=== PATIENT | female | born 1945 | race Caucasian/White ===

== ENCOUNTER 2016-10-12 | Outpatient (CLI) | payer MEDICARE, MEDICAID | END 2016-10-12 12:57 | disposition home or self-care (01) ==

== ENCOUNTER 2017-09-29 10:53 | Outpatient (CLI) | payer MEDICARE, MEDICAID ==
[2017-09-29 18:01] LABS: ALBUMIN 4.1 g/dL (3.2-5.5); ALBUMIN/GLOBULIN RATIO 1.4 (1.0-2.2); ALKALINE PHOSPHATASE 84 IU/L (42-121); ALT ALANINE AMINOTRANSFERASE 17 IU/L (10-60); AST ASPARTATE AMINOTRANSFERASE 26 IU/L (10-42); BILIRUBIN,TOTAL 0.3 mg/dL (0.2-1.0); BUN - BLOOD UREA NITROGEN 32 mg/dL (6-20); CALCIUM 8.8 mg/dL (8.5-10.3); CARBON DIOXIDE - CO2 25 mmol/L (21-32); CHLORIDE 107 mmol/L (101-111); CHOL/HDL RATIO 3.7 (<4.4); CHOLESTEROL 204 mg/dL; CREATININE 1.1 mg/dL (0.4-1.0); GFR - MDRD 49 (>89); GLUCOSE 94 mg/dL (70-100); HDL CHOLESTEROL 55 mg/dL; LDL CHOLESTEROL,CALCULATED 122 mg/dL; LDL/HDL RATIO 2.2 (<4.4); SODIUM 138 mmol/L (135-145); TOTAL PROTEIN 7.1 g/dL (6.7-8.2); VLDL CHOLESTEROL 27 mg/dL
[2017-09-29 18:25] LABS: BASOPHILS # (AUTO) 0.1 10^3/uL (0.0-0.1); BASOPHILS % (AUTO) 0.9 %; EOSINOPHILS # (AUTO) 0.2 10^3/uL (0.0-0.7); EOSINOPHILS % (AUTO) 4.1 %; HGB - HEMOGLOBIN 14.6 g/dL (12.0-16.0); LYMPHOCYTES # (AUTO) 1.7 10^3/uL (1.5-3.5); LYMPHOCYTES % (AUTO) 30.9 %; MEAN CORPUSCULAR HEMOGLOBIN 30.3 pg (27.0-31.0); MEAN CORPUSCULAR HGB CONC 32.9 g/dL (32.0-36.0); MEAN CORPUSCULAR VOLUME 92.1 fL (81.0-99.0); MONOCYTES # (AUTO) 0.4 10^3/uL (0.0-1.0); MONOCYTES % (AUTO) 7.7 %; NEUTROPHILS # (AUTO) 3.1 10^3/uL (1.5-6.6); NEUTROPHILS % (AUTO) 56.4 %; PLT - PLATELET COUNT 176 10^3/uL (130-450); RED BLOOD COUNT 4.83 10^6/uL (4.20-5.40); RED CELL DISTRIBUTION WIDTH 13.4 % (12.0-15.0); WHITE BLOOD COUNT 5.5 x10^3/uL (4.8-10.8)
== END 2017-09-29 10:54 | disposition home or self-care (01) ==
LOC: LAB.F 10:53
PROVIDERS: ATTEND Nurse Practitioner Family
DX: R53.83 Other fatigue (principal); E78.5 Hyperlipidemia, unspecified; E03.9 Hypothyroidism, unspecified
CPT/HCPCS: 36415; 80053; 80061; 84439; 84443; 85025

== ENCOUNTER 2017-11-24 12:25 | Outpatient (CLI) | payer MEDICARE, MEDICAID ==
[2017-11-24 18:00] LABS: THYROID STIMULATING HORMONE 2.55 uIU/mL (0.34-5.60)
[2017-11-24 18:02] LABS: FREE T4 (FREE THYROXINE) 2.07 ng/dL (0.58-1.64)
== END 2017-11-24 12:26 | disposition home or self-care (01) ==
LOC: LAB.R 12:25
PROVIDERS: ATTEND Nurse Practitioner Family
DX: E03.9 Hypothyroidism, unspecified (principal)
CPT/HCPCS: 36415; 84439; 84443

== ENCOUNTER 2018-01-31 10:55 | Outpatient (CLI) | payer MEDICARE, MEDICAID ==
[2018-01-31 17:56] LABS: THYROID STIMULATING HORMONE 5.09 uIU/mL (0.34-5.60)
[2018-01-31 17:59] LABS: FREE T4 (FREE THYROXINE) 0.82 ng/dL (0.58-1.64)
== END 2018-01-31 10:56 | disposition home or self-care (01) ==
LOC: LAB.F 10:55
PROVIDERS: ATTEND Nurse Practitioner Family
DX: E03.9 Hypothyroidism, unspecified (principal)
CPT/HCPCS: 36415; 84439; 84443

== ENCOUNTER 2018-02-21 10:44 | Outpatient (CLI) | payer MEDICARE, MEDICAID ==
[2018-02-21 11:05] LABS: CREATININE 0.9 mg/dL (0.4-1.0)
[2018-02-21] MEDS ORDERED: IOPAMIDOL-300 100 ML VIAL ONE (11:14)
[2018-02-21] MEDS ORDERED: IOPAMIDOL-300 50 ML VIAL ONE (11:14)
[2018-02-21] MEDS ORDERED: IOPAMIDOL-300 50 ML VIAL PO ONE (13:53)
[2018-02-21] MEDS ORDERED: IOPAMIDOL-300 100 ML VIAL IVP ONE (13:53)
--- NOTE | 2018-02-21 16:10 | CT Report ---
Procedure Date: 02/21/2018 Accession Number: [id number] / [id number] Procedure: CT - Chest W/ CPT Code: FULL RESULT: EXAM: Chest W/ 02/21/2018 12:28 PM CLINICAL INDICATION: Endometrial cancer COMPARISON: None TECHNIQUE: Axial CT images of the chest were obtained with 100 mL Isovue 300 intravenously. FINDINGS: The heart and great vessels demonstrate mild atherosclerotic calcification. No hilar or mediastinal lymphadenopathy is present. A small hiatal hernia is noted. The lungs demonstrate minimal atelectasis. No pulmonary nodule or mass lesion is present. No effusion or pneumothorax. Osseous structures demonstrate mild degenerative changes. Please refer to separate report of abdominal CT. IMPRESSION: No evidence of thoracic metastatic disease. CT DOSE REDUCTION STATEMENT In accordance with CT protocol optimization, one or more of the following were used for this exam: automated exposure control, adjustment of mA and or KV based on patient size, or use of iterative reconstructive technique.
--- NOTE | 2018-02-21 16:10 | CT Report ---
Procedure Date: 02/21/2018 Accession Number: [id number] / [id number] Procedure: CT - Abdomen/Pelvis W/ CPT Code: FULL RESULT: EXAM: Abdomen/Pelvis W/ 02/21/2018 12:28 PM CLINICAL INDICATION: Endometrial cancer COMPARISON: None TECHNIQUE: Axial CT images of the abdomen and pelvis were obtained with 100 mL Isovue 300 intravenously as well as oral contrast. FINDINGS: Liver: Small calcified granulomas are noted in the liver. There is a 5 mm hypodensity in the lateral right lobe, too small to further characterize by CT. Spleen: Unremarkable. Pancreas: Unremarkable. Kidneys: Small cortical cysts. No hydronephrosis or solid renal mass. Adrenal glands: Unremarkable. Gallbladder/biliary tree: Unremarkable. Peritoneal cavity: No bowel dilatation, free gas, or free fluid. No abdominal adenopathy. The appendix is seen, and is normal in caliber. Pelvis: Postoperative changes of hysterectomy. Sigmoid diverticulosis, without CT evidence of diverticulitis. In the right adnexa, there is a 3.7 x 2.8 cm mass, suspicious for recurrence, given likely history of EDILIA/BSO. Additionally, at the vaginal cuff, there is a 2.4 x 2.4 cm nodule, separate from the right adnexal mass. In the left anterior abdominal wall, along the anterior margin of the obliques, there is a 3.9 x 3.2 cm mass, suspicious for metastatic implant. Osseous structures demonstrate degenerative changes. IMPRESSION: Likely metastatic disease in the right adnexa, the vaginal cuff, and the left anterior abdominal wall. Results called to Dr. Hrust on 02/21/2018 at 12:[address] DOSE REDUCTION STATEMENT In accordance with CT protocol optimization, one or more of the following were used for this exam: automated exposure control, adjustment of mA and or KV based on patient size, or use of iterative reconstructive technique.
== END 2018-02-21 10:45 | disposition home or self-care (01) ==
LOC: LAB 10:44
PROVIDERS: ATTEND Obstetrics & Gynecology
DX: R19.00 Intra-abdominal and pelvic swelling, mass and lump, unspecified site (principal)
CPT/HCPCS: 36415; 71260; 74177; 82565; Q9967

== ENCOUNTER 2018-06-14 09:46 | Emergency (ER) | payer MEDICARE, MEDICAID ==
[2018-06-14] MEDS ORDERED: SODIUM CHLORIDE 0.9% 1,000 ML IV ONE ×2 (10:28)
[2018-06-14 10:30] LABS: BASOPHILS # (AUTO) 0.1 10^3/uL (0.0-0.1); BASOPHILS % (AUTO) 0.6 %; EOSINOPHILS % (AUTO) 0.1 %; HGB - HEMOGLOBIN 15.6 g/dL (12.0-16.0); LYMPHOCYTES # (AUTO) 1.6 10^3/uL (1.5-3.5); LYMPHOCYTES % (AUTO) 13.4 %; MEAN CORPUSCULAR HEMOGLOBIN 27.9 pg (27.0-31.0); MEAN CORPUSCULAR HGB CONC 33.9 g/dL (32.0-36.0); MEAN CORPUSCULAR VOLUME 82.3 fL (81.0-99.0); MEAN PLATELET VOLUME 6.9 fL (7.9-10.8); MONOCYTES # (AUTO) 0.8 10^3/uL (0.0-1.0); MONOCYTES % (AUTO) 6.8 %; NEUTROPHILS # (AUTO) 9.4 10^3/uL (1.5-6.6); NEUTROPHILS % (AUTO) 79.1 %; PLT - PLATELET COUNT 423 10^3/uL (130-450); RED BLOOD COUNT 5.59 10^6/uL (4.20-5.40); RED CELL DISTRIBUTION WIDTH 15.7 % (12.0-15.0); WHITE BLOOD COUNT 11.9 x10^3/uL (4.8-10.8)
[2018-06-14 10:42] LABS: ALBUMIN 3.7 g/dL (3.2-5.5); ALBUMIN/GLOBULIN RATIO 0.9 (1.0-2.2); BILIRUBIN,TOTAL 0.6 mg/dL (0.2-1.0); CREATININE 0.9 mg/dL (0.4-1.0); TOTAL PROTEIN 7.7 g/dL (6.7-8.2)
[2018-06-14] MEDS ORDERED: ONDANSETRON 4 MG/2 ML VIAL IVP STA (10:42)
--- NOTE | 2018-06-14 10:46 | ED Physician Documentation ---
History of Present Illness - Stated complaint Stated Complaint: VOMITING - Chief complaint Chief Complaint: Abd Pain - History obtained from History obtained from: Patient, Family - History of Present Illness Timing: Yesterday Pain level max: 5 Pain level now: 5 Improved by: nothing Worsened by: nothing - Additonal information Additional information: Patient is a 73-year-old female undergoing chemotherapy for endometrial cancer. Started having nausea and vomiting yesterday that has continued until today. States she tried to take something for nausea but tried to insert it rectally and it did not work. She states it is not a rectal formulation. She has had no fevers. Her abdominal pain is chronic and unchanged. No diarrhea or constipation. Review of Systems Ten Systems: 10 systems reviewed and negative Constitutional: denies: Fever, Chills Ears: denies: Ear pain Nose: denies: Rhinorrhea / runny nose, Congestion Throat: denies: Sore throat Cardiac: denies: Chest pain / pressure Respiratory: denies: Cough GI: reports: Nausea, Vomiting. denies: Diarrhea : denies: Dysuria Skin: denies: Rash Musculoskeletal: denies: Neck pain, Back pain Neurologic: denies: Headache PD PAST MEDICAL HISTORY - Past Medical History Past Medical History: Yes Cardiovascular: High cholesterol Respiratory: Pneumonia Endocrine/Autoimmune: HyPOthyroidism GI: GERD : None HEENT: Other Psych: Depression, Anxiety, Panic attacks, Post traumatic stress disorder, Claustrophobia Musculoskeletal: Osteoarthritis, Fibromyalgia, Fatigue, Chronic back pain Derm: Other drug resistant infections, Eczema - Present Medications Home Medications: Ambulatory Orders Medication Instructions Recorded Confirmed Atorvastatin [Lipitor] 20 mg pe PO DAILY 04/12/16 06/14/18 Indomethacin 50 mg PO DAILY PRN 04/12/16 06/14/18 Levothyroxine [Synthroid] 112 mcg PO DAILY 04/12/16 06/14/18 Topiramate 300 mg PO DAILY 04/12/16 06/14/18 busPIRone [Buspar] 10 mg PO TID 04/12/16 06/14/18 Omeprazole 20 mg PO QPM 08/17/16 06/14/18 clonazePAM [Klonopin] 1 mg PO BID 08/17/16 06/14/18 traMADol [Ultram] 50 mg PO Q4-6H PRN 08/17/16 06/14/18 LORazepam [Lorazepam] 0.5 mg PO Q6H PRN 09/07/16 06/14/18 QUEtiapine [SEROquel] 1 tab ORAL DAILY 05/09/18 06/14/18 Iron,Carbonyl/Folic Acid/Mv-Mn 1 each PO DAILY 05/12/18 06/14/18 [Endur-Vm with Iron Sr Tablet] Multivit-Minerals/Ferrous Gluc 15 ml PO DAILY 05/12/18 06/14/18 [Multi-Christi Liquid] Prochlorperazine Maleate 10 mg PO Q6H PRN #30 tablet 05/12/18 06/14/18 [Compazine] Mouthwash Compounding Base 227 1 cap Q6HR 05/30/18 06/14/18 [Mouthwash-Om] Ondansetron Odt [Zofran] 4 mg TL Q6H PRN #10 tablet 06/14/18 Promethazine Supp [Phenergan Supp] 25 mg [place] Q6H PRN #10 supp 06/14/18 Promethazine [Phenergan] 25 mg PO Q6H PRN #10 tab 06/14/18 - Allergies Allergies/Adverse Reactions: Allergies Allergy/AdvReac Type Severity Reaction Status Date / Time mold Allergy Unknown Verified 06/14/18 10:08 PD ED PE NORMAL - Vitals Vital signs reviewed: Yes - General General: Alert and oriented X 3 - HEENT HEENT: PERRL, Moist mucous membranes - Neck Neck: Supple, no meningeal sign - Cardiac Cardiac: RRR, Strong equal pulses - Respiratory Respiratory: No respiratory distress, Clear bilaterally - Abdomen Abdomen: Soft, Non tender, Non distended - Derm Derm: Warm and dry - Extremities Extremities: No edema, No calf tenderness / cord - Neuro Neuro: Alert and oriented X 3 - Psych Psych: Normal mood, Normal affect Results - Vitals Vitals: Vital Signs - 24 hr 06/14/18 10:07 Temperature 36.7 C Heart Rate 97 Respiratory 16 Rate Blood Pressure 155/87 H O2 Saturation 98 Oxygen O2 Source Room air - Labs Labs: Laboratory Tests 06/14/18 06/14/18 10:25 10:25 WBC 11.9 H RBC 5.59 H Hgb 15.6 Hct 46.0 MCV 82.3 MCH 27.9 MCHC 33.9 RDW 15.7 H Plt Count 423 MPV 6.9 L Neut # (Auto) 9.4 H Lymph # (Auto) 1.6 Gosper # (Auto) 0.8 Eos # (Auto) 0.0 Baso # (Auto) 0.1 Absolute Nucleated RBC 0.01 Nucleated RBC % 0.1 Sodium 137 Potassium 3.9 Chloride 104 Carbon Dioxide 20 L Anion Gap 13.0 BUN 21 H Creatinine 0.9 Estimated GFR (MDRD) 62 L Glucose 136 H Calcium 9.0 Total Bilirubin 0.6 AST 31 ALT 18 Alkaline Phosphatase 138 H Total Protein 7.7 Albumin 3.7 Globulin 4.0 Albumin/Globulin Ratio 0.9 L Lipase 30 PD MEDICAL DECISION MAKING - ED course Complexity details: reviewed results, re-evaluated patient, considered differential, d/w patient ED course: Patient is a 73-year-old female who presents to the emergency department nausea and vomiting. She is currently undergoing chemotherapy for endometrial cancer. Given IV Zofran, Phenergan and normal saline. Tolerating p.o. without difficulty and feels much better. We will prescribe Zofran and Phenergan for home and have her follow-up with her doctor. Patient counseled regarding signs and symptoms for which I believe and urgent re-evaluation would be necessary. Patient with good understanding of and agreement to plan and is comfortable going home at this time This document was made in part using voice recognition software. While efforts are made to proofread this document, sound alike and grammatical errors may occur. - Sepsis Event Vital Signs: Vital Signs - 24 hr 06/14/18 10:07 Temperature 36.7 C Heart Rate 97 Respiratory 16 Rate Blood Pressure 155/87 H O2 Saturation 98 Oxygen O2 Source Room air Departure - Departure Disposition: 01 Home, Self Care Clinical Impression: Vomiting Qualifiers: Vomiting type: unspecified Vomiting Intractability: non-intractable Nausea presence: with nausea Qualified Code(s): R11.2 - Nausea with vomiting, unspecified Condition: Good Instructions: ED Nausea Vomiting Follow-Up: Ibrahima Perkins MD [Primary Care Provider] - Within 1 week Prescriptions: Ondansetron Odt [Zofran] 4 mg TL Q6H PRN #10 tablet PRN Reason: Nausea / Vomiting Promethazine [Phenergan] 25 mg PO Q6H PRN #10 tab PRN Reason: Nausea / Vomiting Promethazine Supp [Phenergan Supp] 25 mg [place] Q6H PRN #10 supp PRN Reason: Nausea / Vomiting Comments: Rest today. Return if you worsen. drink plenty of fluids. Discharge Date/Time: 06/14/18 12:32
[2018-06-14 10:58] LABS: MAGNESIUM 2.5 mg/dL (1.7-2.8); PHOSPHORUS 3.8 mg/dL (2.5-4.6)
[2018-06-14] MEDS ORDERED: PROMETHAZINE INJ 25 MG in SODIUM CHLORIDE 0.9% 50 ML IV STA (11:18)
[2018-06-14] MEDS ORDERED: MAG HYDROX/AL HYDROX/SIMETH 30 ML UDC PO STA (11:53)
[2018-06-14 11:59] VITALS: BP 129/57
== END 2018-06-14 12:32 | disposition home or self-care (01) ==
LOC: ED 09:46
DX: R11.2 Nausea with vomiting, unspecified (principal); C56.9 Malignant neoplasm of unspecified ovary; E03.9 Hypothyroidism, unspecified; E78.00 Pure hypercholesterolemia, unspecified; Z92.21 Personal history of antineoplastic chemotherapy
CPT/HCPCS: 36415; 80053; 83690; 83735; 84100; 85025; 96365; 96375; 99283; A9270; J7040

== ENCOUNTER 2018-06-15 15:38 | Inpatient (IN) | payer MEDICARE, MEDICAID ==
[2018-06-15] MEDS ORDERED: SODIUM CHLORIDE 0.9% 1,000 ML IV ONE ×2 (16:22→16:26)
[2018-06-15] MEDS ORDERED: PROMETHAZINE INJ 25 MG in SODIUM CHLORIDE 0.9% 50 ML IV STA (16:26)
[2018-06-15] MEDS ORDERED: MORPHINE 2 MG/ML CARPUJECT IVP STA (16:27)
--- NOTE | 2018-06-15 16:33 | ED Physician Documentation ---
History of Present Illness - Stated complaint Stated Complaint: VOMITING X2D - Chief complaint Chief Complaint: Abd Pain - History obtained from History obtained from: Patient, Family - History of Present Illness Timing: How many days ago (several days) Pain level max: 5 Pain level now: 5 Improved by: phenergan Worsened by: eating - Additonal information Additional information: Patient is a 73-year-old female who is currently under for endometrial cancer. She has chronic abdominal pain. Has been vomiting the last several days. Was seen here yesterday for same. Given Zofran and Phenergan. Tolerating p.o. well when she left. She states she has had continued vomiting now today. Tried the Phenergan at home and was unable to keep things down. Therefore came back for repeat evaluation. Continues to have abdominal pain as well, though this is unchanged from her baseline. No fevers. Review of Systems Ten Systems: 10 systems reviewed and negative Constitutional: denies: Fever, Chills Respiratory: denies: Cough GI: denies: Nausea, Vomiting, Diarrhea Skin: denies: Rash Musculoskeletal: denies: Neck pain, Back pain Neurologic: denies: Headache PD PAST MEDICAL HISTORY - Past Medical History Cardiovascular: High cholesterol Respiratory: Pneumonia Endocrine/Autoimmune: HyPOthyroidism GI: GERD : None HEENT: Other Psych: Depression, Anxiety, Panic attacks, Post traumatic stress disorder, Claustrophobia Musculoskeletal: Osteoarthritis, Fibromyalgia, Fatigue, Chronic back pain Derm: Other drug resistant infections, Eczema - Past Surgical History Past Surgical History: No - Present Medications Home Medications: Ambulatory Orders Medication Instructions Recorded Confirmed Indomethacin 50 mg PO DAILY PRN 04/12/16 06/15/18 Levothyroxine [Synthroid] 100 mcg PO QDAC 04/12/16 06/15/18 Topiramate 300 mg PO DAILY 04/12/16 06/15/18 Omeprazole 20 mg PO QPM 08/17/16 06/15/18 clonazePAM [Klonopin] 1 mg PO BID PRN 08/17/16 06/15/18 traMADol [Ultram] 50 - 100 mg PO Q6H PRN 08/17/16 06/15/18 LORazepam [Lorazepam] 0.5 mg PO Q6H PRN 09/07/16 06/15/18 QUEtiapine [SEROquel] 100 tab ORAL QPM 05/09/18 06/15/18 Iron,Carbonyl/Folic Acid/Mv-Mn 1 each PO DAILY 05/12/18 06/15/18 [Endur-Vm with Iron Sr Tablet] Multivit-Minerals/Ferrous Gluc 15 ml PO DAILY 05/12/18 06/15/18 [Multi-Christi Liquid] Prochlorperazine Maleate 10 mg PO Q6H PRN #30 tablet 05/12/18 06/15/18 [Compazine] Mouthwash Compounding Base 227 1 cap Q6HR 05/30/18 06/15/18 [Mouthwash-Om] Ondansetron Odt [Zofran] 4 mg TL Q6H PRN #10 tablet 06/14/18 06/15/18 Promethazine Supp [Phenergan Supp] [address] Q6H PRN #10 supp 06/14/18 06/15/18 Promethazine [Phenergan] 25 mg PO Q6H PRN #10 tab 06/14/18 06/15/18 Albuterol Sulf [Ventolin Hfa 2 puffs INH Q4HR PRN 06/15/18 06/15/18 Inhaler] Atorvastatin Calcium 20 mg PO QPM 06/15/18 06/15/18 Buspirone HCl 10 mg PO TID 06/15/18 06/15/18 Sumatriptan Succinate [Imitrex] 50 - 100 mg PO DAILY PRN 06/15/18 06/15/18 - Allergies Allergies/Adverse Reactions: Allergies Allergy/AdvReac Type Severity Reaction Status Date / Time mold Allergy Unknown Verified 06/14/18 10:08 - Social History Does the pt smoke?: No Smoking Status: Never smoker Does the pt drink ETOH?: No Does the pt have substance abuse?: No - Immunizations Immunizations are current?: Yes PD ED PE NORMAL - Vitals Vital signs reviewed: Yes - General General: Alert and oriented X 3, No acute distress - HEENT HEENT: Moist mucous membranes - Neck Neck: Supple, no meningeal sign - Cardiac Cardiac: RRR - Respiratory Respiratory: No respiratory distress, Clear bilaterally - Abdomen Abdomen: Soft, Non tender, Non distended - Derm Derm: Warm and dry - Extremities Extremities: No edema - Neuro Neuro: Alert and oriented X 3 Results - Vitals Vitals: Vital Signs - 24 hr 06/15/18 15:48 Temperature 36.8 C Heart Rate 99 Respiratory 18 Rate Blood Pressure 137/76 H O2 Saturation 95 Oxygen O2 Source Room air - Rads (name of study) CT abd/pelvis Radiology: Prelim report reviewed, EMP read contemporaneously, See rad report PD MEDICAL DECISION MAKING - ED course Complexity details: reviewed results, re-evaluated patient, considered differential, d/w patient, d/w family, d/w pricing consultant ED course: Patient is a 73-year-old female with metastatic endometrial cancer, currently undergoing chemotherapy. She has been vomiting for the past several days. She was seen here yesterday and felt better after Phenergan and attempted to go home. Today the symptoms have persisted. CT scan shows a small bowel obstruction.NG tube was placed and discussed the case with Dr. Alcaraz, general surgery who will consult. Also discussed with Dr. Leon, the hospitalist who accepts. Upon official CT read, there are several other findings including a small hiatal hernia a collection of fluid and gas in the right pelvis, possibly related to a necrotic metastases or possible fistulization with the adjacent bowel. Also there is a filling defect in the iliac vein, possible DVT and will need an ultrasound. This document was made in part using voice recognition software. While efforts are made to proofread this document, sound alike and grammatical errors may occur. - Sepsis Event Vital Signs: Vital Signs - 24 hr 06/15/18 15:48 Temperature 36.8 C Heart Rate 99 Respiratory 18 Rate Blood Pressure 137/76 H O2 Saturation 95 Oxygen O2 Source Room air Departure - Departure Disposition: [facility] DC/Xfer Clinical Impression: Small bowel obstruction, Stage IV adenocarcinoma of endometrium Condition: Stable Discharge Date/Time: 06/15/18 19:47
[2018-06-15 17:36] LABS: BASOPHILS % (AUTO) 0.5 %; EOSINOPHILS % (AUTO) 0.3 %; HGB - HEMOGLOBIN 14.2 g/dL (12.0-16.0); LYMPHOCYTES % (AUTO) 20.3 %; MEAN CORPUSCULAR HEMOGLOBIN 28.2 pg (27.0-31.0); MEAN CORPUSCULAR HGB CONC 33.6 g/dL (32.0-36.0); MEAN CORPUSCULAR VOLUME 83.9 fL (81.0-99.0); MONOCYTES # (AUTO) 0.8 10^3/uL (0.0-1.0); MONOCYTES % (AUTO) 16.7 %; NEUTROPHILS # (AUTO) 3.1 10^3/uL (1.5-6.6); NEUTROPHILS % (AUTO) 62.2 %; PLT - PLATELET COUNT 292 10^3/uL (130-450); RED BLOOD COUNT 5.05 10^6/uL (4.20-5.40); RED CELL DISTRIBUTION WIDTH 15.7 % (12.0-15.0); WHITE BLOOD COUNT 4.9 x10^3/uL (4.8-10.8)
[2018-06-15 17:56] LABS: ALBUMIN 3.7 g/dL (3.2-5.5); ALBUMIN/GLOBULIN RATIO 1.1 (1.0-2.2); BILIRUBIN,TOTAL 0.7 mg/dL (0.2-1.0); CALCIUM 8.9 mg/dL (8.5-10.3); CREATININE 0.9 mg/dL (0.4-1.0); TOTAL PROTEIN 7.1 g/dL (6.7-8.2)
[2018-06-15] MEDS ORDERED: IOPAMIDOL-300 100 ML VIAL ONE (18:02)
[2018-06-15] MEDS ORDERED: MAG HYDROX/AL HYDROX/SIMETH 30 ML UDC PO STA (18:12)
[2018-06-15] MEDS ORDERED: IOPAMIDOL-300 100 ML VIAL IVP ONE (18:22)
[2018-06-15] MEDS ORDERED: ONDANSETRON ODT 4 MG TABLET TL PRN (18:45)
[2018-06-15] MEDS ORDERED: SODIUM CHLORIDE 0.9% 1,000 ML IV SCH (19:00)
--- NOTE | 2018-06-15 19:44 | CT Report ---
Reason: intractable vomiting, abd pain Procedure Date: 06/15/2018 Accession Number: [id number] / [id number] Procedure: CT - Abdomen/Pelvis W/ CPT Code: FULL RESULT: EXAM: CT ABDOMEN AND PELVIS EXAM DATE: 06/15/2018 06:20 PM. CLINICAL HISTORY: Intractable vomiting, abdominal pain. COMPARISONS: CT of the abdomen and pelvis from 02/21/2018. TECHNIQUE: Routine helical CT imaging was performed through the abdomen and pelvis. IV contrast: 100 cc Isovue-300. Enteric contrast: No. Reconstructions: Coronal and sagittal. In accordance with CT protocol optimization, one or more of the following dose reduction techniques were utilized for this exam: automated exposure control, adjustment of mA and/or KV based on patient size, or use of iterative reconstructive technique. FINDINGS: Lung Bases: There is respiratory motion and atelectasis in the lung bases. There is a small hiatal hernia along with fluid-filled distention of the distal esophagus (series 3, image 1). There is wall thickening of the visualized distal esophagus. Liver: There are a couple hepatic calcifications, which are not significantly changed. A subcentimeter hypoattenuating focus in segment 7 is also not significantly changed. Liver is otherwise unremarkable. Gallbladder/Bile Ducts: Gallbladder is distended without stones or wall thickening. The common bile duct is dilated at 9-10 mm, which is increased from the prior examination. No intrahepatic biliary ductal dilation. Spleen: Within normal limits. Pancreas: Unremarkable. Adrenal Glands: No nodules. Kidneys: A cyst arises from the lower pole of the left kidney. A subcentimeter hypoattenuating focus in the right kidney is too small to characterize. No hydronephrosis. Peritoneal Cavity/Bowel: There is dilation of the proximal small bowel to a caliber of 4.2 cm (series 5, image 22). The mid-distal small bowel is distended but is smaller in caliber. For example, a loop of small bowel in the pelvis measures 2.8 cm (series 3, image 70). There appears to be a relative transition in the right abdomen, where there appears to be a short segment of small bowel with pneumatosis (series 3, image 48). The distal and terminal ileum are decompressed. There is suggestion of wall thickening of the distal ileum (series 3, images 58 and series 5, image 24). In the right pelvis, there appears to be an extraluminal collection of fluid and gas, measuring approximately 3.2 x 1.7 cm (series 3, image 69), which is suspicious for abscess. On the prior examination, a lobulated soft tissue mass was present in this region. There is diverticulosis of the sigmoid colon without evidence for acute diverticulitis. Pelvic Organs: Urinary bladder is unremarkable. Uterus is surgically absent. Right pelvic collection, as described above. There is a small amount of fluid in the left cul-de-sac (series 3, image 80), which is new from the prior examination. No pelvic adenopathy is demonstrated. Of note, the right external iliac vein is poorly visualized at the level of the abscess and may be compressed. There is questionable filling defect in the right common femoral vein (series 3, image 80 and series 5, image 20). Previously seen nodularity at the right vaginal cuff is no longer identified. Vasculature: Right iliac and common femoral vein findings, as described above. No abdominal aortic aneurysm. Bones: There is sclerosis at T10, which is similar to the prior examination. This is indeterminate for metastasis. There is scoliosis of the thoracolumbar spine with multilevel degenerative change. Other: No retroperitoneal adenopathy. There is a 5.5 x 2.7 cm low-attenuation structure in the left abdominal wall (series 3, image 44). This is increased in size from 3.3 x 2.3 cm on the prior examination but appears decreased in complexity. A small, nodular component is present inferiorly (series 3, image 47). IMPRESSION: 1. Findings most compatible with small bowel obstruction. However, obstruction may be secondary to combined mechanical and functional etiologies as the bowel tapers distally with relative transition point in the right abdomen, where there is a short segment of pneumatosis intestinalis and multifocal bowel wall thickening. There is reportedly history of endometrial cancer, and findings could be secondary to treatment effect (chemotherapy and/or radiation) or serosal metastatic disease. Other infectious or inflammatory enteritis is also possible. 2. There is a small hiatal hernia with fluid-filled distention of the herniated stomach and esophagus. Note that this may place the patient at risk for aspiration. There is wall thickening of the distal esophagus, which is new from the prior examination and may be secondary to emesis-related inflammation or other esophagitis. 3. A small collection of fluid and gas is present in the right pelvis, in the region of previous nodular soft tissue. This collection is decreased in size from previous soft tissue, suggestive of treatment. However, the presence of gas raises the possibility of infection or potentially fistulization with adjacent bowel. 4. Previously seen nodule at the vaginal cuff is no longer demonstrated, suggestive of treatment effect. The left abdominal wall structure is increased in size but decrease in complexity, which could also represent treatment effect. However, residual, nodular, solid-appearing component is present along the inferior margin. 5. No significant change in calcifications and hypoattenuating focus in the periphery of the liver. Although nonspecific, given the peripheral location, treated serosal metastases are not excluded. Suggest correlation with more remote prior examinations. 6. Sclerosis at T10 is not significantly changed but indeterminate for metastasis. 7. The right external iliac vein appears compressed by the right pelvic fluid and gas collection, and there is possible deep vein thrombus in the visualized right common femoral vein, raising the possibility of deep vein thrombus. Consider ultrasound for further evaluation. RADIA Findings regarding bowel obstruction, pneumatosis, right pelvic fluid and gas collection, possible right common femoral vein deep vein thrombus, and fluid-filled distention of the distal esophagus were discussed with Dr. Miguel Angel Luong by Dr. Floyd Lambert at 19:41 hrs on 06/15/18.
[2018-06-15] MEDS ORDERED: MAGIC MOUTHWASH 120 ML BOTTLE PO PRN (19:58)
[2018-06-15] MEDS: MORPHINE 2 MG/ML CARPUJECT IVP PRN (20:02)
[2018-06-15] MEDS: PROCHLORPERAZINE 10 MG/2 ML VIAL IVP PRN (20:02)
--- NOTE | 2018-06-15 20:21 | HISTORY & PHYSICAL EXAMINATION ---
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 Patient underwent a PET scan on April 11, 2018 which showed hypermetabolic lesions at the vaginal cuff, right adnexa/pelvic sidewall and the left abdominal wall, consistent with metastasis. Patient has since been started on Doxil and Avastin on 05/17/2018 and received 2 cycles last being 2 weeks ago. The patient also has past medical history of recent oral mucositis, peripheral neuropathy, fibromyalgia, chronic fatigue, hypothyroidism, hyperlipidemia, chronic migraines, eczema, depression, anxiety, GERD and obstructive sleep apnea on CPAP. She presented to the emergency department today with a chief complaint of nausea and vomiting. The patient states that she has been having symptoms for a couple of months now. She states that she has been having right lower quadrant abdominal pain and nausea and vomiting. She states that the symptoms of been off and on but they all of a sudden became much worse over the last week. She states over the last week she has been unable to keep anything down. She states that she feels nauseated and vomits anytime she tries to eat or drink anything. She also states that the right lower quadrant abdominal pain that she was having has now moved up to the epigastric area and is radiating across her entire upper abdomen. She states that this pain is become increasingly worse over the last 2 days. She also states that she has begun to have distention of her upper abdomen. She states that she came into the emergency department yesterday and was given Zofran and Phenergan. She was tolerating p.o. intake well before she left the ER. She states that since this morning she has begun having nausea and been vomiting throughout the day. She states that she tried to take Phenergan at home but was unable to keep anything down. She also stated that her abdominal pain was becoming worse and she decided to come back to the emergency department. The patient denies any fevers or chills. She does admit to increasing acid reflux. She otherwise denies any chest pain or shortness of breath. She states that she last had a bowel movement a few days ago. She also admits to a headache but states that she has chronic migraines. She also admits to having had right leg swelling which has since resolved. Patient denies any word vision, runny nose, sore throat, nasal congestion, difficulty swallowing, orthopnea, PND, diarrhea, urinary urgency, urinary frequency, dysuria, joint swelling, joint pain, back pain, neck stiffness, hair loss, skin changes, polyuria, polydipsia, night sweats or any focal neurologic deficits. On presentation to the emergency department the patient was afebrile and slightly tachycardic with a heart rate of 99. Her blood pressure was normal and she was not in any respiratory distress. The patient underwent routine lab work which did show a potassium of 2.8 and a chloride of 94 her electrolytes were otherwise within normal limits. The patient had no elevation in her white blood cell count and had a normal CBC. The patient did undergo a CT of her abdomen and pelvis which showed findings compatible with a small bowel obstruction. The radiologist determined that the obstruction may be secondary to combined mechanical and functional etiologies as the bowel tapers distally with relative transition point in the right abdomen, where there is a short segment of pneumatosis intestinalis and multifocal bowel wall thickening. It was felt that this could be secondary to treatment effect from chemotherapy and/or radiation or serosal metastatic disease. There is also finding of a small fluid collection and gas in the right pelvis which was concerning for possibility of fistulization of the adjacent bowel. The patient was also found to have a right external iliac vein which appeared compressed by the right pelvic fluid and gas collection with concern for possible DVT in the right common femoral vein. The patient did undergo a Doppler ultrasound of her right lower extremity which showed a nonocclusive DVT extending from the proximal femoral vein up to the right external iliac. The patient was admitted to the medical medel for medical management of a small bowel obstruction. History - Past Medical History Cardiovascular: reports: High cholesterol Respiratory: reports: Pneumonia, Sleep apnea, CPAP use Neuro: reports: Migraines, Peripheral neuropathy Endocrine/Autoimmune: reports: HyPOthyroidism GI: reports: GERD OPERATIONS PROJECT MANAGER: reports: Other (Endometrial cancer with metastasis) : reports: None HEENT: reports: Other Psych: reports: Depression, Anxiety, Panic attacks, Post traumatic stress disorder, Claustrophobia Musculoskeletal: reports: Osteoarthritis, Fibromyalgia, Fatigue, Chronic back pain Derm: reports: Other drug resistant infections, Eczema MRSA Hx?: Yes - Past Surgical History /OPERATIONS PROJECT MANAGER: reports: Hysterectomy - Family & Social History Family History: Mother: , Alcoholism, CAD, Father: , Alcoholism, CAD, Brother: Alcoholism Living arrangement: At home Living Situation: With spouse/s.o. Social History Notes: Patient lives in [place] with her whom she has been to for 22 years. Her has had some type of brain injury and has difficulty processing and retaining information therefore they require caregiver support at home. The patient has 3 children one daughter who lives in [place] and is at bedside and seems to be very involved in her mother's care. She also has 1 daughter who is estranged and a son who lives in [place]. The patient previously lived in [place] and moved to [facility] about 8 years ago. She did smoke for 16 years up to a pack a day but quit when she was 35 years old. She denies any alcohol use and she did try to use CBD for pain but did not tolerate it and does not use any illicit drugs. - POLST Patient has POLST: No POLST Status: Full Code Meds/Allgy - Home Medications Home Medications: Ambulatory Orders Medication Instructions Recorded Confirmed Indomethacin 50 mg PO DAILY PRN 04/12/16 06/15/18 Levothyroxine [Synthroid] 100 mcg PO QDAC 04/12/16 06/15/18 Topiramate 300 mg PO DAILY 04/12/16 06/15/18 Omeprazole 20 mg PO QPM 08/17/16 06/15/18 clonazePAM [Klonopin] 1 mg PO BID PRN 08/17/16 06/15/18 traMADol [Ultram] 50 - 100 mg PO Q6H PRN 08/17/16 06/15/18 LORazepam [Lorazepam] 0.5 mg PO Q6H PRN 09/07/16 06/15/18 QUEtiapine [SEROquel] 100 tab ORAL QPM 05/09/18 06/15/18 Iron,Carbonyl/Folic Acid/Mv-Mn 1 each PO DAILY 05/12/18 06/15/18 [Endur-Vm with Iron Sr Tablet] Multivit-Minerals/Ferrous Gluc 15 ml PO DAILY 05/12/18 06/15/18 [Multi-Christi Liquid] Prochlorperazine Maleate 10 mg PO Q6H PRN #30 tablet 05/12/18 06/15/18 [Compazine] Mouthwash Compounding Base 227 1 cap Q6HR 05/30/18 06/15/18 [Mouthwash-Om] Ondansetron Odt [Zofran] 4 mg TL Q6H PRN #10 tablet 06/14/18 06/15/18 Promethazine Supp [Phenergan Supp] 25 mg SD Q6H PRN #10 supp 06/14/18 06/15/18 Promethazine [Phenergan] 25 mg PO Q6H PRN #10 tab 06/14/18 06/15/18 Albuterol Sulf [Ventolin Hfa 2 puffs INH Q4HR PRN 06/15/18 06/15/18 Inhaler] Atorvastatin Calcium 20 mg PO QPM 06/15/18 06/15/18 Buspirone HCl 10 mg PO TID 06/15/18 06/15/18 Sumatriptan Succinate [Imitrex] 50 - 100 mg PO DAILY PRN 06/15/18 06/15/18 - Allergies Allergies/Adverse Reactions: Allergies Allergy/AdvReac Type Severity Reaction Status Date / Time mold Allergy Unknown Verified 06/14/18 10:08 Review of Systems - Other Findings Other Findings: A comprehensive review of systems was performed the pertinent positives and negatives are stated above in the HPI and the remainder of the review of systems is negative. Prior Level of Functionality: She has difficulty with her activities of daily living and has a caregiver at home. Exam - Vital Signs Reviewed Vital Signs: Yes Vital Signs: Vital Signs x48h Temp Pulse Resp BP Pulse Ox 06/15/18 15:48 36.8 C 99 18 137/76 H 95 - Physical Exam General Appearance: positive: Alert, Mild distress (Nausea and unable to tolerate NG tube secondary to pain), Anxious Eyes Bilateral: positive: Normal inspection, PERRL, EOMI, No lid inflammation, Conjunctivae nml, No scleral icterus ENT: positive: ENT inspection nml, Pharynx nml, Oral lesions (mucositis), Dry mucous membranes. negative: Purulent nasal drainage, Pharyngeal erythema Neck: positive: Nml inspection, Thyroid nml, No JVD, Trachea midline. negative: Thyromegaly, Lymphadenopathy (R), Lymphadenopathy (L), Stiff neck, Carotid bruit, Tracheal deviation Respiratory: positive: Chest non-tender, No respiratory distress, Breath sounds nml. negative: Wheezes, Rales, Rhonchi Cardiovascular: positive: Regular rate & rhythm, No murmur, No gallop Peripheral Pulses: positive: 2+ Abdomen: positive: No organomegaly, Nml bowel sounds, Tenderness (Mild tender ness in the right lower quadrant and upper abdomen on both sides and epigastric area), Other (Distended upper abdomen that is soft with no peritoneal signs). negative: Guarding, Rebound, Hepatomegaly, Splenomegaly Back: positive: Nml inspection. negative: CVA tenderness (R), CVA tenderness (L) Skin: positive: Color nml, No rash, Warm, Dry. negative: Cyanosis, Diaphoresis, Pallor Extremities: positive: Non-tender, Full ROM, Nml appearance, Pedal edema (Right greater than left lower extremity) Neurologic/Psychiatric: positive: Oriented x3, CN's nml (2-12), Motor nml, Sensation nml, Mood/affect nml, Other (Patient appears to have mild memory impairment as she cannot remember time frame of events.) Conclusion/Plan - Problem List (1) Small bowel obstruction Conclusion/Plan: Patient presented with abdominal pain, nausea and vomiting which has been getting worse over the last week. She has a history of endometrial cancer with metastasis and has been undergoing chemotherapy after her recurrence of disease earlier this year. Her last chemotherapy treatment was [address] of the patient's abdomen was consistent with small bowel obstruction which was felt to be secondary to combined mechanical and functional etiologies. The patient's bowel appeared to be tapering distally with relative transition point in the right abdomen, where there is a short segment of pneumatosis intestinalis and multifocal bowel wall thickening. The findings could be secondary to treatment effect or serosal metastatic disease. If patient's bowel obstruction is secondary to metastatic disease then it would be unlikely that our surgeon would operate and patient may need to seek other options at tertiary care center if bowel obstruction is not resolving and patient still wants surgery. The patient does not appear ready for palliative options at this point. We will need to talk to the patient's oncologist regarding her prognosis and future plan for therapy. Plan: N.p.o. for bowel rest IV fluids IV antiemetics IV pain control NG tube to suction Surgery consultation Encourage motility IV Pepcid (2) Right leg DVT Conclusion/Plan: The patient has a nonocclusive DVT extending from the proximal femoral vein and profunda femoris vein up to the right external iliac vein. The patient had risk factor of metastatic cancer. Plan: We will treat with Lovenox 1 mg/kg subcu twice daily as patient has active solid organ cancer. Patient will be treated indefinitely given her ongoing cancer. Qualifiers: Affected thrombotic vein of extremity: femoral (3) Oral mucositis Conclusion/Plan: Patient has oral mucositis secondary to ongoing chemotherapy. Patient has been taking Magic mouthwash at home and responded well to treatment. We will continue Magic mouthwash while the patient is hospitalized. (4) Stage IV adenocarcinoma of endometrium Conclusion/Plan: The patient has metastatic adenocarcinoma of the endometrium. She had metastasis to the vaginal cuff as well as the right adnexa/pelvic sidewall and the left abdominal wall. This was a recurrence of her disease after she underwent hysterectomy and adjuvant chemotherapy. Given metastatic disease the patient has a poor prognosis. The patient now presents with a small bowel obstruction which could be secondary to further metastasis. If the patient's bowel obstruction is not resolving she will likely need surgical intervention for which she is a poor candidate and will likely not be able to get surgery here at [facility] given the risk involved. The patient's best option if this bowel obstruction is secondary to metastatic disease may be palliative care or hospice however at this point the patient is not ready to discuss this but she was told that this is something that may need to be discussed very soon in the future. Plan: Hold chemotherapy for now We will talk to the patient's oncologist and have her consult and talk with the patient if she is available. We will get a surgical consult for small bowel obstruction We will continue with supportive care for patient's symptoms of cancer as well as side effects from chemotherapy. (5) Hypokalemia Conclusion/Plan: On presentation the patient's potassium is low at 2.8. This is secondary to ongoing nausea and vomiting and poor oral intake. The patient will get IV potassium replacement both with IV fluid and with potassium rider. We will continue to monitor the patient's potassium and replace as needed. (6) Hypothyroidism Conclusion/Plan: The patient has a history of hypothyroidism and is on levothyroxine 100 mcg at home. For now the patient is n.p.o. and we will hold the Synthroid. If the patient remains n.p.o. for several days we will start her on IV levothyroxine. The patient's TSH will be checked while she is hospitalized. Qualifiers: Hypothyroidism type: unspecified Qualified Code(s): E03.9 - Hypothyroidism, unspecified (7) Depression Conclusion/Plan: The patient has a history of depression and anxiety. Given that she is n.p.o. we will have to hold her oral antidepressants. We will place the patient on Ativan IV as needed for anxiety. Currently the patient's mood appears to be stable. Qualifiers: Depression Type: unspecified Qualified Code(s): F32.9 - Major depressive disorder, single episode, unspecified (8) MILO on CPAP Conclusion/Plan: The patient has a history of obstructive sleep apnea and uses CPAP at home. The patient did not bring her CPAP with her today however the daughter was told to bring in her CPAP when she gets a chance. The patient will be continued on her CPAP at night while she is hospitalized. (9) Chronic migraine Conclusion/Plan: The patient has a history of chronic migraines and continues to have a migraine on presentation. The patient is n.p.o. therefore she will be placed on subcutaneous Imitrex as needed. - Lab Results Lab results reviewed: Yes Fish Bones: 06/15/18 17:24 06/15/18 17:24 Other Lab Results: Laboratory Results WBC 4.9 x10^3/uL (4.8-10.8) 06/15/18 17:24 RBC 5.05 10^6/uL (4.20-5.40) 06/15/18 17:24 Hgb 14.2 g/dL (12.0-16.0) 06/15/18 17:24 Hct 42.4 % (37.0-47.0) 06/15/18 17:24 MCV 83.9 fL (81.0-99.0) 06/15/18 17:24 MCH 28.2 pg (27.0-31.0) 06/15/18 17:24 MCHC 33.6 g/dL (32.0-36.0) 06/15/18 17:24 RDW 15.7 % (12.0-15.0) H 06/15/18 17:24 Plt Count 292 10^3/uL (130-450) 06/15/18 17:24 MPV 7.0 fL (7.9-10.8) L 06/15/18 17:24 Neut # (Auto) 3.1 10^3/uL (1.5-6.6) 06/15/18 17:24 Lymph # (Auto) 1.0 10^3/uL (1.5-3.5) L 06/15/18 17:24 [place] # (Auto) 0.8 10^3/uL (0.0-1.0) 06/15/18 17:24 Eos # (Auto) 0.0 10^3/uL (0.0-0.7) 06/15/18 17:24 Baso # (Auto) 0.0 10^3/uL (0.0-0.1) 06/15/18 17:24 Absolute Nucleated RBC 0.01 x10^3/uL 06/15/18 17:24 Nucleated RBC % 0.2 /100WBC 06/15/18 17:24 Sodium 138 mmol/L (135-145) 06/15/18 17:24 Potassium 2.8 mmol/L (3.5-5.0) L 06/15/18 17:24 Chloride 94 mmol/L (101-111) L 06/15/18 17:24 Carbon Dioxide 31 mmol/L (21-32) 06/15/18 17:24 Anion Gap 13.0 (6-13) 06/15/18 17:24 BUN 20 mg/dL (6-20) 06/15/18 17:24 Creatinine 0.9 mg/dL (0.4-1.0) 06/15/18 17:24 Estimated GFR (MDRD) 62 (>89) L 06/15/18 17:24 Glucose 110 mg/dL (70-100) H 06/15/18 17:24 Calcium 8.9 mg/dL (8.5-10.3) 06/15/18 17:24 Total Bilirubin 0.7 mg/dL (0.2-1.0) 06/15/18 17:24 AST < 10 IU/L (10-42) L 06/15/18 17:24 ALT 16 IU/L (10-60) 06/15/18 17:24 Alkaline Phosphatase 111 IU/L (42-121) 06/15/18 17:24 Total Protein 7.1 g/dL (6.7-8.2) 06/15/18 17:24 Albumin 3.7 g/dL (3.2-5.5) 06/15/18 17:24 Globulin 3.4 g/dL (2.1-4.2) 06/15/18 17:24 Albumin/Globulin Ratio 1.1 (1.0-2.2) 06/15/18 17:24 Lipase 33 U/L (22-51) 06/15/18 17:24 - Diagnostic Imaging Results Diagnostic Imaging Results: positive: Final report reviewed Diagnostic Imaging Results Comments: EXAM: CT ABDOMEN AND PELVIS EXAM DATE: 06/15/2018 06:20 PM. CLINICAL HISTORY: Intractable vomiting, abdominal pain. COMPARISONS: CT of the abdomen and pelvis from 02/21/2018. TECHNIQUE: Routine helical CT imaging was performed through the abdomen and pelvis. IV contrast: 100 cc Isovue-300. Enteric contrast: No. Reconstructions: Coronal and sagittal. In accordance with CT protocol optimization, one or more of the following dose reduction techniques were utilized for this exam: automated exposure control, adjustment of mA and/or KV based on patient size, or use of iterative reconstructive technique. FINDINGS: Lung Bases: There is respiratory motion and atelectasis in the lung bases. There is a small hiatal hernia along with fluid-filled distention of the distal esophagus (series 3, image 1). There is wall thickening of the visualized distal esophagus. Liver: There are a couple hepatic calcifications, which are not significantly changed. A subcentimeter hypoattenuating focus in segment 7 is also not significantly changed. Liver is otherwise unremarkable. Gallbladder/Bile Ducts: Gallbladder is distended without stones or wall thickening. The common bile duct is dilated at 9-10 mm, which is increased from the prior examination. No intrahepatic biliary ductal dilation. Spleen: Within normal limits. Pancreas: Unremarkable. Adrenal Glands: No nodules. Kidneys: A cyst arises from the lower pole of the left kidney. A subcentimeter hypoattenuating focus in the right kidney is too small to characterize. No hydronephrosis. Peritoneal Cavity/Bowel: There is dilation of the proximal small bowel to a caliber of 4.2 cm (series 5, image 22). The mid-distal small bowel is distended but is smaller in caliber. For example, a loop of small bowel in the pelvis measures 2.8 cm (series 3, image 70). There appears to be a relative transition in the right abdomen, where there appears to be a short segment of small bowel with pneumatosis (series 3, image 48). The distal and terminal ileum are decompressed. There is suggestion of wall thickening of the distal ileum (series 3, images 58 and series 5, image 24). In the right pelvis, there appears to be an extraluminal collection of fluid and gas, measuring approximately 3.2 x 1.7 cm (series 3, image 69), which is suspicious for abscess. On the prior examination, a lobulated soft tissue mass was present in this region. There is diverticulosis of the sigmoid colon without evidence for acute diverticulitis. Pelvic Organs: Urinary bladder is unremarkable. Uterus is surgically absent. Right pelvic collection, as described above. There is a small amount of fluid in the left cul-de-sac (series 3, image 80), which is new from the prior examination. No pelvic adenopathy is demonstrated. Of note, the right external iliac vein is poorly visualized at the level of the abscess and may be compressed. There is questionable filling defect in the right common femoral vein (series 3, image 80 and series 5, image 20). Previously seen nodularity at the right vaginal cuff is no longer identified. Vasculature: Right iliac and common femoral vein findings, as described above. No abdominal aortic aneurysm. Bones: There is sclerosis at T10, which is similar to the prior examination. This is indeterminate for metastasis. There is scoliosis of the thoracolumbar spine with multilevel degenerative change. Other: No retroperitoneal adenopathy. There is a 5.5 x 2.7 cm low-attenuation structure in the left abdominal wall (series 3, image 44). This is increased in size from 3.3 x 2.3 cm on the prior examination but appears decreased in complexity. A small, nodular component is present inferiorly (series 3, image 47). IMPRESSION: 1. Findings most compatible with small bowel obstruction. However, obstruction may be secondary to combined mechanical and functional etiologies as the bowel tapers distally with relative transition point in the right abdomen, where there is a short segment of pneumatosis intestinalis and multifocal bowel wall thickening. There is reportedly history of endometrial cancer, and findings could be secondary to treatment effect (chemotherapy and/or radiation) or serosal metastatic disease. Other infectious or inflammatory enteritis is also possible. 2. There is a small hiatal hernia with fluid-filled distention of the herniated stomach and esophagus. Note that this may place the patient at risk for aspiration. There is wall thickening of the distal esophagus, which is new from the prior examination and may be secondary to emesis-related inflammation or other esophagitis. 3. A small collection of fluid and gas is present in the right pelvis, in the region of previous nodular soft tissue. This collection is decreased in size from previous soft tissue, suggestive of treatment. However, the presence of gas raises the possibility of infection or potentially fistulization with adjacent bowel. 4. Previously seen nodule at the vaginal cuff is no longer demonstrated, suggestive of treatment effect. The left abdominal wall structure is increased in size but decrease in complexity, which could also represent treatment effect. However, residual, nodular, solid-appearing component is present along the inferior margin. 5. No significant change in calcifications and hypoattenuating focus in the periphery of the liver. Although nonspecific, given the peripheral location, treated serosal metastases are not excluded. Suggest correlation with more remote prior examinations. 6. Sclerosis at T10 is not significantly changed but indeterminate for metastasis. 7. The right external iliac vein appears compressed by the right pelvic fluid and gas collection, and there is possible deep vein thrombus in the visualized right common femoral vein, raising the possibility of deep vein thrombus. Consider ultrasound for further evaluation. - EKG Results EKG Interpreted Independently: Yes Core Measures - Anticipated LOS I expect patient to be DC'd or transferred within 96 hours.: Yes - DVT/VTE - Prophylaxis VTE/DVT Prophylaxis med ordered at admit?: Yes
[2018-06-15] MEDS ORDERED: PHENOL THROAT SPRAY 177 ML MM PRN (20:29)
[2018-06-15] MEDS ORDERED: LORazepam 2 MG/ML VIAL IVP PRN (20:47)
[2018-06-15] MEDS ORDERED: FAMOTIDINE 20 MG in SODIUM CHLORIDE 0.9% 50 ML IV SCH (21:00)
[2018-06-15] MEDS: POTASSIUM CHLOR 10 MEQ/100 ML 10 MEQ/100 ML BAG IV SCH ×2 (21:05→22:59)
[2018-06-15] MEDS: NS W/20 MEQ KCL 1,000 ML IV SCH (21:15)
[2018-06-15] MEDS ORDERED: FAMOTIDINE 20 MG/50 ML 50 ML IV ONE (21:21)
[2018-06-15] MEDS: FAMOTIDINE 20 MG/50 ML 50 ML IV SCH (21:32)
[2018-06-15] MEDS: ONDANSETRON 4 MG/2 ML VIAL IVP PRN (21:43)
--- NOTE | 2018-06-15 22:41 | Ultrasound Report ---
Reason: CT concerning for right femoral DVT Procedure Date: 06/15/2018 Accession Number: [id number] / [id number] Procedure: US - Duplex Ext Veins Right CPT Code: FULL RESULT: EXAM: RIGHT LOWER EXTREMITY VENOUS ULTRASOUND EXAM DATE: 06/15/2018 10:05 PM. CLINICAL HISTORY: CT concerning for right femoral DVT. COMPARISON: ABDOMEN/PELVIS W/ 06/15/2018 6:15 PM. TECHNIQUE: Real-time sonographic vascular imaging was performed by the inspector technician through the lower extremity utilizing both color-flow and Doppler spectral analysis. Multiple digital media representative static images were saved for review. FINDINGS: Common Femoral Vein (CFV): Nonocclusive thrombus, which also extends up into the right external iliac vein. CFV-GSV Junction: Nonocclusive thrombus. Profunda Femoral Vein (PFV): Nonocclusive thrombus.. Femoral Vein (FV) Prox: Nonocclusive thrombus. Femoral Vein (FV) Mid: Normal. Femoral Vein (FV) Dist: Normal. Popliteal Vein: Normal. Posterior Tibial Veins: Normal. Peroneal Veins: Normal. Other: None. IMPRESSION: Nonocclusive DVT extending from the proximal femoral vein and profunda femoris vein up to the right external iliac vein. Critical result: Results called to Dr. López on 06/15/2018 at 10:40 PM. DURGA
[2018-06-15] MEDS ORDERED: ENOXAPARIN 80 MG/0.8 ML SYRINGE SUBQ SCH (23:00)
[2018-06-16] MEDS ORDERED: SUMAtriptan 6 MG/0.5 ML VIAL SUBQ ONE (00:09)
[2018-06-16] MEDS: POTASSIUM CHLOR 10 MEQ/100 ML 10 MEQ/100 ML BAG IV SCH ×2 (00:15→01:23)
[2018-06-16] MEDS: SODIUM CHLORIDE FLUSH 0.9% 10 ML SYRINGE IVP SCH ×4 (00:17→23:11)
[2018-06-16] MEDS: NS W/20 MEQ KCL 1,000 ML IV SCH ×3 (04:33→21:02)
[2018-06-16 06:30] LABS: BASOPHILS # (AUTO) 0.1 10^3/uL (0.0-0.1); BASOPHILS % (AUTO) 1.1 %; EOSINOPHILS % (AUTO) 0.8 %; HGB - HEMOGLOBIN 13.6 g/dL (12.0-16.0); LYMPHOCYTES # (AUTO) 1.1 10^3/uL (1.5-3.5); LYMPHOCYTES % (AUTO) 21.9 %; MEAN CORPUSCULAR HEMOGLOBIN 28.2 pg (27.0-31.0); MEAN CORPUSCULAR HGB CONC 33.6 g/dL (32.0-36.0); MEAN PLATELET VOLUME 6.9 fL (7.9-10.8); MONOCYTES # (AUTO) 1.1 10^3/uL (0.0-1.0); MONOCYTES % (AUTO) 20.5 %; NEUTROPHILS # (AUTO) 2.9 10^3/uL (1.5-6.6); NEUTROPHILS % (AUTO) 55.7 %; PLT - PLATELET COUNT 256 10^3/uL (130-450); RED BLOOD COUNT 4.81 10^6/uL (4.20-5.40); RED CELL DISTRIBUTION WIDTH 15.7 % (12.0-15.0); WHITE BLOOD COUNT 5.2 x10^3/uL (4.8-10.8)
[2018-06-16 06:42] LABS: CALCIUM 8.4 mg/dL (8.5-10.3); CREATININE 0.8 mg/dL (0.4-1.0)
[2018-06-16] MEDS: MORPHINE 2 MG/ML CARPUJECT IVP PRN ×5 (06:59→23:59)
[2018-06-16] MEDS: FAMOTIDINE 20 MG/50 ML 50 ML IV SCH ×2 (07:52→21:02)
[2018-06-16] MEDS: POLYETHYLENE GLYCOL 3350 17 GM PACKET PO SCH (07:55)
[2018-06-16] MEDS: ENOXAPARIN 100 MG/ML SYRINGE SUBQ SCH ×2 (08:00→21:02)
[2018-06-16] MEDS: PROCHLORPERAZINE 10 MG/2 ML VIAL IVP PRN ×2 (12:10→18:52)
--- NOTE | 2018-06-16 12:16 | PROVIDER PROGRESS NOTE ---
Subjective - Prog Note Date Prog Note Date: 06/16/18 Prog Note Time: 12:17 - Subjective Pt reports feeling: Improved Subjective: She had a bowel movement followed by 2 liquid stools this morning. A lot of her distention is gone. Her stomach does not feels like she did "a lot of sit ups". She denies chest pain, palpitations, shortness of breath. We spoke about the nature of endometrial cancer and how it spreads and metastasi ze. She was thinking of it as solid tumor spread. Were discrete tumors could be removed or followed. I explained that both endometrial and ovarian tend to have a more peritoneal studding in appearance. Overnight there is no fever, and she has a normal white cell count. General surgery will see her today for consultation. Current Medications - Current Medications Current Medications: Active Medications Enoxaparin Sodium (Lovenox) 90 mg SUBQ BID [facility] Last Admin: 06/16/18 08:00 Dose: 90 mg Potassium Chloride/Sodium Chloride (Normal Saline 0.9% W/20 Meq Kcl) 1,000 mls @ 125 mls/hr IV .Q8H [facility] Last Admin: 06/16/18 04:33 Dose: 125 mls/hr Famotidine (Pepcid 20 Mg/50 Ml) 50 mls @ 100 mls/hr IV BID [facility] Last Infusion: 06/16/18 09:00 Dose: Infused Lorazepam (Ativan Inj (Vial)) 1 mg IVP Q6H PRN PRN Reason: Anxiety Morphine Sulfate (Morphine (Carpuject)) 2 mg IVP Q2HR PRN PRN Reason: Pain 8 to 10 Last Admin: 06/16/18 10:02 Dose: 2 mg Multi-Ingredient Mouthwash/Gargle () 30 ml PO Q4H PRN PRN Reason: Mouth Sore Pain Ondansetron HCl (Zofran Inj) 4 mg IVP Q6HR PRN PRN Reason: Nausea / Vomiting Last Admin: 06/15/18 21:43 Dose: 4 mg Ondansetron HCl (Zofran Odt) 4 mg TL Q6HR PRN PRN Reason: Nausea / Vomiting Last Admin: 06/16/18 10:02 Dose: 4 mg Phenol/Menthol (Chloraseptic) 2 sprays MM Q2HR PRN PRN Reason: Throat Pain Last Admin: 06/16/18 07:54 Dose: 2 sprays Polyethylene Glycol (Miralax) 17 gm PO DAILY [facility] Last Admin: 06/16/18 07:55 Dose: Not Given Prochlorperazine Edisylate (Compazine Inj) 10 mg IVP Q6HR PRN PRN Reason: Nausea / Vomiting Last Admin: 06/16/18 12:10 Dose: 10 mg Sodium Chloride (Normal Saline Flush 0.9%) 10 ml IVP PRN PRN PRN Reason: NEEDED PER PROVIDER ORDERS Sodium Chloride (Normal Saline Flush 0.9%) 10 ml IVP 0100,0900,1700 [facility] Last Admin: 06/16/18 12:10 Dose: 10 ml Indomethacin 50 mg PO DAILY PRN 04/12/16 Levothyroxine [Synthroid] 100 mcg PO QDAC 04/12/16 Topiramate 300 mg PO QPM 04/12/16 Omeprazole 20 mg PO DAILY 08/17/16 clonazePAM [Klonopin] 1 mg PO BID PRN 08/17/16 LORazepam [Lorazepam] 0.5 mg PO Q6H PRN 09/07/16 QUEtiapine [SEROquel] 100 tab ORAL QPM 05/09/18 Multivit-Minerals/Ferrous Gluc [Multi-Christi Liquid] 15 ml PO DAILY 05/12/18 Mouthwash Compounding Base 227 [Mouthwash-Om] 10 ml PO Q6HR 05/30/18 Albuterol Sulf [Ventolin Hfa Inhaler] 2 puffs INH Q4HR PRN 06/15/18 Atorvastatin Calcium 20 mg PO QPM 06/15/18 Buspirone HCl 10 mg PO TID 06/15/18 Sumatriptan Succinate [Imitrex] 100 mg PO DAILY PRN 06/15/18 Cholecalciferol (Vitamin D3) [Vitamin D3] 5,000 unit PO DAILY 06/16/18 Objective - Vital Signs/Intake & Output Reviewed Vital Signs: Yes Vital Signs: Vital Signs x48h Temp Pulse Resp BP Pulse Ox 06/16/18 07:48 37 C 85 20 102/53 L 95 Intake & Output: Intake & Output 06/13/18 06/14/18 06/15/18 06/16/18 23:59 23:59 23:59 23:59 Intake Total 1301 1162.5 Balance 1301 1162.5 - Objective General Appearance: positive: No acute distress, Alert, Other (Last night she pulled out her NG tube. It was making her so miserable in her nose that she could not take it anymore. She has not had any emesis. Well-nourished well- developed female who looks stated age, with darius dyed bright purple hair.) Eyes Bilateral: positive: PERRL ENT: positive: Other (Beefy red tongue, mucosa from mucositis. No evidence of Agnes) Neck: positive: No JVD. negative: Lymphadenopathy (R), Lymphadenopathy (L), Stiff neck, Carotid bruit Respiratory: positive: Chest non-tender. negative: Wheezes, Rales, Rhonchi Cardiovascular: positive: Regular rate & rhythm, Systolic murmur. negative: Gallop/S4, Friction rub Abdomen: positive: Tenderness (mild and diffuse), Abnml bowel sounds (hypoactive), Other (mildly distended). negative: No organomegaly, Guarding, Re bound Skin: positive: Warm, Dry, Pallor Extremities: positive: Non-tender, No pedal edema Neurologic/Psychiatric: positive: Oriented x3, CN's nml (2-12), Motor nml - Lab Results Fish Bones: 06/16/18 06:10 06/16/18 06:10 Other Labs: Lab Results x24hrs 06/16/18 06/16/18 06/16/18 Range/Units 06:10 06:10 06:10 WBC 5.2 (4.8-10.8) x10^3/uL RBC 4.81 (4.20-5.40) 10^6/uL Hgb 13.6 (12.0-16.0) g/dL Hct 40.4 (37.0-47.0) % MCV 84.0 (81.0-99.0) fL MCH 28.2 (27.0-31.0) pg MCHC 33.6 (32.0-36.0) g/dL RDW 15.7 H (12.0-15.0) % Plt Count 256 (130-450) 10^3/uL MPV 6.9 L (7.9-10.8) fL Neut # (Auto) 2.9 (1.5-6.6) 10^3/uL Lymph # (Auto) 1.1 L (1.5-3.5) 10^3/uL Snyder # (Auto) 1.1 H (0.0-1.0) 10^3/uL Eos # (Auto) 0.0 (0.0-0.7) 10^3/uL Baso # (Auto) 0.1 (0.0-0.1) 10^3/uL Absolute Nucleated RBC 0.01 x10^3/uL Nucleated RBC % 0.1 /100WBC Sodium 137 (135-145) mmol/L Potassium 3.6 (3.5-5.0) mmol/L Chloride 101 (101-111) mmol/L Carbon Dioxide 25 (21-32) mmol/L Anion Gap 11.0 (6-13) BUN 20 (6-20) mg/dL Creatinine 0.8 (0.4-1.0) mg/dL Estimated GFR (MDRD) 71 L (>89) Glucose 101 H (70-100) mg/dL Calcium 8.4 L (8.5-10.3) mg/dL Total Bilirubin (0.2-1.0) mg/dL AST (10-42) IU/L ALT (10-60) IU/L Alkaline Phosphatase (42-121) IU/L Total Protein (6.7-8.2) g/dL Albumin (3.2-5.5) g/dL Globulin (2.1-4.2) g/dL Albumin/Globulin Ratio (1.0-2.2) Lipase (22-51) U/L TSH 4.38 (0.34-5.60) uIU/mL 06/15/18 06/15/18 Range/Units 17:24 17:24 WBC 4.9 (4.8-10.8) x10^3/uL RBC 5.05 (4.20-5.40) 10^6/uL Hgb 14.2 (12.0-16.0) g/dL Hct 42.4 (37.0-47.0) % MCV 83.9 (81.0-99.0) fL MCH 28.2 (27.0-31.0) pg MCHC 33.6 (32.0-36.0) g/dL RDW 15.7 H (12.0-15.0) % Plt Count 292 (130-450) 10^3/uL MPV 7.0 L (7.9-10.8) fL Neut # (Auto) 3.1 (1.5-6.6) 10^3/uL Lymph # (Auto) 1.0 L (1.5-3.5) 10^3/uL Snyder # (Auto) 0.8 (0.0-1.0) 10^3/uL Eos # (Auto) 0.0 (0.0-0.7) 10^3/uL Baso # (Auto) 0.0 (0.0-0.1) 10^3/uL Absolute Nucleated RBC 0.01 x10^3/uL Nucleated RBC % 0.2 /100WBC Sodium 138 (135-145) mmol/L Potassium 2.8 L (3.5-5.0) mmol/L Chloride 94 L (101-111) mmol/L Carbon Dioxide 31 (21-32) mmol/L Anion Gap 13.0 (6-13) BUN 20 (6-20) mg/dL Creatinine 0.9 (0.4-1.0) mg/dL Estimated GFR (MDRD) 62 L (>89) Glucose 110 H (70-100) mg/dL Calcium 8.9 (8.5-10.3) mg/dL Total Bilirubin 0.7 (0.2-1.0) mg/dL AST 32 (10-42) IU/L ALT 16 (10-60) IU/L Alkaline Phosphatase 111 (42-121) IU/L Total Protein 7.1 (6.7-8.2) g/dL Albumin 3.7 (3.2-5.5) g/dL Globulin 3.4 (2.1-4.2) g/dL Albumin/Globulin Ratio 1.1 (1.0-2.2) Lipase 33 (22-51) U/L TSH (0.34-5.60) uIU/mL ABX Reporting Has patient been on IV antibiotics over the past 48 hours?: No Assessment/Plan - Problem List (1) Small bowel obstruction Impression: Patient presented with abdominal pain, nausea and vomiting which has been getting worse over the last week. She has a history of endometrial cancer with metastasis and has been undergoing chemotherapy after her recurrence of disease earlier this year. Her last chemotherapy treatment was [address] of the patient's abdomen was consistent with small bowel obstruction which was felt to be secondary to combined mechanical and functional etiologies. The patient's bowel appeared to be tapering distally with relative transition point in the right abdomen, where there is a short segment of pneumatosis intestinalis and multifocal bowel wall thickening. The findings could be secondary to treatment effect or serosal metastatic disease. If patient's bowel obstruction is secondary to metastatic disease then it would be unlikely that our surgeon would operate and patient may need to seek other options at tertiary care center if bowel obstruction is not resolving and patient still wants surgery. The patient does not appear ready for palliative options at this point. We will need to talk to the patient's oncologist regarding her prognosis and future plan for therapy. Today she has had a bowel movement followed by 2 liquid stools. Plan: N.p.o. to be changed to clear liquids. IV fluids IV antiemetics IV pain control NG tube to suction was done at first but she pulled it out. Couldn't stand it anymore. So out since late last night. Surgery consultation called and he will see her this am. Encourage motility IV Pepcid (2) Right leg DVT Conclusion/Plan: The patient has a nonocclusive DVT extending from the proximal femoral vein and profunda femoris vein up to the right external iliac vein. The patient had risk factor of metastatic cancer. Plan: We will treat with Lovenox 1 mg/kg subcu twice daily as patient has active solid organ cancer. Patient will be treated indefinitely given her ongoing cancer. Qualifiers: Affected thrombotic vein of extremity: femoral (3) Oral mucositis Conclusion/Plan: Patient has oral mucositis secondary to ongoing chemotherapy. Patient has been taking Magic mouthwash at home and responded well to treatment. We will continue Magic mouthwash while the patient is hospitalized. (4) Stage IV adenocarcinoma of endometrium Conclusion/Plan: The patient has metastatic adenocarcinoma of the endometrium. She had metastasis to the vaginal cuff as well as the right adnexa/pelvic sidewall and the left abdominal wall. This was a recurrence of her disease after she underwent hysterectomy and adjuvant chemotherapy. Given metastatic disease the patient has a poor prognosis. The patient now presents with a small bowel obstruction which could be secondary to further metastasis. If the patient's bowel obstruction is not resolving she will likely need surgical intervention for which she is a poor candidate and will likely not be able to get surgery here at [facility] given the risk involved. The patient's best option if this bowel obstruction is secondary to metastatic disease may be palliative care or hospice however at this point the patient is not ready to d iscuss this but she was told that this is something that may need to be discussed very soon in the future. Plan: Hold chemotherapy for now. According to [facility] clinical actuary manager, she had Doxil and Bevacizumab. She had last done 05/17/18 and did not have 06/14/18 scheduled dose. Unclear why not. In any case, She cannot have any surgery for 4 weeks before or after Bevacizumab. We will talk to the patient's oncologist and have her consult and talk with the patient if she is available. We will get a surgical consult for small bowel obstruction and he will see her this am. We will continue with supportive care for patient's symptoms of cancer as well as side effects from chemotherapy. (5) Hypokalemia Conclusion/Plan: On presentation the patient's potassium is low at 2.8. This is secondary to ongoing nausea and vomiting and poor oral intake. The patient received IV potassium replacement both with IV fluid and with potassium rider. We will continue to monitor the patient's potassium and replace as needed.This am she is 3.6 (6) Hypothyroidism Conclusion/Plan: The patient has a history of hypothyroidism and is on levothyroxine 100 mcg at home. For now the patient is n.p.o. and we will hold the Synthroid. If the patient remains n.p.o. for several days we will start her on IV levothyroxine. The patient's TSH is 4.38 so on the high end of normal. She may not be absorbing well. Qualifiers: Hypothyroidism type: unspecified Qualified Code(s): E03.9 - Hypothyroidism, unspecified (7) Depression Conclusion/Plan: The patient has a history of depression and anxiety. Given that she is n.p.o. we will have to hold her oral antidepressants. We will place the patient on Ativan IV as needed for anxiety. Currently the patient's mood appears to be stable. Qualifiers: Depression Type: unspecified Qualified Code(s): F32.9 - Major depressive disorder, single episode, unspecified (8) MILO on CPAP Conclusion/Plan: The patient has a history of obstructive sleep apnea and uses CPAP at home. The patient did not bring her CPAP with her today however the daughter was told to bring in her CPAP when she gets a chance. The patient will be continued on her CPAP at night while she is hospitalized. (9) Chronic migraine Conclusion/Plan: The patient has a history of chronic migraines and continues to have a migraine on presentation. The patient is n.p.o. therefore she will be placed on subcutaneous Imitrex as needed.
--- NOTE | 2018-06-16 12:36 | XRAY Report ---
Reason: sbo followup Procedure Date: 06/16/2018 Accession Number: [id number] / [id number] Procedure: XR - Abdomen 1 View X-Ray CPT Code: 47484 FULL RESULT: EXAM: ABDOMEN RADIOGRAPHY EXAM DATE: 06/16/2018 09:42 AM. CLINICAL HISTORY: Sbo followup. COMPARISON: Abdomen pelvis CT 06/15/2018. TECHNIQUE: 1 view. FINDINGS: Bowel Gas Pattern: There are persistently dilated stacked loops of small bowel, but somewhat decreased conspicuity. There are a few differential fluid levels. Right colonic interposition is noted. Lateral spinal curvature is present. IMPRESSION: Persistently dilated stacked loops of small bowel with differential air-fluid levels. Findings are consistent with small bowel obstruction, but the examination is slightly improved compared to the prior day. RADIA
[2018-06-16] MEDS: MAG HYDROX/AL HYDROX/SIMETH 30 ML UDC PO PRN ×2 (13:14→17:07)
[2018-06-16] MEDS: PANTOPRAZOLE 40 MG TABLET PO SCH (13:14)
[2018-06-16] MEDS: SODIUM CHLORIDE FLUSH 0.9% 10 ML SYRINGE IVP PRN ×3 (17:07→23:59)
[2018-06-16] MEDS: ONDANSETRON 4 MG/2 ML VIAL IVP PRN ×2 (17:07→23:59)
--- NOTE | 2018-06-16 22:49 | MISCELLANEOUS PROVIDER NOTE ---
Miscellaneous Provider Note - - Note: At the request of Dr. Leon I went to obtain a H&P and opine on this 73 year old female with a bowel obstruction with a history of endometrial cancer who is currently receiving treatment. I greeted the patient, told her my name and identified myself as the surgeon drone pilot that had been requested to see her and opine on her medical and possible surgical issue. The patient, without being rude at all, informed me that she was going to take a nap and did not want to speak with me at this time. I explained that as the drone pilot surgeon I could not guarantee when I would be available again to speak with her but that I would definitely be by tomorrow sometime to check on her. She stated that this was okay with her and I turned off the lights in the room so she could take her nap.
[2018-06-17] MEDS: MAG HYDROX/AL HYDROX/SIMETH 30 ML UDC PO PRN ×2 (04:27→11:04)
[2018-06-17] MEDS: PROCHLORPERAZINE 10 MG/2 ML VIAL IVP PRN ×2 (04:28→11:35)
[2018-06-17] MEDS: NS W/20 MEQ KCL 1,000 ML IV SCH (05:25)
[2018-06-17] MEDS: PANTOPRAZOLE 40 MG TABLET PO SCH (06:16)
[2018-06-17] MEDS: MORPHINE 2 MG/ML CARPUJECT IVP PRN ×2 (06:16→11:35)
[2018-06-17 06:48] LABS: BASOPHILS % (AUTO) 0.9 %; EOSINOPHILS % (AUTO) 0.5 %; HGB - HEMOGLOBIN 12.5 g/dL (12.0-16.0); LYMPHOCYTES # (AUTO) 0.7 10^3/uL (1.5-3.5); MEAN CORPUSCULAR HEMOGLOBIN 28.4 pg (27.0-31.0); MEAN CORPUSCULAR HGB CONC 33.7 g/dL (32.0-36.0); MEAN CORPUSCULAR VOLUME 84.3 fL (81.0-99.0); MEAN PLATELET VOLUME 7.2 fL (7.9-10.8); MONOCYTES # (AUTO) 0.7 10^3/uL (0.0-1.0); MONOCYTES % (AUTO) 13.5 %; NEUTROPHILS % (AUTO) 72.1 %; PLT - PLATELET COUNT 195 10^3/uL (130-450); WHITE BLOOD COUNT 5.5 x10^3/uL (4.8-10.8)
[2018-06-17 06:59] LABS: CALCIUM 7.8 mg/dL (8.5-10.3); CREATININE 0.9 mg/dL (0.4-1.0)
[2018-06-17] MEDS: ENOXAPARIN 100 MG/ML SYRINGE SUBQ SCH (08:03)
[2018-06-17] MEDS: POLYETHYLENE GLYCOL 3350 17 GM PACKET PO SCH (08:10)
[2018-06-17] MEDS: FAMOTIDINE 20 MG/50 ML 50 ML IV SCH (08:10)
[2018-06-17 08:13] VITALS: BP 119/59
--- NOTE | 2018-06-17 08:19 | CONSULTATION NOTE ---
Referring Provider Name of Referring Provider:: Dr. Karla Leon Consult Date: 06/17/18 Chief Complaint - Chief Complaint Chief Complaint: Small bowel obstruction History of Present Illness - Admitted From Admitted From:: [facility] ED - History Obtained From Records Reviewed: Yes History obtained from: Patient, chart and Dr. Leon Exam Limitations: None - History of Present Illness HPI Comment/Other: Dr. 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 History - Past Medical History Cardiovascular: reports: High cholesterol Respiratory: reports: Pneumonia, Sleep apnea, CPAP use Neuro: reports: Migraines, Peripheral neuropathy Endocrine/Autoimmune: reports: HyPOthyroidism GI: reports: GERD TIMBER APPRAISER: reports: Other (Endometrial cancer with metastasis) : reports: None HEENT: reports: Other Psych: reports: Depression, Anxiety, Panic attacks, Post traumatic stress disorder, Claustrophobia Musculoskeletal: reports: Osteoarthritis, Fibromyalgia, Fatigue, Chronic back pain Derm: reports: Other drug resistant infections, Eczema MRSA Hx?: Yes - Past Surgical History /TIMBER APPRAISER: reports: Hysterectomy - Family & Social History Family History: Mother: , Alcoholism, CAD, Father: , Alcoholism, CAD, Brother: Alcoholism Living arrangement: At home Living Situation: With spouse/s.o. Social History Notes: Patient lives in [place] with her whom she has been to for 22 years. Her has had some type of brain injury and has difficulty processing and retaining information therefore they require caregiver support at home. The patient has 3 children one daughter who lives in [place] and is at bedside and seems to be very involved in her mother's care. She also has 1 daughter who is estranged and a son who lives in [place]. The patient previously lived in [place] and moved to [facility] about 8 years ago. She did smoke for 16 years up to a pack a day but quit when she was 35 years old. She denies any alcohol use and she did try to use CBD for pain but did not tolerate it and does not use any illicit drugs. - POLST Patient has POLST: No POLST Status: Full Code Meds/Allgy - Home Medications Home Medications: Ambulatory Orders Medication Instructions Recorded Confirmed Indomethacin 50 mg PO DAILY PRN 04/12/16 06/15/18 Levothyroxine [Synthroid] 100 mcg PO QDAC 04/12/16 06/15/18 Topiramate 300 mg PO QPM 04/12/16 06/16/18 Omeprazole 20 mg PO DAILY 08/17/16 06/16/18 clonazePAM [Klonopin] 1 mg PO BID PRN 08/17/16 06/15/18 LORazepam [Lorazepam] 0.5 mg PO Q6H PRN 09/07/16 06/15/18 QUEtiapine [SEROquel] 100 tab ORAL QPM 05/09/18 06/15/18 Multivit-Minerals/Ferrous Gluc 15 ml PO DAILY 05/12/18 06/15/18 [Multi-Christi Liquid] Prochlorperazine Maleate 10 mg PO Q6H PRN #30 tablet 05/12/18 06/15/18 [Compazine] Mouthwash Compounding Base 227 10 ml PO Q6HR 05/30/18 06/16/18 [Mouthwash-Om] Ondansetron Odt [Zofran] 4 mg TL Q6H PRN #10 tablet 06/14/18 06/15/18 Promethazine Supp [Phenergan Supp] 25 mg WI Q6H PRN #10 supp 06/14/18 06/15/18 Promethazine [Phenergan] 25 mg PO Q6H PRN #10 tab 06/14/18 06/15/18 Albuterol Sulf [Ventolin Hfa 2 puffs INH Q4HR PRN 06/15/18 06/15/18 Inhaler] Atorvastatin Calcium 20 mg PO QPM 06/15/18 06/15/18 Buspirone HCl 10 mg PO TID 06/15/18 06/15/18 Sumatriptan Succinate [Imitrex] 100 mg PO DAILY PRN 06/15/18 06/16/18 Cholecalciferol (Vitamin D3) 5,000 unit PO DAILY 06/16/18 06/16/18 [Vitamin D3] - Allergies Allergies/Adverse Reactions: Allergies Allergy/AdvReac Type Severity Reaction Status Date / Time mold Allergy Unknown Verified 06/14/18 10:08 Conclusion/Plan - Lab Results Lab results reviewed: Yes Fish Bones: 06/17/18 06:30 06/17/18 06:30
--- NOTE | 2018-06-17 10:29 | CT Report ---
Reason: worse abd pain in sbo w uterine ca Procedure Date: 06/17/2018 Accession Number: [id number] / [id number] Procedure: CT - Abdomen/Pelvis W/O CPT Code: FULL RESULT: EXAM: CT ABDOMEN AND PELVIS EXAM DATE: 06/17/2018 08:54 AM. CLINICAL HISTORY: 73-year-old with history of uterine cancer. Worsening abdominal pain. COMPARISONS: CT of the abdomen and pelvis from 06/15/2018. TECHNIQUE: Routine helical CT imaging was performed through the abdomen and pelvis. IV contrast: None. Enteric contrast: No. Reconstructions: Coronal and sagittal. In accordance with CT protocol optimization, one or more of the following dose reduction techniques were utilized for this exam: automated exposure control, adjustment of mA and/or KV based on patient size, or use of iterative reconstructive technique. FINDINGS: Lung Bases: Linear bibasilar opacity, most compatible with atelectasis. Liver: Redemonstration of peripheral calcifications and hypoattenuating focus in the right hepatic lobe, not significantly changed. Gallbladder/Bile Ducts: Gallbladder is distended. No gallstones or pericholecystic stranding demonstrated. Common bile duct measures 9 mm, which is mildly dilated but similar to prior examinations. Spleen: Within normal limits. Pancreas: Unremarkable. Adrenal Glands: No nodules. Kidneys: The cyst arises from the lower pole of the left kidney (series 3, image 38). The kidneys are otherwise unremarkable. Peritoneal Cavity/Bowel: There is hiatal hernia with fluid-filled distention of the distal esophagus and herniated stomach. There is persistent small bowel dilation throughout the abdomen with small bowel measuring up to 4.5 cm (series 5, image 13). There is increased dilation of distal small bowel in the pelvis (series 3, image 72). There appears to be a relatively abrupt transition point in the right pelvis (series 3, image 66), which is near a collection of fluid and gas adjacent to the right external iliac vessels (series 3, image 68). The precise size of this collection is better assessed on recent prior contrast-enhanced CT. The segment of bowel previously demonstrating pneumatosis is no longer identified. No pneumoperitoneum is demonstrated. The distal ileum is decompressed. Colon is also decompressed. There is diverticulosis of the sigmoid colon. Pelvic Organs: Urinary bladder is not distended. Uterus is surgically absent. Right pelvic fluid and gas collection, as described above. Vasculature: No abdominal aortic aneurysm. Bones: There is levoscoliosis of the lumbar spine. Sclerotic lesion at T10 has not significantly changed. Other: No retroperitoneal adenopathy. There is redemonstration of 5.8 x 2.5 cm low-attenuation structure in the left anterolateral abdominal wall. Small nodular component is demonstrated inferiorly (series 3, image 47). IMPRESSION: 1. Findings of ongoing small bowel obstruction with increased small bowel dilation. Transition occurs in the right pelvis, near a collection of fluid and gas, which was better seen on prior contrast-enhanced CT. 2. As seen previously, there is hiatal hernia with fluid-filled distention of the esophagus and herniated stomach. This could place the patient at risk for aspiration. 3. As described on the prior examination, collection of fluid and gas adjacent to the right external iliac vessels is new from previous CT of 02/21/2018. The presence of gas in this collection could represent sequela of infection or potentially fistulization with adjacent small bowel. 4. No significant change in partially solid, partially cystic structure in the left anterolateral abdominal wall, presumably metastasis. 5. No significant change in hypoattenuating and calcified structures in the periphery of the liver, which could also represent metastases. 6. No significant change in T10 sclerotic lesion, which may also represent metastasis. Findings were discussed with Dr. Leon by Dr. Lambert at approximately 10:27 AM on 06/17/2018. RADIA
[2018-06-17] MEDS: SODIUM CHLORIDE FLUSH 0.9% 10 ML SYRINGE IVP SCH (11:35)
--- NOTE | 2018-06-17 12:30 | DISCHARGE SUMMARY ---
"Discharge Summary Admit Date: 06/15/18 Discharge Date: 06/17/18 Discharging Provider: Karla Leon MD Primary Care Provider: Josh Perkins MD Code Status: Attempt Resuscitation Condition at Discharge: Good Discharge Disposition: 02 Transfer Acute Care Hosp Discharge Facility Name: [facility] - DIAGNOSES Discharge Diagnoses with Status of Each Condition: (1) Small bowel obstruction, partial (2) Right leg DVT (3) Oral mucositis (4) Stage IV adenocarcinoma of endometrium (5) Hypokalemia. (6) Hypothyroidism (7) Depression (8) MILO on CPAP (9) Chronic migraine (10) Hiatal Hernia with dilation of esophagus - HPI History of Present Illness: Patient is a 73-year-old female with a past medical history significant for metastatic endometrial serous adenocarcinoma status post complete hyste[place] [address] Willard, adjuvant chemotherapy with carboplatin/Taxol for 6 cycles until January 2017 and adjuvant brachytherapy x5 with recurrence of disease earlier this year on pelvic exam which showed a mass in the vaginal cuff, biopsy showing high-grade serous endometrial adenocarcinoma, poorly differentiated. Patient underwent a PET scan on April 11, 2018 which showed hypermetabolic lesions at the vaginal cuff, right adnexa/pelvic sidewall and the left abdominal wall, consistent with metastasis. Patient has since been started on Doxil and Avastin on 05/17/2018 and received 1 cycle. She was to receive a second cycle 06/14/18 but that was cancelled. The patient also has past medical history of recent oral mucositis, peripheral neuropathy, fibromyalgia, chronic fatigue, hypothyroidism, hyperlipidemia, chronic migraines, eczema, depression, anxiety, GERD and obstructive sleep apnea on CPAP. She presented to the emergency department today with a chief complaint of nausea and vomiting. The patient states that she has been having symptoms for a couple of months now. She states that she has been having right lower quadrant abdominal pain and nausea and vomiting. She states that the symptoms of been off and on but they all of a sudden became much worse over the last week. She states over the last week she has been unable to keep anything down. She states that she feels nauseated and vomits anytime she tries to eat or drink anything. She also states that the right lower quadrant abdominal pain that she was having has now moved up to the epigastric area and is radiating across her entire upper abdomen. She states that this pain is become increasingly worse over the last 2 days. She also states that she has begun to have distention of her upper abdomen. She states that she came into the emergency department yesterday and was given Zofran and Phenergan. She was tolerating p.o. intake well before she left the ER. She states that since this morning she has begun having nausea and been vomiting throughout the day. She states that she tried to take Phenergan at home but was unable to keep anything down. She also stated that her abdominal pain was becoming worse and she decided to come back to the emergency department. The patient denies any fevers or chills. She does admit to increasing acid reflux. She otherwise denies any chest pain or shortness of breath. She states that she last had a bowel movement a few days ago. She also admits to a headache but states that she has chronic migraines. She also admits to having had right leg swelling which has since resolved. Patient denies any word vision, runny nose, sore throat, nasal congestion, difficulty swallowing, orthopnea, PND, diarrhea, urinary urgency, urinary frequency, dysuria, joint swelling, joint pain, back pain, neck stiffness, hair loss, skin changes, polyuria, polydipsia, night sweats or any focal neurologic deficits. On presentation to the emergency department the patient was afebrile and slightly tachycardic with a heart rate of 99. Her blood pressure was normal and she was not in any respiratory distress. The patient underwent routine lab work which did show a potassium of 2.8 and a chloride of 94 her electrolytes were ot herwise within normal limits. The patient had no elevation in her white blood cell count and had a normal CBC. The patient did undergo a CT of her abdomen and pelvis which showed findings compatible with a small bowel obstruction. The radiologist determined that the obstruction may be secondary to combined mechanical and functional etiologies as the bowel tapers distally with relative transition point in the right abdomen, where there is a short segment of pneumatosis intestinalis and multifocal bowel wall thickening. It was felt that this could be secondary to treatment effect from chemotherapy and/or radiation or serosal metastatic disease. There is also finding of a small fluid colle ction and gas in the right pelvis which was concerning for possibility of fistulization of the adjacent bowel. The patient was also found to have a right external iliac vein which appeared compressed by the right pelvic fluid and gas collection with concern for possible DVT in the right common femoral vein. The patient did undergo a Doppler ultrasound of her right lower extremity which showed a nonocclusive DVT extending from the proximal femoral vein up to the right external iliac. The patient was admitted to the medical medel for medical management of a small bowel obstruction. - CONSULTS | PROCEDURES Consultations: General Surgery, Dr. Ludwig Alcaraz Procedures: 1. CT of the abdomen and pelvis x2. Necrotic tumor mass, previous disease described with a new small bowel obstruction. Pneumatosis was present on the first CT. On the second CAT scan pneumatosis is resolved, but small bowel dilation is slightly worse. Same distended esophagus from her hiatal hernia and air-fluid levels in the stomach. 2. Venous duplex study shows nonocclusive DVT extending from the proximal femoral vein and profunda femoris vein up to the right external iliac vein. 3. abdomen x-ray shows persistently dilated stacked loops of small bowel with differential air-fluid levels. - HOSPITAL COURSE Hospital Course: (1) Small bowel obstruction Impression: Patient presented with abdominal pain, nausea and vomiting which has been getting worse over the last week. She has a history of endometrial cancer with metastasis and has been undergoing chemotherapy after her recurrence of disease earlier this year. Her last chemotherapy treatment was 05/17/18. Admission CT of the patient's abdomen was consistent with small bowel obstruction which was felt to be secondary to combined mechanical and functional etiologies. The patient's bowel appeared to be tapering distally with relative transition point in the right abdomen, where there is a short segment of pneumatosis intestinalis and multifocal bowel wall thickening. The findings could be secondary to treatment effect or serosal metastatic disease. By the second day of admission she had had a formed stool followed by 2 loose stools and was advanced on her diet with clear liquids. Of note, she has a large hiatal hernia with stomach in her chest and air-fluid levels in her chest because of this. So part of her nausea and vomiting may be due to the hiatal hernia as well as a small bowel obstruction. The patient pulled out her NG tube and was very firm on stating she could not have it put back in again. General surgery did a consult on the patient. He was clear that her disease is very difficult to manage from a surgical perspective. And there was no guarantee that she would not return with further bowel obstructions even if he did operate on her. He does not feel that she is an appropriate surgical candidate for a [facility] with limited specialty availability. On the third day of admission we repeated the CAT scan. Where her pneumatosis has improved, her small bowel dilation is slightly worse. Her hiatal hernia with esophageal dilation is also slightly worse. She continues to refuse an NG tube right now. I did point-blank asked her if she wanted us to make her comfortable, focus on pain management, nausea management or did she want to proceed with more aggressive treatment. She says that she would like to proceed with surgery if it was offered to her. As such, I contacted [facility]. She is a [facility] patient. [facility] has authorized transfer. She has been accepted by Dr. David Harley. The patient is transferred in stable condition. She is normotensive, oxygenating normally on room air, afebrile. (2) Right leg DVT Conclusion/Plan: The patient has a nonocclusive DVT extending from the proximal femoral vein and profunda femoris vein up to the right external iliac vein. The patient had risk factor of metastatic cancer.She is treated with Lovenox 1 mg/kg subcu twice daily. Because this is an active solid organ cancer diagnosis, she will most likely stay on Lovenox. (3) Oral mucositis Conclusion/Plan: Patient has oral mucositis secondary to ongoing chemotherapy. Patient has been taking Magic mouthwash at home and responded well to treatment. We continued Magic mouthwash while the patient was hospitalized. (4) Stage IV adenocarcinoma of endometrium Conclusion/Plan: The patient has metastatic adenocarcinoma of the endometrium. She had metastasis to the vaginal cuff as well as the right adnexa/pelvic sidewall and the left abdominal wall. This was a recurrence of her disease after she underwent hysterectomy and adjuvant chemotherapy in 2016. Given metastatic disease, the patient has a poor prognosis. The patient now presents with a small bowel obstruction which could be secondary to further metastasis or bowel perforation from the chemotherapy agent. The patient's best option if this bowel obstruction is secondary to metastatic disease may be palliative care or hospice. However, at this point, the patient is not ready to discuss this but she was told that this is something that may need to be discussed very soon in the future. According to [facility] clinical account manager forest service, she had Doxil and Bevacizumab. She had last done 05/17/18 and did not have 06/14/18 scheduled dose. Unclear why not. In any case, she cannot have any surgery for 4 weeks before or after Bevacizumab. (5) Hypokalemia Conclusion/Plan: On presentation the patient's potassium is low at 2.8. This is secondary to ongoing nausea and vomiting and poor oral intake. The patient received IV potassium replacement both with IV fluid and with potassium rider. We replaced the patient's potassium as needed. This am she is 3.7 (6) Hypothyroidism Conclusion/Plan: The patient has a history of hypothyroidism and is on levothyroxine 100 mcg at home. The patient was n.p.o. off and on and we will held the Synthroid. If the patient remained n.p.o. for several days, we were going to start IV levothyroxine. The patient's TSH is 4.38 so on the high end of normal. She may not be absorbing well. (7) Depression Conclusion/Plan: The patient has a history of depression and anxiety. Given that she was n.p.o., we will held her oral antidepressants. We placed the patient on Ativan IV as needed for anxiety. Currently the patient's mood appears to be stable. (8) MILO on CPAP Conclusion/Plan: The patient has a history of obstructive sleep apnea and uses CPAP at home. The patient did not bring her CPAP with her, however, the daughter was told to bring in her CPAP when she gets a chance. The patient was continued on her CPAP at night while she was hospitalized. (9) Chronic migraine Conclusion/Plan: The patient has a history of chronic migraines and had a migraine on presentation. The patient was placed on subcutaneous Imitrex as needed. (10) Hiatal Hernia with diilation of esophagus both CT's confirm that her stomach is in her chest. Part of her nausea and emesis could certainly be from that. She and her daughter did ask if that could be surgically fixed as well. I were not encouraging to that regard. She was on mylanta and PPI IV while here. - ALLERGIES Allergies/Adverse Reactions: Allergies Allergy/AdvReac Type Severity Reaction Status Date / Time mold Allergy Unknown Verified 06/14/18 10:08 - MEDICATIONS Home Medications: Ambulatory Orders Medication Instructions Recorded Confirmed Indomethacin 50 mg PO DAILY PRN 04/12/16 06/15/18 Levothyroxine [Synthroid] 100 mcg PO QDAC 04/12/16 06/15/18 Topiramate 300 mg PO QPM 04/12/16 06/16/18 Omeprazole 20 mg PO DAILY 08/17/16 06/16/18 clonazePAM [Klonopin] 1 mg PO BID PRN 08/17/16 06/15/18 LORazepam [Lorazepam] 0.5 mg PO Q6H PRN 09/07/16 06/15/18 QUEtiapine [SEROquel] 100 tab ORAL QPM 05/09/18 06/15/18 Multivit-Minerals/Ferrous Gluc 15 ml PO DAILY 05/12/18 06/15/18 [Multi-Christi Liquid] Prochlorperazine Maleate 10 mg PO Q6H PRN #30 tablet 05/12/18 06/15/18 [Compazine] Mouthwash Compounding Base 227 10 ml PO Q6HR 05/30/18 06/16/18 [Mouthwash-Om] Ondansetron Odt [Zofran] 4 mg TL Q6H PRN #10 tablet 06/14/18 06/15/18 Promethazine Supp [Phenergan Supp] 25 mg OR Q6H PRN #10 supp 06/14/18 06/15/18 Promethazine [Phenergan] 25 mg PO Q6H PRN #10 tab 06/14/18 06/15/18 Albuterol Sulf [Ventolin Hfa 2 puffs INH Q4HR PRN 06/15/18 06/15/18 Inhaler] Atorvastatin Calcium 20 mg PO QPM 06/15/18 06/15/18 Buspirone HCl 10 mg PO TID 06/15/18 06/15/18 Sumatriptan Succinate [Imitrex] 100 mg PO DAILY PRN 06/15/18 06/16/18 Cholecalciferol (Vitamin D3) 5,000 unit PO DAILY 06/16/18 06/16/18 [Vitamin D3] - PHYSICAL EXAM AT DISCHARGE General Appearance: positive: Alert, Moderate distress (From distended abdominal viscera and nausea and she complains bitterly of lack of sleep) Eyes Bilateral: positive: PERRL, EOMI ENT: positive: Other (Raw tongue and mucosa compatible with mucositis. No Agnes seen) Neck: positive: No JVD. negative: Lymphadenopathy (R), Lymphadenopathy (L), Stiff neck, Carotid bruit Respiratory: positive: Chest non-tender. negative: Wheezes, Rales, Rhonchi Cardiovascular: positive: Regular rate & rhythm. negative: Gallop/S4, Friction rub Peripheral Pulses: positive: 1+ Abdomen: positive: Other (Diffuse distention that is improved from admission but still present. Hypoactive bowel sounds. Diffuse generalized tenderness worse over the right lower quadrant.). negative: Guarding, Rebound Skin: positive: Warm, Dry Extremities: positive: Full ROM, Pedal edema (Trace around the ankles) Neurologic/Psychiatric: positive: Oriented x3, CN's nml (2-12), Motor nml, Depre ssed mood/affect - LABS Result Diagrams: 06/17/18 06:30 06/17/18 06:30 - TIME SPENT Time Spent in Discharge (Minutes): 40"
--- NOTE | 2018-06-17 16:33 | Discharge Plan ---
Discharge Plan Disposition: 02 Transfer Acute Care Hosp Condition: Good Instruction Topics: MRSA Culture, MRSA Infec No Smoking: If you smoke, Please STOP! Call for help. Follow-up with: Ibrahima Perkins MD [Primary Care Provider] -
== END 2018-06-17 14:00 | disposition short-term general hospital (02) | DRG 389 ==
LOC: ED 15:38 → MS2 18:46
PROVIDERS: ADMIT Internal Medicine; ATTEND Specialist
PROC: 0DH67UZ Insertion of Feeding Device into Stomach, Via Natural or Artificial Opening (ICD-10-PCS; principal; 2018-06-15)
DX: K56.609 Unspecified intestinal obstruction, unspecified as to partial versus complete obstruction (principal); C56.9 Malignant neoplasm of unspecified ovary; K56.600 Partial intestinal obstruction, unspecified as to cause; C79.9 Secondary malignant neoplasm of unspecified site; I82.411 Acute embolism and thrombosis of right femoral vein; C54.1 Malignant neoplasm of endometrium; E78.00 Pure hypercholesterolemia, unspecified; Z79.899 Other long term (current) drug therapy; F32.9 Major depressive disorder, single episode, unspecified; E87.6 Hypokalemia; K12.30 Oral mucositis (ulcerative), unspecified; K21.9 Gastro-esophageal reflux disease without esophagitis; K44.9 Diaphragmatic hernia without obstruction or gangrene; Z90.710 Acquired absence of both cervix and uterus; E03.9 Hypothyroidism, unspecified; E78.5 Hyperlipidemia, unspecified; G47.33 Obstructive sleep apnea (adult) (pediatric)
CPT/HCPCS: 36415; 74018; 74176; 74177; 80048; 80053; 83690; 84443; 85025; 87640; 96365; 96375; 99283; 99284

== ENCOUNTER 2018-06-17 14:05 | Outpatient (CLI) | payer MEDICARE, MEDICAID | END 2018-06-17 14:06 | disposition short-term general hospital (02) | LOC: EMS 14:05 | PROVIDERS: ATTEND Surgery | DX: K56.609 Unspecified intestinal obstruction, unspecified as to partial versus complete obstruction (principal) | CPT/HCPCS: A0425; A0428 ==

== ENCOUNTER 2018-08-07 19:46 | Outpatient (CLI) | payer MEDICARE, MEDICAID | END 2018-08-07 19:47 | disposition critical access hospital (66) | LOC: EMS 19:46 | PROVIDERS: ATTEND Surgery | DX: R46.4 Slowness and poor responsiveness (principal); R50.9 Fever, unspecified | CPT/HCPCS: A0425; A0427 ==

== ENCOUNTER 2018-08-07 20:16 | Emergency (ER) | payer MEDICARE, MEDICAID ==
[2018-08-07] MEDS ORDERED: SODIUM CHLORIDE 0.9% 1,000 ML IV ONE (20:30)
--- NOTE | 2018-08-07 20:32 | ED Physician Documentation ---
PD HPI ALTERED MENTAL STATUS - Stated complaint Stated Complaint: AMS - Chief complaint Chief Complaint: Neuro - History obtained from History obtained from: EMS - History of Present Illness Timing - onset: Enter time (6 PM (last known normal)) Quality / character: Less responsive Associated symptoms: Fever Contributing factors: Cancer Basline status: Alert and oriented X 3, Ambulatory Recently seen: Not recently seen - Additional information Additional information: per medic report, patient's says patient's last known normal was 6 PM when she went to use bathroom. After what he thought was an abnormal amount of time in the bathroom, he checked on her and found that she was weak, confused. BIBA. Patient cannot contribute to HPI/ROS due to severe AMS Review of Systems Unable to obtain: AMS PD PAST MEDICAL HISTORY - Past Medical History Cardiovascular: High cholesterol Respiratory: Pneumonia, Sleep apnea, CPAP use Neuro: Migraines, Peripheral neuropathy Endocrine/Autoimmune: HyPOthyroidism GI: GERD ANIMAL HOSPITAL CLERK: Other (Endometrial cancer with metastasis) : None HEENT: Other Psych: Depression, Anxiety, Panic attacks, Post traumatic stress disorder, Claustrophobia Musculoskeletal: Osteoarthritis, Fibromyalgia, Fatigue, Chronic back pain Derm: Other drug resistant infections, Eczema - Past Surgical History Past Surgical History: No /ANIMAL HOSPITAL CLERK: Hysterectomy - Present Medications Home Medications: Ambulatory Orders Medication Instructions Recorded Confirmed Indomethacin 50 mg PO DAILY PRN 04/12/16 07/06/18 Levothyroxine [Synthroid] 100 mcg PO QDAC 04/12/16 07/06/18 Topiramate 300 mg PO QPM 04/12/16 07/06/18 Omeprazole 20 mg PO DAILY 08/17/16 07/06/18 clonazePAM [Klonopin] 1 mg PO BID PRN 08/17/16 07/06/18 LORazepam [Lorazepam] 0.5 mg PO Q6H PRN 09/07/16 07/06/18 QUEtiapine [SEROquel] 100 tab ORAL QPM 05/09/18 07/06/18 Multivit-Minerals/Ferrous Gluc 15 ml PO DAILY 05/12/18 07/06/18 [Multi-Christi Liquid] Prochlorperazine Maleate 10 mg PO Q6H PRN #30 tablet 05/12/18 06/15/18 [Compazine] Mouthwash Compounding Base 227 10 ml PO Q6HR 05/30/18 07/06/18 [Mouthwash-Om] Ondansetron Odt [Zofran] 4 mg TL Q6H PRN #10 tablet 06/14/18 07/06/18 Promethazine Supp [Phenergan Supp] 25 mg IA Q6H PRN #10 supp 06/14/18 07/06/18 Promethazine [Phenergan] 25 mg PO Q6H PRN #10 tab 06/14/18 07/06/18 Albuterol Sulf [Ventolin Hfa 2 puffs INH Q4HR PRN 06/15/18 07/06/18 Inhaler] Atorvastatin Calcium 20 mg PO QPM 06/15/18 07/06/18 Buspirone HCl 10 mg PO TID 06/15/18 07/06/18 Sumatriptan Succinate [Imitrex] 100 mg PO DAILY PRN 06/15/18 07/06/18 Cholecalciferol (Vitamin D3) 5,000 unit PO DAILY 06/16/18 07/06/18 [Vitamin D3] Morphine ER 1 tab ORAL BID 07/06/18 07/06/18 Potassium Chloride [K-Dur] 20 meq PO BID MDD x 4 weeks, 07/26/18 07/26/18 started 07/27/18 - Allergies Allergies/Adverse Reactions: Allergies Allergy/AdvReac Type Severity Reaction Status Date / Time mold Allergy Unknown Verified 06/14/18 10:08 - Social History Does the pt smoke?: No Smoking Status: Former smoker Does the pt drink ETOH?: No Does the pt have substance abuse?: No - Immunizations Immunizations are current?: Yes - POLST Patient has POLST: No POLST Status: Full Code PD ED PE NORMAL - Vitals Vital signs reviewed: Yes - General General: No acute distress, Well developed/nourished, Other (awake, follows almost no commands (tracks my finger with gaze briefly), only verbalizes once (says her first name when I asked repeatedly)) - HEENT HEENT: Atraumatic, PERRL, EOMI, Other (tacky/pasty mucous membranes) - Cardiac Cardiac: No murmur - Respiratory Respiratory: No respiratory distress, Clear bilaterally - Abdomen Abdomen: Soft, Non distended - Derm Derm: Normal color, Warm and dry - Neuro Eye Opening: Spontaneous Motor: Localizes to Pain Verbal: Confused GCS Score: 13 PD ED PE EXPANDED - Cardiac Cardiac: Tachy Results - Vitals Vitals: Vital Signs - 24 hr 08/07/18 08/07/18 08/07/18 21:00 21:30 22:00 Temperature Heart Rate 95 95 92 Respiratory 17 15 14 Rate Blood Pressure 92/56 L 106/56 L 88/39 L O2 Saturation 96 95 96 08/07/18 08/07/18 08/07/18 22:30 23:00 23:55 Temperature 37.6 C H Heart Rate 96 87 86 Respiratory 12 13 12 Rate Blood Pressure 84/60 L 84/66 L 81/50 L O2 Saturation 96 96 97 08/08/18 08/08/18 08/08/18 01:00 02:00 03:00 Temperature 37.0 C Heart Rate 83 75 72 Respiratory 11 L 12 11 L Rate Blood Pressure 87/51 L 87/58 L 89/51 L O2 Saturation 96 99 99 08/08/18 08/08/18 08/08/18 04:31 05:14 06:00 Temperature Heart Rate 79 78 82 Respiratory 12 15 16 Rate Blood Pressure 94/57 L 101/53 L 94/56 L O2 Saturation 100 100 96 08/08/18 08/08/18 08/08/18 07:01 07:35 07:45 Temperature 37 C Heart Rate 86 86 Respiratory 17 16 Rate Blood Pressure 97/59 L 95/48 L 97/56 L O2 Saturation 96 08/08/18 08/08/18 08/08/18 08:00 08:15 08:34 Temperature Heart Rate 84 85 83 Respiratory 16 16 16 Rate Blood Pressure 129/67 128/75 105/38 L O2 Saturation 95 99 99 08/08/18 08/08/18 08/08/18 08:37 08:45 09:00 Temperature Heart Rate 86 83 85 Respiratory 16 16 Rate Blood Pressure 103/59 L 105/60 106/60 O2 Saturation 98 99 Oxygen O2 Source Nasal cannula - EKG (time done) No standard instances Rate: Rate (enter#) (101) Rhythm: Sinus tachycardia [place]: LAD Intervals: Wide QRS Ischemia: Normal ST segments Compare to prior EKG: Unchanged from prior EKG (no significant change compared to 04/12/16) - Labs Labs: Laboratory Tests 08/07/18 08/07/18 08/07/18 21:22 21:22 21:22 WBC 8.7 RBC 3.87 L Hgb 11.6 L Hct 36.0 L MCV 93.0 MCH 29.9 MCHC 32.1 RDW 19.8 H Plt Count 204 MPV 7.6 L Neut # (Auto) 5.8 Lymph # (Auto) 1.0 L [place] # (Auto) 1.8 H Eos # (Auto) 0.0 Baso # (Auto) 0.1 Absolute Nucleated RBC 0.00 Nucleated RBC % 0.0 PT 23.6 H INR 2.1 H APTT 35.8 H Sodium 131 L Potassium 4.3 Chloride 106 Carbon Dioxide 19 L Anion Gap 6.0 BUN 23 H Creatinine 1.0 Estimated GFR (MDRD) 55 L Glucose 109 H Lactic Acid Calcium 8.1 L Total Bilirubin 0.5 AST 28 ALT 14 Alkaline Phosphatase 117 Total Protein 6.0 L Albumin 2.8 L Globulin 3.2 Albumin/Globulin Ratio 0.9 L Lipase 19 L Urine Color Urine Clarity Urine pH Ur Specific [place] Urine Protein Urine Glucose (UA) Urine Ketones Urine Occult Blood Urine Nitrite Urine Bilirubin Urine Urobilinogen Ur Leukocyte Esterase Urine RBC Urine WBC Ur Squamous Epith Cells Urine Bacteria Urine Casts Urine Mucus Ur Microscopic Review Urine Culture Comments 08/07/18 08/07/18 21:22 22:11 WBC RBC Hgb Hct MCV MCH MCHC RDW Plt Count MPV Neut # (Auto) Lymph # (Auto) [place] # (Auto) Eos # (Auto) Baso # (Auto) Absolute Nucleated RBC Nucleated RBC % PT INR APTT Sodium Potassium Chloride Carbon Dioxide Anion Gap BUN Creatinine Estimated GFR (MDRD) Glucose Lactic Acid 1.1 Calcium Total Bilirubin AST ALT Alkaline Phosphatase Total Protein Albumin Globulin Albumin/Globulin Ratio Lipase Urine Color YELLOW Urine Clarity CLEAR Urine pH 6.0 Ur Specific [place] 1.020 Urine Protein 30 H Urine Glucose (UA) NEGATIVE Urine Ketones TRACE Urine Occult Blood SMALL H Urine Nitrite NEGATIVE Urine Bilirubin NEGATIVE Urine Urobilinogen 2 H Ur Leukocyte Esterase NEGATIVE Urine RBC 6-10 H Urine WBC 0-3 Ur Squamous Epith Cells RARE Squamous Urine Bacteria None Seen Urine Casts 11-25 Hyaline Casts Urine Mucus Moderate Strands Ur Microscopic Review INDICATED Urine Culture Comments NOT INDICATED - Rads (name of study) chest xray Radiology: Prelim report reviewed, See rad report CT head Radiology: Prelim report reviewed, See rad report PD MEDICAL DECISION MAKING - ED course Complexity details: reviewed results, re-evaluated patient, considered differential ED course: After 3 liters IV NS, patient's blood pressure remained in hypotensive range (80s SBP, although MAP 70). Her mental status slightly improved, speaks some words although difficult to understand. I d/w patient's daughter regarding patient's wishes regarding treatment; patient's daughter tells me that patient has said she didn't want to be on "life support", but after further discussion, daughter says "she just doesn't want to be brain " or "end up a vegetable", but that the mother (patient) had very recently said she wanted to "fight this cancer" and that, as medics were getting patient into the ambulance, the patient's spouse said to the daughter that he did not want any treatment withheld. No evident source of febrile illness on initial testing. I attempted an LP but after three attempts, I was unable to obtain any CSF. No ICU beds available at [facility]. D/W Dr. Fritz at [place], will look into available beds at [facility]. D/W Dr. Farrell, accepts transfer to [facility] Departure - Departure Disposition: 02 Transfer Acute Care Hosp Clinical Impression: Altered mental status Qualifiers: Altered mental status type: unspecified Qualified Code(s): R41.82 - Altered mental status, unspecified Sepsis Qualifiers: Sepsis type: sepsis due to unspecified organism Qualified Code(s): A41.9 - Sepsis, unspecified organism Condition: Stable Discharge Date/Time: 08/08/18 09:20
[2018-08-07] MEDS ORDERED: ACETAMINOPHEN 1,000 MG/100 ML 100 ML IV STA (20:43)
--- NOTE | 2018-08-07 21:19 | XRAY Report ---
Reason: fever Procedure Date: 08/07/2018 Accession Number: [id number] / [id number] Procedure: XR - Chest 1 View X-Ray CPT Code: 64904 FULL RESULT: EXAM: CHEST RADIOGRAPHY. EXAM DATE: 08/07/2018 08:53 PM. CLINICAL HISTORY: Chemotherapy patient with altered mental status and fever today. COMPARISON: Chest with 02/21/2018 12:19 PM. TECHNIQUE: 1 view. FINDINGS: Lungs/Pleura: Interval development of mild bilateral perihilar interstitial prominence. New small airspace opacities left medial lung base. Normal lung volumes. No effusion or pneumothorax. Mediastinum: New borderline cardiomegaly. Air is seen within the borderline distended esophagus. Moderate hiatal hernia. Other: None. IMPRESSION: 1. Borderline cardiomegaly. 2. Mild bilateral perihilar interstitial infiltrates consistent with early interstitial edema or airway disease. 3. Moderate hiatal hernia. 4. Air in the borderline dilated thoracic esophagus. (Oral contrast was seen throughout the normal caliber thoracic esophagus on the 02/21/[address] indicating reflux.) 5. Segmental consolidation/atelectasis left medial lung base. RADIA
[2018-08-07 21:30] LABS: BASOPHILS # (AUTO) 0.1 10^3/uL (0.0-0.1); BASOPHILS % (AUTO) 0.8 %; EOSINOPHILS % (AUTO) 0.1 %; HGB - HEMOGLOBIN 11.6 g/dL (12.0-16.0); LYMPHOCYTES % (AUTO) 11.8 %; MEAN CORPUSCULAR HEMOGLOBIN 29.9 pg (27.0-31.0); MEAN CORPUSCULAR HGB CONC 32.1 g/dL (32.0-36.0); MEAN PLATELET VOLUME 7.6 fL (7.9-10.8); MONOCYTES # (AUTO) 1.8 10^3/uL (0.0-1.0); MONOCYTES % (AUTO) 21.1 %; NEUTROPHILS # (AUTO) 5.8 10^3/uL (1.5-6.6); NEUTROPHILS % (AUTO) 66.2 %; PLT - PLATELET COUNT 204 10^3/uL (130-450); RED BLOOD COUNT 3.87 10^6/uL (4.20-5.40); RED CELL DISTRIBUTION WIDTH 19.8 % (12.0-15.0); WHITE BLOOD COUNT 8.7 x10^3/uL (4.8-10.8)
[2018-08-07 21:33] LABS: INR 2.1 (0.8-1.2); PT - PROTHROMBIN TIME 23.6 secs (9.9-12.6)
[2018-08-07 21:43] LABS: ALBUMIN 2.8 g/dL (3.2-5.5); ALBUMIN/GLOBULIN RATIO 0.9 (1.0-2.2); BILIRUBIN,TOTAL 0.5 mg/dL (0.2-1.0); CALCIUM 8.1 mg/dL (8.5-10.3)
--- NOTE | 2018-08-07 21:45 | CT Report ---
Reason: AMS Procedure Date: 08/07/2018 Accession Number: [id number] / [id number] Procedure: CT - Head W/O CPT Code: FULL RESULT: EXAM: CT HEAD EXAM DATE: 08/07/2018 09:31 PM. CLINICAL HISTORY: Altered mental status. Found down. COMPARISON: None. TECHNIQUE: Multiaxial CT images were obtained from the foramen magnum to the vertex. Reformats: Sagittal and coronal. IV contrast: None. In accordance with CT protocol optimization, one or more of the following dose reduction techniques were utilized for this exam: automated exposure control, adjustment of mA and/or KV based on patient size, or use of iterative reconstructive technique. FINDINGS: Parenchyma: No intraparenchymal hemorrhage. No evidence of mass, midline shift, or CT findings of infarction. Botello-white differentiation is distinct. Extraaxial Spaces: Normal for age. No subdural or epidural collections identified. Ventricles: Normal in size and position. Sinuses and Orbits: Imaged paranasal sinuses, orbits, and mastoids show no significant abnormality. Bones: No evidence of fracture or calvarial defect. Other: None. IMPRESSION: Normal head CT. RADIA
[2018-08-07] MEDS ORDERED: VANCOMYCIN INJ 1 GM in SODIUM CHLORIDE 0.9% 500 ML IV STA (22:14)
[2018-08-07] MEDS ORDERED: PIPERACILLIN/TAZOBACTAM 3.375 GM in SODIUM CHLORIDE 0.9% MINIBAG 100 ML IV STA (22:15)
[2018-08-07] MEDS ORDERED: SODIUM CHLORIDE 0.9% 1,000 ML IV STA (22:15)
[2018-08-07 22:20] LABS: BILIRUBIN,URINE NEGATIVE (NEGATIVE); GLUCOSE, URINE (UA) NEGATIVE (NEGATIVE); KETONES,URINE (UA) TRACE mg/dL (NEGATIVE); LEUKOCYTE ESTERASE, URINE NEGATIVE (NEGATIVE); NITRITE,URINE NEGATIVE (NEGATIVE); OCCULT BLOOD,URINE SMALL (NEGATIVE); PROTEIN,URINE 30 mg/dL (NEGATIVE); UROBILINOGEN,URINE 2 E.U./dL (NORMAL)
[2018-08-07 22:25] LABS: CLARITY,URINE CLEAR (CLEAR)
[2018-08-07 22:31] LABS: BACTERIA,URINE None Seen /HPF (None Seen); CASTS, URINE 11-25 Hyaline Casts /LPF; MUCUS,URINE Moderate Strands; SQUAMOUS EPITHELIAL CELL,UR RARE Squamous (<= Few)
[2018-08-08] MEDS ORDERED: LIDOCAINE 1% 2 ML VIAL SUBQ STA (00:29)
[2018-08-08] MEDS ORDERED: SODIUM CHLORIDE 0.9% 1,000 ML IV ONE (01:26)
[2018-08-08] MEDS ORDERED: SODIUM CHLORIDE 0.9% 1,000 ML IV STA (06:34)
[2018-08-08 09:34] VITALS: BP 106/60
== END 2018-08-08 09:20 | disposition short-term general hospital (02) ==
LOC: EDUNIT# → ED 20:16
DX: R41.82 Altered mental status, unspecified (principal); A41.9 Sepsis, unspecified organism; I95.9 Hypotension, unspecified; R00.0 Tachycardia, unspecified; Z85.89 Personal history of malignant neoplasm of other organs and systems; C79.9 Secondary malignant neoplasm of unspecified site; Z90.710 Acquired absence of both cervix and uterus; Z87.891 Personal history of nicotine dependence; E78.00 Pure hypercholesterolemia, unspecified
CPT/HCPCS: 36415; 51701; 51702; 62270; 70450; 71045; 80053; 81001; 83605; 83690; 85025; 85610; 85730; 87040; 96361; 96365; 96366; 96368; 99284; 99285; J0131; J3370; 81003; 87086; 93005

== ENCOUNTER 2018-09-28 11:00 | Outpatient (CLI) | payer MEDICARE, MEDICAID | END 2018-09-28 11:01 | disposition home or self-care (01) | LOC: LAB.R 11:00 | PROVIDERS: ATTEND Internal Medicine | DX: N30.00 Acute cystitis without hematuria (principal) | CPT/HCPCS: 87077; 87086; 87181 ==

== ENCOUNTER 2018-11-11 19:42 | Outpatient (CLI) | payer MEDICARE, MEDICAID | END 2018-11-11 19:43 | disposition short-term general hospital (02) | LOC: EMS 19:42 | PROVIDERS: ATTEND Surgery | DX: R41.82 Altered mental status, unspecified (principal) | CPT/HCPCS: A0425; A0427 ==

== ENCOUNTER 2018-12-04 12:00 | Outpatient (CLI) | payer MEDICARE, MEDICAID ==
--- NOTE | 2018-12-04 20:22 | CONSULTATION NOTE ---
Palliative Care Follow Up - Referral Referring Provider: Dr. Ibrahima Perkins Time of Visit: [id number] Referral setting: Home Referral Reason: Metastatic/recurrent endometiral serious adenocarcinoma - Information Sources Records reviewed: RN notes reviewed, Previous records reviewed History/Review of Systems obtained from: Patient Exam limitations: No limitations - History of Present Illness Update Brief HPI Update: This is a 73-year-old woman with recent hospitalization at [facility] 11/11/2018 and discharge 11/20/2018. She was admitted for right leg cellulitis and UTI with sepsis, she had leukopenia on admit due to chemotherapy. Patient is being treated for metastatic/recurrent endometrial serous adenocarcinoma, her history included a complete hysterectomy in early 2016, followed by adjuvant chemotherapy with carbo/Taxol until 01/2017 followed by adjuvant brachytherapy. She was then started on Doxil with Avastin in early May 2018 for recurrence involving the vaginal cuff, pelvic sidewall, and left abdominal wall. She was diagnosed with a DVT in June 2018, and since that time is been on Eliquis. She has had multiple hospitalizations for small bowel obstructions and infections, has peripheral neuropathy, and has done very poorly as far as side effects with her Doxil, though has completed her 6 cycles. Her understanding of her treatment plan and she is to continue with Avastin every 3 weeks. Her other underlying health problems include long-standing auto immune dysfunction included but not limited to chronic fatigue syndrome, fibromyalgia, chronic migraines, eczema, and ongoing treatment for depression and anxiety. She has been debilitated from her fibromyalgia and chronic fatigue syndrome for several years. She also has known sleep apnea, with her current machine not functional. I have been asked to see the patient secondary to her severe right leg pain, this is attributed to both swelling from her DVT, residual from acute cellulitis, as well as suspected possible lymphedema. Though she has ordered on discharge [place], she does not have a prescription, and her PCP was not willing to prescribe. Unfortunately with her Eliquis she has been using ibuprofen 400- 600 mg up to four times a day, this does put her at risk for increased bleeding. She has been unable to weight-bear on that leg without severe pain, she needs to ambulate short distance of 15-20 feet to the bathroom, and this is so severe she does not perceive herself as being able to get out at this point in time. Thus the urgent palliative care consult to address her pain management issues, and also define goals of care. On examination, leg and calf are quite tender to touch, cellulitis scarring, scabbed area back of the knee, redness is fading. Calf is quite tender though no localized areas of redness or erythema. Pain can be elicited with movement pressure or manipulation of the right leg. Patient reports was controlled on hydrocodone 10/325 mg to every 4 hours [id number] in the hospital, has not been controlled at home. Reports it is bearable at rest. Patient has been on oxycodone prior with previous hospitalizations, has tolerated without any side effects. Discussed in the context of acetaminophen limitations of hydrocodone, will look at titration of oxycodone. Patient at this point in time is unable leave the house, thus unable to follow-up with chemotherapy. Patient has been weighing benefits and burdens of further treatment, initiated goals of care conversation. Social History - Living Situation Living arrangement: At home Living Situation: With spouse/s.o. Support System: Patient lives with her who has a TBI, is very anxious and easily overwhelmed. He has been her caregiver for several years, this last couple years with her cancer diagnosis have been very anxiety producing for him. They do have a [place] [employer] worker, Bee, who is provided ongoing support for over 5 years. Is quite familiar with patient and her situation. She has 3-4 hours daily to provide support. Patient also has a daughter nearby, who stops in and checks on her frequently, and provided support. He has been initiated on home health care, does have visiting nurse weekly as well. 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 Medications/Allergies - Medications Home Medications: Ambulatory Orders Medication Instructions Recorded Confirmed Levothyroxine [Synthroid] 100 mcg PO QDAC 04/12/16 12/05/18 Topiramate 300 mg PO QPM 04/12/16 12/05/18 Omeprazole 20 mg PO DAILY 08/17/16 12/05/18 LORazepam [Lorazepam] 0.5 mg PO Q8HR PRN 09/07/16 12/05/18 QUEtiapine [SEROquel] 100 tab ORAL QPM 05/09/18 12/05/18 Prochlorperazine Maleate 10 mg PO Q6H PRN #30 tablet 05/12/18 12/05/18 [Compazine] Atorvastatin Calcium 20 mg PO QPM 06/15/18 12/05/18 Buspirone HCl 10 mg PO TID 06/15/18 12/05/18 Sumatriptan Succinate [Imitrex] 100 mg PO DAILY PRN 06/15/18 12/05/18 Cholecalciferol (Vitamin D3) 2,000 unit PO DAILY 06/16/18 10/03/18 [Vitamin D3] Potassium Chloride [K-Dur] 20 meq PO DAILY 07/26/18 10/03/18 Clotrimazole Santos 1 lozenge ORAL TID PRN 10/06/18 12/05/18 Lidocaine 2% [Xylocaine 2%] 0.5 tsp ORAL Q6HR PRN 10/06/18 12/05/18 Apixaban [Eliquis] 5 mg PO BID 12/05/18 12/05/18 Citalopram Hydrobromide [Celexa] 20 mg PO DAILY 12/05/18 12/05/18 Salena-C Bioflavoid 1 tab PO DAILY 12/05/18 Furosemide 20 mg PO DAILY 12/05/18 12/05/18 Iron High Potency 240 mg PO DAILY 12/05/18 Mv-Mn/Folic Acid/Vit K/Szil817 1 tab PO DAILY 12/05/18 12/05/18 [Alive Once Daily Women 50 Plus] Saccharomyces Boulardii [Florastor] 250 mg PO BID 12/05/18 12/05/18 oxyCODONE [Roxicodone] 5 - 10 mg PO Q4HR PRN 12/05/18 12/05/18 - Allergies Allergies/Adverse Reactions: Allergies Allergy/AdvReac Type Severity Reaction Status Date / Time mold Allergy Unknown Verified 06/14/18 10:08 Review of Systems - Constitutional Constitutional: reports: Fatigue, Weakness, Weight loss (reports weight loss of 50 pounds since DX; has gained 20 pounds of fluid at hospital; unable to weigh currently because of pain). denies: Fever, Chills - Ears, Nose & Throat Ears, Nose & Throat: reports: Dry mouth - Cardiovascular Cardiovascular: reports: Edema (right leg), Decr. exercise tolerance - Respiratory Respiratory: denies: SOB at rest - Gastrointestinal Gastrointestinal: reports: Good appetite. denies: Abdominal pain, Constipation (uses pedilyte to keep bowels going; has miralax if needed), Diarrhea (resolved), Nausea - Musculoskeletal Musculoskeletal: reports: Stiffness, Muscle weakness, Other (mostly bedbound at baseline related to fatigue; currently bedbound related to pain) - Integumentary Integumentary: reports: Dryness, Other (right leg cellulitis back of right thig h) - Neurological Neurological: reports: General weakness, Headache (chronic migraines; several a month) - Psychiatric Psychiatric: reports: Anxiety - Endocrine Endocrine: reports: Hypothyroidism - Hematologic/Lymphatic Hematologic/Lymphatic: reports: Blood clots (right DVT dx in 06/2018), Recurrent infections - All Other Systems All Other Systems: reports: Reviewed and negative Physical Exam - Vital Signs Temperature: 96.8 C Pulse Rate: 77 Respiratory Rate: 16 O2 Saturation: 98 (ra @ rest) Blood Pressure: 122/72 - Physical Exam General Appearance: positive: Mild distress Eyes Bilateral: positive: Normal inspection ENT: positive: Dry mucous membranes Neck: positive: Trachea midline Cardiovascular: positive: Regular rate & rhythm Respiratory: positive: Diminished in bases. negative: Wheezes, Rales, Rhonchi Abdomen: positive: Non-tender, Soft, Nml bowel sounds, Other (moveable soft 4 cm mass left abdominal wall nontender) Skin: positive: Pallor, Dryness, Bruising, Wound (small dried open wound behind knee; roughened dull red area residual of cellulitis no warmth or erythema noted) Extremities: positive: Other (right leg with 2-3 + edema up into thigh area;) Neurologic/Psychiatric: positive: Oriented x3, Mood/affect nml, Weakness, Flat affect Palliative Care - POLST Patient has POLST: No Pain: Pain unchanged, Location (see HPI; severity high right thigh/calf worsens with weight bearing; relieved with rest in bed) Tiredness/Fatigue: Severe (7-10) Drowsiness/Sedation: None Nausea: Mild (1-3) (intermittent not needing medication) Anxiety: Moderate (4-6) Constipation: No Performance Status: Patient at baseline is very sedentary, does spend most of time in bed secondary to chronic fatigue syndrome and side effects of chemotherapy. Has been ambulatory to the bathroom, but has been able to transport for appointments. Currently is limited related to her pain. Put her at a PPS of 40% - Palliative Care Discussion: Patient does understand the seriousness of her illness, reports treatment is palliative in nature, she had recurrence within 6 months. She is expressing fatigue of being sick, but this is been very hard on her and daughter has this is extended out. In discussion regarding advanced directives, she does have a D POA document that lists her is first and her daughter Anat Gomez as a second. He does have an advanced directive document, though this was filled out several years ago. She has been somewhat ambivalent regarding CODE STATUS, and [facility]. She reports this has to do with her experience in June, she had an episode of atrial fib and rapid ventricular response for which they were able to it sounds like provide shock treatment. She does not want to forego treatments that may improve her quality or quantity of life. Counseling provided regarding the role of the [facility] particularly in the community setting and for EMS, reviewed code versus no code, and selection of increasing levels of intervention. Patient has been weighing benefits and burdens of continuing on with treatment, currently with her pain uncontrolled she is unable to get to her appointments. She does not know what her long-term prognosis is, though she is aware she is terminal. Discussed palliative care following up with oncologist, as this does sound like helpful information patient would use in her decision making, she is in agreement. Impression and Recommendations - Palliative Care Impression: This is a 73-year-old woman with metastatic endometrial carcinoma with abdominal and pelvic metastases, currently receiving treatment. Patient with recent hospitalization for UTI with sepsis, right leg DVT and cellulitis, and presents with acute pain crisis. Palliative care to assist with pain and symptom management, establish goals of care, and transition to hospice when appropriate Recommendations/Counseling Done: 1. Acute right leg pain. This is multifactorial in origin including underlying DVT, edema, lymphedema, cellulitis. Counseling provided regarding discontinuing ibuprofen secondary to bleeding risk with Eliquis. Rx provided and dropped off at [facility] for oxycodone 5 mg 1-2 tabs every 4 hours, counseling provided reg arding appropriate use, side effects, and titration to comfort. Will have both home health RN monitor, as well as check in later in week. Patient instructed to call for any symptoms of concern or further instruction if not effective. Counseling provided regarding constipation, patient reports she uses Pedialyte to keep bowels open, instructed with opioid use may need to add MiraLAX 17 g daily, does have this in the home. Instructed the goal is for daily soft BM. She does have antiemetic if patient has side effects of nausea as well. 2. Generalized weakness. Patient unable to leave the home at this point in time secondary to severe pain and underlying fatigue and weakness. Patient unable to participate in physical therapy with current pain levels. Goal is to get pain controlled, and then will reinitiate home physical therapy, as well as appointments with oncology. 3. Advanced care planning. Initiated conversation regarding goals of care, [facility] form, agreed to palliative care following up with oncologist regarding her prognostic factors and planning for the future. Patient is quite willing to continue with chemotherapy, but needs to be able to get to appointments and have pain adequately controlled. She currently is a full code, her D POA is her Ibrahima Jason [phone] supporting father as needed aand default is Anat Gomez [phone]. Time Spent: 75 minutes with greater than 50% of this done regarding pain and symptom management, introduction of goals of care and advanced care planning, review of situation and symptom burden, and anticipatory guidance [facility]
== END 2018-12-04 12:01 | disposition home or self-care (01) ==
LOC: PC 12:00
PROVIDERS: ATTEND Nurse Practitioner Adult Health
DX: Z51.5 Encounter for palliative care (principal); C54.1 Malignant neoplasm of endometrium; I82.401 Acute embolism and thrombosis of unspecified deep veins of right lower extremity; L03.115 Cellulitis of right lower limb; I89.0 Lymphedema, not elsewhere classified; C79.89 Secondary malignant neoplasm of other specified sites; R53.82 Chronic fatigue, unspecified; R53.1 Weakness; R63.4 Abnormal weight loss; E03.9 Hypothyroidism, unspecified; G62.9 Polyneuropathy, unspecified; D89.89 Other specified disorders involving the immune mechanism, not elsewhere classified; M79.7 Fibromyalgia; G43.909 Migraine, unspecified, not intractable, without status migrainosus; L30.9 Dermatitis, unspecified; F32.9 Major depressive disorder, single episode, unspecified; F41.9 Anxiety disorder, unspecified; Z79.899 Other long term (current) drug therapy; G47.30 Sleep apnea, unspecified; Z79.01 Long term (current) use of anticoagulants; Z79.1 Long term (current) use of non-steroidal anti-inflammatories (NSAID); Z79.891 Long term (current) use of opiate analgesic; Z87.440 Personal history of urinary (tract) infections; Z90.79 Acquired absence of other genital organ(s)
CPT/HCPCS: 99350

== ENCOUNTER 2018-12-11 08:00 | Outpatient (CLI) | payer MEDICARE, MEDICAID ==
[2018-12-11 17:03] LABS: BILIRUBIN,URINE NEGATIVE (NEGATIVE); GLUCOSE, URINE (UA) NEGATIVE (NEGATIVE); KETONES,URINE (UA) NEGATIVE (NEGATIVE); LEUKOCYTE ESTERASE, URINE TRACE (NEGATIVE); NITRITE,URINE NEGATIVE (NEGATIVE); OCCULT BLOOD,URINE LARGE (NEGATIVE); PROTEIN,URINE 30 mg/dL (NEGATIVE); UROBILINOGEN,URINE 0.2 (NORMAL) E.U./dL (NORMAL)
[2018-12-11 17:04] LABS: CLARITY,URINE HAZY (CLEAR)
[2018-12-11 18:16] LABS: AMORPHOUS SEDIMENT,UR Moderate /LPF; BACTERIA,URINE Few /HPF (None Seen); RBC,URINE TNTC /HPF (0-5); SQUAMOUS EPITHELIAL CELL,UR MOD Squamous (<= Few)
== END 2018-12-11 23:59 | disposition home or self-care (01) ==
LOC: LAB.R 08:00
PROVIDERS: ATTEND Nurse Practitioner Adult Health
DX: R31.9 Hematuria, unspecified (principal)
CPT/HCPCS: 81001; 81003; 87086

== ENCOUNTER 2018-12-11 13:00 | Outpatient (CLI) | payer MEDICARE, MEDICAID ==
--- NOTE | 2018-12-11 17:47 | CONSULTATION NOTE ---
Palliative Care Follow Up - Referral Referring Provider: Dr. Ibrahima Perkins Time of Visit: 0830-2628 Referral setting: Home Referral Reason: Acute pain/met endometiral Cancer/ DVT & cellulits right leg - Information Sources Records reviewed: Previous records reviewed History/Review of Systems obtained from: Patient Exam limitations: No limitations - History of Present Illness Update Brief HPI Update: This is a 73-year-old woman with a recent hospitalization at [facility] 11/11/2018 and discharged on 11/20/2018. She was admitted for right leg cellulitis and UTI with sepsis, she is been treated for metastatic/recurrent endometrial serous adenocarcinoma. She was diagnosed with a DVT in June 2018, and has since that time been on Eliquis. She had done fairly poorly with the side effects of her Doxil, though she has completed her 6 cycles, her understanding is she is to have an MRI for staging and continue with the Avastin every 3 weeks. Currently she has been unable to be out of the home secondary severe and uncontrolled pain, did start her last Tuesday on 1-3 tabs of oxycodone every 4 hours, to address the pain which is located in her right thigh, over the area of her cellulitis. It worsens with weightbearing, and was very tender to touch. And follow-up on , she was only getting minimal relief, and has been taking [id number] 15 mg every 4 hours, we switched this to 20 mg every 3 hours as needed, she has been consistently taking this, for a total of 180 mg of oxycodone in 24 hours. She reports her pain has gone from severe to moderate to severe. She has been able to ambulate back and forth to the bathroom, this is a huge improvement. She does not feel like she could tolerate though a trip up to the hospital, as her pain still worsens with her leg hanging down. Examination the redness and erythema has diminished significantly, but when it has worsened is when palpated, is much more firm, and somewhat woody in consistency. There are no longer any open areas, but swelling continues, she does have good circulation to her foot, but slight trace edema as well. It is larger than her left thigh. Patient does report has not moved her bowels for 3 days, her abdomen is soft, she has had no nausea or vomiting. Her appetite is been good. She declines to use bowel meds, reports Pedialyte gives her relief. She is willing to add bowel meds if no BM by tomorrow. She did call on Tuesday afternoon, reported she had increased symptoms of a UTI, with frequency, difficulty voiding, and concern for UTI. Unable to collect urine given the situation, patient wanted to avoid hospitalization. She was started on Bactrim DS 1 tab twice daily, as well as Diflucan 150 mg x1 as she does have high risk for candidiasis. She reports she started having hematuria on Tuesday, no increase in pain or other signs or symptoms of infection. Denies blood clots, mostly has been a slight pink or dark in color. Reports she did have a temperature this morning of 100.5, but room was quite hot. Currently her vital signs are stable with a temp of 96 6, pulse is 86, O2 sats 97%, blood pr essure 112/72. Her face is slightly flushed but she does not present with fever or chills, change in appetite. We did review it may not be the correct antibiotic, did provide a UA, which was slightly brown in color. Social History - Living Situation Living arrangement: At home Living Situation: With spouse/s.o. Support System: Patient lives at home with her , who has a TBI, is very anxious and easily overwhelmed. They do have a [employer] worker Bee, who is quite familiar with the patient her situation. Does provide 3-4 hours of daily support.Her daughter lives nearby, and visits frequently, but she does work full-time Medications/Allergies - Medications Home Medications: Ambulatory Orders Medication Instructions Recorded Confirmed Levothyroxine [Synthroid] 100 mcg PO QDAC 04/12/16 12/11/18 Topiramate 300 mg PO QPM 04/12/16 12/11/18 Omeprazole 20 mg PO DAILY 08/17/16 12/11/18 LORazepam [Lorazepam] 0.5 mg PO Q8HR PRN 09/07/16 12/11/18 QUEtiapine [SEROquel] 100 tab ORAL QPM 05/09/18 12/11/18 Prochlorperazine Maleate 10 mg PO Q6H PRN #30 tablet 05/12/18 12/11/18 [Compazine] Atorvastatin Calcium 20 mg PO QPM 06/15/18 12/11/18 Buspirone HCl 10 mg PO TID 06/15/18 12/11/18 Sumatriptan Succinate [Imitrex] 100 mg PO DAILY PRN 06/15/18 12/11/18 Cholecalciferol (Vitamin D3) 2,000 unit PO DAILY 06/16/18 12/11/18 [Vitamin D3] Potassium Chloride [K-Dur] 20 meq PO DAILY 07/26/18 12/11/18 Clotrimazole Santos 1 lozenge ORAL TID PRN 10/06/18 12/11/18 Lidocaine 2% [Xylocaine 2%] 0.5 tsp ORAL Q6HR PRN 10/06/18 12/11/18 Apixaban [Eliquis] 5 mg PO BID 12/05/18 12/11/18 Citalopram Hydrobromide [Celexa] 20 mg PO DAILY 12/05/18 12/11/18 Salena-C Bioflavoid 1 tab PO DAILY 12/05/18 12/11/18 Furosemide 20 mg PO DAILY 12/05/18 12/11/18 Iron High Potency 240 mg PO DAILY 12/05/18 12/11/18 Mv-Mn/Folic Acid/Vit [id number] 1 tab PO DAILY 12/05/18 12/11/18 [Alive Once Daily Women 50 Plus] Saccharomyces Boulardii [Florastor] 250 mg PO BID 12/05/18 12/11/18 oxyCODONE [Roxicodone] 10 - 20 mg PO Q3HR PRN 12/05/18 12/11/18 Sulfamethox/Trimeth 800/160 1 tab PO BID MDD 7 days started 12/11/18 12/11/18 [Bactrim Ds] 12/09 fentaNYL [Fentanyl 50mcg patch] 50 mcg TOP .Q3 DAYS 12/11/18 12/11/18 - Allergies Allergies/Adverse Reactions: Allergies Allergy/AdvReac Type Severity Reaction Status Date / Time mold Allergy Unknown Verified 06/14/18 10:08 Review of Systems - Constitutional Constitutional: reports: Fatigue. denies: Chills - Ears, Nose & Throat Ears, Nose & Throat: reports: Dry mouth - Cardiovascular Cardiovascular: reports: Decr. exercise tolerance - Respiratory Respiratory: denies: SOB at rest - Gastrointestinal Gastrointestinal: reports: Abdominal pain, Constipation (no bm x 3 days), Good appetite. denies: Nausea, Vomiting - Genitourinary Genitourinary: reports: Other (hematuria) - Musculoskeletal Musculoskeletal: reports: Stiffness, Limited range of motion, Muscle weakness - Integumentary Integumentary: reports: Rash (improved right thigh), Dryness - Neurological Neurological: reports: General weakness - Endocrine Endocrine: reports: Hypothyroidism - Hematologic/Lymphatic Hematologic/Lymphatic: reports: Recurrent infections - All Other Systems All Other Systems: reports: Reviewed and negative Physical Exam - Vital Signs Temperature: 96.6 C Pulse Rate: 86 Respiratory Rate: 18 O2 Saturation: 97 (ra @ rest) Blood Pressure: 112/72 - Physical Exam General Appearance: positive: No acute distress, Alert Eyes Bilateral: positive: Normal inspection ENT: negative: Pharyngeal erythema Neck: positive: No JVD, Trachea midline Cardiovascular: positive: Regular rate & rhythm Respiratory: positive: No respiratory distress Abdomen: positive: Non-tender, Soft, Nml bowel sounds. negative: Mass Skin: positive: Pallor, Dryness, Wound (right leg faded and healed; no erythema faded pink in two areas compared t before; but firm to touch; not soft; thigh with swelling/taut) Extremities: positive: Pedal edema (right greater than left) Neurologic/Psychiatric: positive: Oriented x3, Weakness Palliative Care - POLST Patient has POLST: No POLST Status: Full Code Pain: Pain improved, Location (see HPI) Tiredness/Fatigue: Severe (7-10) Drowsiness/Sedation: Mild (1-3) Nausea: None Depression: Mild (1-3) Anxiety: Moderate (4-6) Dyspnea: None Anorexia: None Sleep: Variable sleep pattern (up to take pain meds) Constipation: Yes, Opoid induced, Unmanaged Performance Status: Patient was limited by pain, unable to walk. She is now able to walk back and forth to the bathroom, still unable to bear full weight on her leg, is walking on tiptoes. She is dependent for assistance with bathing, can feed herself, and caregiver doing meal prep. - Palliative Care Discussion: Patient is care encouraged her pain is better, is more willing to look at her care plan and further treatment and treatment options. She felt with her pain overwhelming, she was closer to "giving up". We did discuss the [facility] again, patient and asking her what information would be of help, does not actually want her prognosis. She feels like this would be self of filling, she does understand she has a serious illness and her treatment is not curative, she f eels she would intuitively know if she were coming towards the end of her life. We did discuss though at end of life she would want to be at home with hospice, with a focus on comfort. She feels her and daughter in their conversations understand that they do not want her suffering as well. Her understanding that she does need an MRI yet for staging, at this point in time patient would not be able to tolerate getting to the clinic. We will continue to follow up with oncologist for plan of care, I will try and get some sense of prognosis is able to be able to help them in their planning and support. Impression and Recommendations - Palliative Care Impression: This is a 73-year-old woman with metastatic endometrial carcinoma with abdominal, and pelvic metastases, currently still receiving treatment. She has now presented with escalating pain, suspect acute on chronic in nature given it is in her right leg, at her DVT site. Her cellulitis is resolving. Unfortunate she also has presented with hematuria, symptoms of a UTI, and still remains homebound secondary to her pain. She has had some improvement, but requiring high doses of opioid to get relief. Palliative care to assist with pain and symptom management, establish goals of care, and transition to hospice when appropriate. Recommendations/Counseling Done: 1. Acute right leg pain. This is multifactorial in origin including underlying DVT, edema, lymphedema, and history of cellulitis. Patient has been titrated up on her oxycodone over the week, she has at currently 180 mg in 24 hours. This is about 270 mg of morphine equivalents/ decrease for cross tolerance would be about 200 mg. Discussion regarding Transitioning to long-acting, given patient history of bowel obstructions and poor kidney function, would not recommend morphine, but fentanyl. This would translate to about 100 mcg fentanyl patch, given patient's pain is acute in nature, will initiate at 50 mcg and titrate every few patch changes until using less than 4-6 doses of breakthrough pain. Counseling provided regarding fentanyl takes about 12-17 hours to stabilize, goal would be to decrease in amount of breakthrough pain medication back to 10- 20, hope is to minimize need for use. Patient able to verbalize understanding. Also instructed if patch were to come off, to not replace but to we apply new patch. Prescription for 50 mcg patches written and delivered to right debi, goal is to start tomorrow. She will call if any questions or concerns. Functional goal to meet is for patient to be able to ambulate short distances, and tolerate car ride. Her goal is to return back to the [facility] clinic to further explore treatment for her cancer. 2. Hematuria. Patient does have symptoms of UTI, has been treated on Bactrim DS, CrCL was 128 based on 11/19 creat of 0.46 on discharge. She reports her symptoms of a UTI have improved, but did present with hematuria on Tuesday. This has decreased in intensity, no blood clots, but unclear if on correct antibiotic. Patient has been treated multiple times, will go ahead and get a UA for C&S just in case. Patient does not present today with any systemic symptoms other than hematuria. Unclear if temp this a.m. was accurate. No temp of visit. Patient has been instructed though if has fever or chills, confusion, or worsening bleeding to call 911. We will go ahead and order some labs for next home health visit, CBC and CMP, will follow up with oncology if they want to add anything else. 3. Constipation. Patient does not present with any symptoms of obstruction, did discuss concern though patient needs to have daily soft BMs with increased oxycodone use is most likely going to need MiraLAX and/or senna. Patient is quite insistent her Pedialyte is going to do the trick, will have home health nurse follow-up at visit in the next couple days. 4. Generalized weakness. Patient continues with her underlying fatigue, she is more ambulatory. She is still unable to participate in physical therapy with her current pain levels. Goal is to get pain controlled and will reinitiate home physical therapy as well as appointments with oncology. 5. Advanced care planning. Did revisit goals of care, patient feeling better, does want to follow-up with oncology regarding further treatment options. We did discuss in the context of advanced care planning AMANDA , what she would like a end of life, and need to have further direction as far as how best to support her in her goals of care. She dislikes hospitalization, but does have high risk for ongoing sequela related to her cancer and DVT. Time Spent: 60 minutes was given 50% of this done in counseling regarding pain and symptom management opioid safety, reason to call 911 if further bleeding or symptoms regarding UTI as well as anticipatory guidance.
== END 2018-12-11 13:01 | disposition home or self-care (01) ==
LOC: PC 13:00
PROVIDERS: ATTEND Nurse Practitioner Adult Health
DX: Z51.5 Encounter for palliative care (principal); C54.1 Malignant neoplasm of endometrium; I82.401 Acute embolism and thrombosis of unspecified deep veins of right lower extremity; L03.115 Cellulitis of right lower limb; I89.0 Lymphedema, not elsewhere classified; G89.29 Other chronic pain; R31.9 Hematuria, unspecified; R53.1 Weakness; K59.03 Drug induced constipation; T40.2X5A Adverse effect of other opioids, initial encounter; Y92.009 Unspecified place in unspecified non-institutional (private) residence as the place of occurrence of the external cause; C79.89 Secondary malignant neoplasm of other specified sites; E03.9 Hypothyroidism, unspecified; G62.9 Polyneuropathy, unspecified; Z79.899 Other long term (current) drug therapy; Z79.01 Long term (current) use of anticoagulants; Z79.1 Long term (current) use of non-steroidal anti-inflammatories (NSAID); Z79.891 Long term (current) use of opiate analgesic; Z87.440 Personal history of urinary (tract) infections
CPT/HCPCS: 99350

== ENCOUNTER 2018-12-12 08:00 | Outpatient (CLI) | payer MEDICARE, MEDICAID ==
[2018-12-12 17:39] LABS: BASOPHILS # (AUTO) 0.1 10^3/uL (0.0-0.1); BASOPHILS % (AUTO) 2.1 %; EOSINOPHILS # (AUTO) 0.2 10^3/uL (0.0-0.7); HGB - HEMOGLOBIN 11.2 g/dL (12.0-16.0); LYMPHOCYTES # (AUTO) 1.5 10^3/uL (1.5-3.5); LYMPHOCYTES % (AUTO) 27.6 %; MEAN CORPUSCULAR HEMOGLOBIN 30.2 pg (27.0-31.0); MEAN CORPUSCULAR HGB CONC 33.1 g/dL (32.0-36.0); MEAN CORPUSCULAR VOLUME 91.2 fL (81.0-99.0); MEAN PLATELET VOLUME 8.3 fL (7.9-10.8); MONOCYTES % (AUTO) 18.3 %; NEUTROPHILS # (AUTO) 2.6 10^3/uL (1.5-6.6); PLT - PLATELET COUNT 186 10^3/uL (130-450); RED BLOOD COUNT 3.69 10^6/uL (4.20-5.40); RED CELL DISTRIBUTION WIDTH 16.2 % (12.0-15.0); WHITE BLOOD COUNT 5.4 x10^3/uL (4.8-10.8)
[2018-12-12 17:42] LABS: ALBUMIN 3.2 g/dL (3.2-5.5); ALBUMIN/GLOBULIN RATIO 0.9 (1.0-2.2); BILIRUBIN,TOTAL 0.5 mg/dL (0.2-1.0); TOTAL PROTEIN 6.7 g/dL (6.7-8.2)
== END 2018-12-12 23:59 | disposition home or self-care (01) ==
LOC: LAB.R 08:00
PROVIDERS: ATTEND Nurse Practitioner Adult Health
DX: C54.1 Malignant neoplasm of endometrium (principal)
CPT/HCPCS: 80053; 85025; 86304

== ENCOUNTER 2018-12-18 17:52 | Outpatient (CLI) | payer MEDICARE, MEDICAID ==
--- NOTE | 2018-12-18 17:56 | CONSULTATION NOTE ---
Palliative Care Follow Up - Referral Referring Provider: Dr. Ibrahima Perkins Time of Visit: [id number] Referral setting: Home Referral Reason: Met Endometrial Cancer/Acute on Chronic Pain/DVT right leg - Information Sources Records reviewed: Previous records reviewed History/Review of Systems obtained from: Patient Exam limitations: No limitations - History of Present Illness Update Brief HPI Update: This is a 73-year-old woman with metastatic/recurrent endometrial serous adenocarcinoma. She was recently hospitalized at [facility] 11/11 to 11/20/2018. This is related for right leg cellulitis and UTI with sepsis, has a result of leukopenia due to her chemotherapy. She has been homebound since this time, secondary to pain in her right leg, originally determined to be acute from her cellulitis. This is since resolved, redness and erythema and open areas have healed. She though continues with brawny and lymphadema in right thigh, taut, mostly posterior. The swelling has improved, but right thigh is bigger than left. Slight pedal edema, foot warm to touch, pulses present. Pain has not resolved, and still continues to be fairly problematic. She is currently on fentanyl 50 mcg patch, had changed her oxycodone to 10 mg tabs, patient continued on 3-4 tabs for couple days, for a total of 160 mg of oxycodone. She denies any sedation, did have improved pain management, but had frightened herself with her mistake. She is currently taking about 80 mg in 24 hours with better pain control. She is tracking number of pills that she is taking, has had some constipation. She stopped all her pain meds and took of the fentanyl patch for about 12 hours, she did have a bowel movement after which she claims w as 10 days, and is feeling much better. Leg much less tender, no erythema, but it is able to walk on it to the bathroom. She does not feel like she could tolerate a ride up to the hospital for her o ncology appointment yet, reports sitting worsens the pain. Patient denies any abdominal pain. Had followed up with oncology, hoping to get scans from [facility] to see if she had any lymph node involvement or pelvic node involvement in the area. Other than constipation, patient not having any nausea, sedation, confusion and has some improved pain management but still not to a level where she can meet her goal which is to travel in the car. Patient also has long-standing autoimmune dysfunction including but not limited to chronic fatigue syndrome fibromyalgia, chronic migraines, eczema, and anxiety disorder. She has been debilitated from her fibromyalgia and chronic fatigue syndrome for several years. She also has known sleep apnea is not currently using her CPAP Palliative care also to meet today regarding goals of care, and completion of POLST Social History - Living Situation Living arrangement: At home Living Situation: With spouse/s.o. Support System: Patient lives at home, she says most of her time. She is supported by her Ibrahima, who has a TBI, and is having increased health problems of his own including falls frequently. She has a [place] PES worker, but does assist for 3 or 4 hours a day, and her daughter checks on her regularly. She does oversee her own medications, as well as advocates for her own health care needs. I would put her at a PPS of 40% Medications/Allergies - Medications Home Medications: Ambulatory Orders Medication Instructions Recorded Confirmed Levothyroxine [Synthroid] 100 mcg PO QDAC 04/12/16 12/18/18 Topiramate 300 mg PO QPM 04/12/16 12/18/18 Omeprazole 20 mg PO DAILY 08/17/16 12/18/18 LORazepam [Lorazepam] 0.5 mg PO Q8HR PRN 09/07/16 12/18/18 QUEtiapine [SEROquel] 100 tab ORAL QPM 05/09/18 12/18/18 Prochlorperazine Maleate 10 mg PO Q6H PRN #30 tablet 05/12/18 12/18/18 [Compazine] Atorvastatin Calcium 20 mg PO QPM 06/15/18 12/18/18 Buspirone HCl 10 mg PO TID 06/15/18 12/18/18 Sumatriptan Succinate [Imitrex] 100 mg PO DAILY PRN 06/15/18 12/18/18 Cholecalciferol (Vitamin D3) 2,000 unit PO DAILY 06/16/18 12/18/18 [Vitamin D3] Potassium Chloride [K-Dur] 20 meq PO DAILY 07/26/18 12/18/18 Clotrimazole Santos 1 lozenge ORAL TID PRN 10/06/18 12/18/18 Lidocaine 2% [Xylocaine 2%] 0.5 tsp ORAL Q6HR PRN 10/06/18 12/18/18 Apixaban [Eliquis] 5 mg PO BID 12/05/18 12/18/18 Citalopram Hydrobromide [Celexa] 20 mg PO DAILY 12/05/18 12/18/18 Salena-C Bioflavoid 1 tab PO DAILY 12/05/18 12/18/18 Furosemide 20 mg PO DAILY 12/05/18 12/18/18 Iron High Potency 240 mg PO DAILY 12/05/18 12/18/18 Mv-Mn/Folic Acid/Vit [id number] 1 tab PO DAILY 12/05/18 12/18/18 [Alive Once Daily Women 50 Plus] Saccharomyces Boulardii [Florastor] 250 mg PO BID 12/05/18 12/18/18 oxyCODONE [Roxicodone] 10 - 20 mg PO Q3HR PRN MDD 8 tabls 12/05/18 12/18/18 fentaNYL [Fentanyl 50mcg patch] 75 mcg TOP .Q3 DAYS 12/11/18 12/18/18 - Allergies Allergies/Adverse Reactions: Allergies Allergy/AdvReac Type Severity Reaction Status Date / Time mold Allergy Unknown Verified 06/14/18 10:08 Review of Systems - Constitutional Constitutional: reports: Fatigue. denies: Fever - Ears, Nose & Throat Ears, Nose & Throat: reports: Dry mouth - Cardiovascular Cardiovascular: reports: Decr. exercise tolerance. denies: Chest pain - Respiratory Respiratory: reports: SOB with exertion. denies: SOB at rest - Gastrointestinal Gastrointestinal: reports: Constipation (moved bowels on Tuesday after several days), Early satiety. denies: Nausea - Genitourinary Genitourinary: reports: Frequency. denies: Dysuria, Hematuria - Musculoskeletal Musculoskeletal: reports: Stiffness, Muscle weakness - Integumentary Integumentary: reports: Dryness - Neurological Neurological: reports: General weakness - Psychiatric Psychiatric: reports: Anxiety - Hematologic/Lymphatic Hematologic/Lymphatic: reports: Anemia (hgb 11.2), Blood clots, Recurrent infections (just completed Bactrim for UTI) - All Other Systems All Other Systems: reports: Reviewed and negative Physical Exam - Vital Signs Temperature: 97.2 C Pulse Rate: 78 Respiratory Rate: 18 - Physical Exam General Appearance: positive: No acute distress, Alert Eyes Bilateral: positive: Normal inspection Neck: positive: Trachea midline Cardiovascular: positive: Regular rate & rhythm Respiratory: positive: No respiratory distress Abdomen: positive: Soft, Nml bowel sounds, Mass (small palpalble soft mass left side in fat layers, now with more solid area palpated in center of 4 cm area of about 2 cm; not painful) Skin: positive: Pallor, Dryness, Other (back of right thigh with redness/peeling resolved; thigh posterior side from crease to knee brawny, taut, and with lymphadema; erythemia resolved; tenderness improved on palpation still area of severe pain;) Extremities: positive: Pedal edema (trace pedal edema right foot; 1+ right calf; thigh with less swelling than previous but now indurated/brawny posteriorly) Neurologic/Psychiatric: positive: Oriented x3, Mood/affect nml, Weakness Palliative Care - POLST Patient has POLST: Yes POLST Status: DNR, Selective Treatment Pain: Pain improved, Location (patient currently on Fentanyl 50 cmg patch; had d iaphoresis (suspect oxycodone use) and two "fell off" now on right thigh and secured. Staying in the 8 tabs in 24 hours. Improved pain but still problematic unable to tolerate sitting for longer than 5-10 minutes) Tiredness/Fatigue: Severe (7-10) (patient with chronic fatigue syndrome) Drowsiness/Sedation: Mild (1-3) Nausea: None Depression: None Anxiety: Moderate (4-6) Dyspnea: None Sleep: Variable sleep pattern Constipation: Yes, Opoid induced, Unmanaged Feelings of wellbeing/Perceived Quality of Life: Fair, No change Performance Status: Patient currently able to ambulate to the bathroom for short distances, limited again secondary to her right leg pain. She does report now she is able to step flat does not need to to be toe. She has not had the energy or felt her pain is been controlled well enough to bathe, is doing bed baths currently. - Palliative Care Discussion: Patient does understand the seriousness of her illness, she is hoping though to continue on with treatment. We did continue with our AMANDA ST discussion, she did elect DNA R/allow natural but currently would like hospitalization or treatment for reversible conditions. Thus have selected selected treatments, with understanding she can transition to comfort measures at any point as she wants. She would not see quality of life if she were not to have "her marbles", or be further dependent and not able to stay at home. At end of life she would like to at home surrounded by her family with hospice support. Patient's current short-term goals include getting her pain under control, follow-up with her oncologist, and be able to spend time with her family. Results - Lab Results Lab results reviewed: Yes Lab and Imaging Results: Reviewed lab results from 12/13, GFR proved to 55, her BUN is 15, creatinine 1.0. Her total protein 6.7 albumin 3.2. She still remains anemic with hemoglobin 11.2 and hematocrit at 33.7 though this is close to her baseline. Her CA 125 was 31.1 has increased a few numbers. Impression and Recommendations - Palliative Care Impression: This is a 73-year-old woman with metastatic endometrial carcinoma with abdominal, pelvic metastases, currently hoping to return to treatment. Her pain is acute on chronic in nature, in her right leg at her DVT site. Her cellulitis is resolved, but still continues with some indurated area hard to touch, brawny with lymphedema. This is a source of her pain in her right thigh. She has not had any further hematuria, her UTI has resolved, but does report she has had recurrent candidiasis. She does present with with high symptom burden. Palliative care to assist with pain and symptom management, provide support in home setting until patient able to transition back to her oncologist. Recommendations/Counseling Done: 1. Acute on chronic right leg pain. This is multifactorial, including most likely underlying DVT, lymphedema, history of cellulitis. We will go ahead and titrate her from fentanyl 50 mcg to 75 mcg patch. She has been instructed to stay within the oxycodone 80 mg/in 24 hours for breakthrough pain. Reviewed goals of pain management is to have less than 2 or 3 doses of breakthrough pain medication, and be able to tolerate functionally riding in a car, as well as ambulating in home. 2. Hematuria. This is resolved, patient remains slightly anemic, but this is close to her baseline on discharge from hospital. 3. Vaginal candidiasis. Patient has ordered refill on her Diflucan 150 mg, she will contact me if this is not resolved within the next few days. 4. Constipation. Patient was quite resistant to initiating any kind of bowel meds. She has been instructed to start MiraLAX 1 capful daily, as well as senna concentrate 8.6 mg tabs 2 tabs twice a day. Counseling provided regarding opioid-induced constipation, patient in agreement to follow plan. 5. Generalized weakness. Patient continues with her underlying fatigue, she is ambulating back and forth to the bathroom, she still is not able to participate in physical therapy with her current fatigue and pain levels. Patient has been encouraged to at least get out in the living room a couple times a day, as she is spending most of her time in her bed and bedroom. 6. Advanced care planning. Patient at this point in time would like to pursue ongoing palliative treatment with oncology, she has set her appointment out to the beginning of January. We did complete her AMANDA ST today, as well as goals of care conversation she does dislike hospitalization but does have high risk for ongoing sequela related to her cancer, risk for infection, and DVT. Time Spent: 5 minutes with greater than 50% of this done in counseling regarding pain and symptom management, safety with opioids, management of constipation, goals of care, completion of the AMANDA ST and anticipatory guidance
== END 2018-12-18 17:53 | disposition home or self-care (01) ==
LOC: PC 17:52
PROVIDERS: ATTEND Nurse Practitioner Adult Health
DX: Z51.5 Encounter for palliative care (principal); C54.1 Malignant neoplasm of endometrium; K59.03 Drug induced constipation; T40.2X5A Adverse effect of other opioids, initial encounter; G89.29 Other chronic pain; M79.604 Pain in right leg; I82.401 Acute embolism and thrombosis of unspecified deep veins of right lower extremity; I89.0 Lymphedema, not elsewhere classified; B37.3 Candidiasis of vulva and vagina; R53.1 Weakness; M79.7 Fibromyalgia; G43.909 Migraine, unspecified, not intractable, without status migrainosus; L30.9 Dermatitis, unspecified; F41.9 Anxiety disorder, unspecified; R35.0 Frequency of micturition; Z66 Do not resuscitate; Z79.01 Long term (current) use of anticoagulants; Z79.891 Long term (current) use of opiate analgesic; Z87.440 Personal history of urinary (tract) infections
CPT/HCPCS: 99349

== ENCOUNTER 2018-12-26 16:15 | Outpatient (CLI) | payer MEDICARE, MEDICAID ==
--- NOTE | 2018-12-26 17:30 | CONSULTATION NOTE ---
Palliative Care Follow Up - Referral Referring Provider: Dr. Ibrahima Perkins Time of Visit: 7406-2256 Referral setting: Home Referral Reason: Right leg abcess/Met endometrial cancer - Information Sources Records reviewed: Previous records reviewed History/Review of Systems obtained from: Patient Exam limitations: No limitations - History of Present Illness Update Brief HPI Update: This is a 73-year-old woman with metastatic/recurrent endometrial serous adenocarcinoma. She was recently hospitalized at [facility] 11/11 to 11/20/2018 for right leg cellulitis, UTI with sepsis, this was as result of leukopenia due to her chemotherapy. She has been homebound since this time secondary to significant pain in her right leg, originally determined to be acute from her cellulitis. She has had a resolution of the redness and improvement in swelling, though still has some right leg thigh swelling noted today. Though i nfection signs and symptoms have been improving, the acute pain had not. Last visit had titrated her fentanyl up to 75 mcg, and is using 10-20 mg of oxycodone with an average about 80 mg in 24 hours. Had called to inquire how titration of pain medication was going, reports she had developed over the weekend last 2-3 days a large golf size swelling to the right medial aspect of her knee, very ten harrison in touch, had been using ice. Visit planned for follow up. On examination she does have a abscess that has worked its way to the surface, does have a white head of about 1 cm, swollen and tender to touch, area of swelling is about the size of a walnut, with a reddened area around it of about 3-4 cm. She also has developed a small swelling in the back of her thigh as well, where her original skin excoriation was of 1 cm area abcess. She does have good pedal pulses, no swelling in her calf or ankle, but continues with lymphedema/edema in her right thigh, though is softer than last visit. Patient does not present with any acute signs or symptoms of sepsis, she is afebrile, her pulse is 96, blood pressure 112/72, no fever or chills. Had recommended she go to the ED for evaluation and possible I & D, does not have transportation until tomorrow. Was resistant to follow through even tomorrow, called but no urgent care openings for PCP available in time she could go. She did agree to go tomorrow, and will call 911 if systemic signs or symptoms develop tonight. Past medical history includes diagnosis of a DVT in June 2018, since this time is been on Eliquis. She had completed Doxil, for her recurrent endometrial serous adenocarcinoma. Her history includes a complete hysterectomy in early 2016, followed by adjuvant chemotherapy with carbo/Taxol until 01/2017 followed by adjuvant brachytherapy. She had recurrence involving the vaginal cuff in May 2018, as well as pelvic sidewall and left abdominal wall. She has had some small bowel obstructions, recurrent UTIs, and peripheral neuropathy. She also has long-standing autoimmune disorder including but not limited to chronic fatigue syndrome, fibromyalgia, chronic migraines, eczema, and long- standing anxiety disorder. She does have sleep apnea, currently not using CPAP Social History - Living Situation Living arrangement: At home Living Situation: With spouse/s.o. Support System: Patient is cared for at home by her Ibrahima, he has a TBI and gets quite anxious and overwhelmed. She does have [employer] PES worker Bee, who has had a long- term relationship with them. Medications/Allergies - Medications Home Medications: Ambulatory Orders Medication Instructions Recorded Confirmed Levothyroxine [Synthroid] 100 mcg PO QDAC 04/12/16 12/18/18 Topiramate 300 mg PO QPM 04/12/16 12/18/18 Omeprazole 20 mg PO DAILY 08/17/16 12/18/18 LORazepam [Lorazepam] 0.5 mg PO Q8HR PRN 09/07/16 12/18/18 QUEtiapine [SEROquel] 100 tab ORAL QPM 05/09/18 12/18/18 Prochlorperazine Maleate 10 mg PO Q6H PRN #30 tablet 05/12/18 12/18/18 [Compazine] Atorvastatin Calcium 20 mg PO QPM 06/15/18 12/18/18 Buspirone HCl 10 mg PO TID 06/15/18 12/18/18 Sumatriptan Succinate [Imitrex] 100 mg PO DAILY PRN 06/15/18 12/18/18 Cholecalciferol (Vitamin D3) 2,000 unit PO DAILY 06/16/18 12/18/18 [Vitamin D3] Potassium Chloride [K-Dur] 20 meq PO DAILY 07/26/18 12/18/18 Clotrimazole Santos 1 lozenge ORAL TID PRN 10/06/18 12/18/18 Lidocaine 2% [Xylocaine 2%] 0.5 tsp ORAL Q6HR PRN 10/06/18 12/18/18 Apixaban [Eliquis] 5 mg PO BID 12/05/18 12/18/18 Citalopram Hydrobromide [Celexa] 20 mg PO DAILY 12/05/18 12/18/18 Salena-C Bioflavoid 1 tab PO DAILY 12/05/18 12/18/18 Furosemide 20 mg PO DAILY 12/05/18 12/18/18 Iron High Potency 240 mg PO DAILY 12/05/18 12/18/18 Mv-Mn/Folic Acid/Vit [id number] 1 tab PO DAILY 12/05/18 12/18/18 [Alive Once Daily Women 50 Plus] Saccharomyces Boulardii [Florastor] 250 mg PO BID 12/05/18 12/18/18 oxyCODONE [Roxicodone] 10 - 20 mg PO Q3HR PRN MDD 8 tabls 12/05/18 12/18/18 fentaNYL [Fentanyl 50mcg patch] 75 mcg TOP .Q3 DAYS 12/11/18 12/18/18 - Allergies Allergies/Adverse Reactions: Allergies Allergy/AdvReac Type Severity Reaction Status Date / Time mold Allergy Unknown Verified 06/14/18 10:08 Review of Systems - Constitutional Constitutional: reports: Fatigue. denies: Fever, Chills, Malaise, Night sweats - Respiratory Respiratory: denies: SOB at rest - Gastrointestinal Gastrointestinal: reports: Constipation (last bowel movement ; denies bloating or abd. pain/discomfort; current bowel program Miralax and senna 2 tabs BID), Early satiety. denies: Nausea, Vomiting, Reflux/heartburn - Genitourinary Genitourinary: denies: Dysuria - Musculoskeletal Musculoskeletal: reports: Muscle weakness - Integumentary Integumentary: reports: Other (new abcesses in right leg) - Neurological Neurological: reports: General weakness, Headache (longstanding chronic daily headaches; migraine yesterday) - Psychiatric Psychiatric: reports: Anxiety - Hematologic/Lymphatic Hematologic/Lymphatic: reports: Recurrent infections - All Other Systems All Other Systems: reports: Reviewed and negative Physical Exam - Vital Signs Temperature: 96.7 C Pulse Rate: 96 Respiratory Rate: 18 O2 Saturation: 97 (ra @ rest) Blood Pressure: 112/72 - Physical Exam General Appearance: positive: No acute distress Eyes Bilateral: positive: Normal inspection ENT: positive: No signs of dehydration Neck: positive: No JVD, Trachea midline Cardiovascular: positive: Regular rate & rhythm Respiratory: positive: No respiratory distress Abdomen: positive: Non-tender, Soft, Nml bowel sounds, Mass (in right side wall; firmer and enlarging mass noted about size of yuhaaviatam;) Skin: positive: Pallor, Dryness, Other (see HPI) Extremities: positive: Other (edema in right thigh) Neurologic/Psychiatric: positive: Oriented x3, Mood/affect nml Palliative Care - POLST Patient has POLST: Yes POLST Status: DNR, Selective Treatment Pain: Pain improved, Location (Patient currently on fentanyl 75 mcg every 3 days. Patient is using it on her left thigh secondary to difficulty sticking on her upper chest. She is using about 80 mg of oxycodone daily, has reported the higher level of fentanyl is given her better control, but continues with acute pain in and localized around the abscess and right thigh area. Reports has improved in the last 24 hours, had escalated over the weekend. Had been using ice, instructed not to use any further ice on abscess area.) Tiredness/Fatigue: Moderate (4-6) Drowsiness/Sedation: Mild (1-3) Nausea: None Depression: Mild (1-3) Anxiety: Moderate (4-6) Dyspnea: None Anorexia: Mild (1-3) Sleep: Variable sleep pattern (slept poorly last night; unable to identifying contributing factors) Constipation: Yes, Opoid induced, Unmanaged Performance Status: She is at baseline is very sedentary secondary to her chronic fatigue syndrome. She has been mostly in bed secondary to her pain, and exacerbated pain with walking. She is concerned about traveling in the car, sitting does exacerbate her pain. She did have physical therapy ordered on discharge, at this point is not been able to participate. She can ambulate back and forth to the bathroom at this point in time. I would put her at a PPS of 40% - Palliative Care Discussion: Patient awaiting for improved pain management, is planning to get follow-up scan on 01/[address] Wynn the next week. She does have a AMANDA ST with DNA R/selective treatments. She would still accept treatment for reversible conditions, as well as hospitalization. She at this point is still planning to continue with treatment, though recognizing it is palliative intent. She is feeling somewhat low level anxiety recognizing her tumor is progressing, as is somewhat prominent on her left side and small mass is enlarging as well as from her in palpation on exam. asking for resources for support, for being a caregiver of "someone with cancer". They do live in [place], did recommend [facility] which is quite close, they do have a caregiver group. He will follow-up. Impression and Recommendations - Palliative Care Impression: This is a 73-year-old woman with metastatic/recurrent endometrial carcinoma with abdominal/pelvic metastases, hoping to return to treatment. Her acute pain, now presents with a developing abscess in the right medial aspect in her skin next to her knee. She was hospitalized early November with cellulitis, suspect her abscess has been developing. Her pain is fairly localized today, has been more diffuse in her right thigh area, still presents with swelling and some induration. Patient also has a history of DVT in her right leg. Patient does need to have urgent follow-up, has agreed to ED visit with transportation available tomorrow. The patient has been educated in signs or symptoms to a ccess 911 more urgently. Recommendations/Counseling Done: 1. Right leg abscess. This appears to be the source of her underlying acute pain, does appear to need an I&D or further evaluation. Patient has been advised to go to the ED, have negotiated she will go up tomorrow when her transportation is available. Patient has been instructed in signs and symptoms of acute sepsis or reasons to call 911. She is in agreement to follow-up on plan. 2. Acute on chronic right leg pain. Patient currently on fentanyl 75 mcg patch, with 80 mg of oxycodone/in 24 hours. Currently feels this is tolerable, will continue to evaluate, after ED evaluation and follow-up depending on outcome. 3. Vaginal candidiasis. She reports this is now cleared. 4. Constipation. Patient's last bowel movement, there is a he will not moving bowels on a regular basis. She has been using MiraLAX 1 capful daily, and senna 2 tabs twice a day. Counseling provided to titrate up to 3 tabs 3 times a day until bowels have moved, then may decrease to 2 tabs 3 times daily. Patient does have history of bowel obstruction, her abdomen is quite soft has regular bowel tones, no abdominal distention noted. Patient though instructed on the urgency to continue to focus on aggressive bowel management. 5. Hematuria. No recurrence, she is drinking or pushing fluids. Denies any further signs or symptoms of dysuria. 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 6. Advanced care planning. Patient at this point in time is going to pursue ongoing palliative treatment with oncology, appointments are set as well as we staging scans. Patient does have a AMANDA ST, and Christelle POLO is her . Patient would accept hospitalization and treatment for reversible conditions at this point in time. Awaiting follow-up to see where her disease status is for further long-term planning. Plan. Follow-up after ED visit, for further support needs and pain management. Time Spent: 80 minutes with greater than 50% of this done in counseling regarding signs and symptoms of sepsis, worsening infection, pain management, constipation management as well as anticipatory guidance
== END 2018-12-26 16:16 | disposition home or self-care (01) ==
LOC: PC 16:15
PROVIDERS: ATTEND Nurse Practitioner Adult Health
DX: Z51.5 Encounter for palliative care (principal); Z22.322 Carrier or suspected carrier of Methicillin resistant Staphylococcus aureus; Z79.891 Long term (current) use of opiate analgesic; I89.0 Lymphedema, not elsewhere classified; Z86.718 Personal history of other venous thrombosis and embolism; Z79.01 Long term (current) use of anticoagulants; Z79.899 Other long term (current) drug therapy; Z90.710 Acquired absence of both cervix and uterus; Z92.21 Personal history of antineoplastic chemotherapy; C79.89 Secondary malignant neoplasm of other specified sites; Z85.42 Personal history of malignant neoplasm of other parts of uterus; R53.82 Chronic fatigue, unspecified; M79.7 Fibromyalgia; G47.30 Sleep apnea, unspecified; F41.9 Anxiety disorder, unspecified; G43.909 Migraine, unspecified, not intractable, without status migrainosus; Z66 Do not resuscitate; L02.415 Cutaneous abscess of right lower limb; G89.29 Other chronic pain; K59.03 Drug induced constipation; T40.2X5D Adverse effect of other opioids, subsequent encounter; Z87.19 Personal history of other diseases of the digestive system; Z86.19 Personal history of other infectious and parasitic diseases; Z87.440 Personal history of urinary (tract) infections; Z92.3 Personal history of irradiation
CPT/HCPCS: 99348

== ENCOUNTER 2018-12-27 11:43 | Emergency (ER) | payer MEDICARE, MEDICAID ==
[2018-12-27 11:53] VITALS: BP 139/68
[2018-12-27] MEDS ORDERED: LORazepam 2 MG/ML VIAL IVP STA (12:10)
[2018-12-27] MEDS ORDERED: HYDROmorphone 1 MG/ML CARPUJECT IM STA (12:10)
[2018-12-27] MEDS ORDERED: SULFAMETH/TRIMETH DS 800/160 MG TABLET PO STA (12:10)
[2018-12-27] MEDS ORDERED: BUFFERED LIDOCAINE 10 ML SYRINGE SUBQ STA (12:10)
--- NOTE | 2018-12-27 12:12 | ED Physician Documentation ---
PD HPI WOUND RECHECK - Stated complaint Stated Complaint: ABCESS ON RIGHT LEG - Chief complaint Chief Complaint: Wound - Histroy obtained from History obtained from: Patient - History of Present Illness Location: Right Lower Extremity (This is a 73-year-old woman who has age endometrial cancer who and a history of MRSA who presents with a 2-day history of an abscess to the right leg. There is no associated fevers, chills or sweats.) Review of Systems Constitutional: denies: Fever, Chills, Sweats Cardiac: reports: Reviewed and negative Respiratory: reports: Reviewed and negative PD PAST MEDICAL HISTORY - Past Medical History Cardiovascular: High cholesterol Respiratory: Pneumonia, Sleep apnea, CPAP use Neuro: Migraines, Peripheral neuropathy Endocrine/Autoimmune: HyPOthyroidism GI: GERD UNDERGRADUATE INTERNSHIP: Other (Endometrial cancer with metastasis) : None HEENT: Other Psych: Depression, Anxiety, Panic attacks, Post traumatic stress disorder, Claustrophobia Musculoskeletal: Osteoarthritis, Fibromyalgia, Fatigue, Chronic back pain Derm: Other drug resistant infections, Eczema - Past Surgical History Past Surgical History: No /UNDERGRADUATE INTERNSHIP: Hysterectomy - Present Medications Home Medications: Ambulatory Orders Medication Instructions Recorded Confirmed Levothyroxine [Synthroid] 100 mcg PO QDAC 04/12/16 12/18/18 Topiramate 300 mg PO QPM 04/12/16 12/18/18 Omeprazole 20 mg PO DAILY 08/17/16 12/18/18 LORazepam [Lorazepam] 0.5 mg PO Q8HR PRN 09/07/16 12/18/18 QUEtiapine [SEROquel] 100 tab ORAL QPM 05/09/18 12/18/18 Prochlorperazine Maleate 10 mg PO Q6H PRN #30 tablet 05/12/18 12/18/18 [Compazine] Atorvastatin Calcium 20 mg PO QPM 06/15/18 12/18/18 Buspirone HCl 10 mg PO TID 06/15/18 12/18/18 Sumatriptan Succinate [Imitrex] 100 mg PO DAILY PRN 06/15/18 12/18/18 Cholecalciferol (Vitamin D3) 2,000 unit PO DAILY 06/16/18 12/18/18 [Vitamin D3] Potassium Chloride [K-Dur] 20 meq PO DAILY 07/26/18 12/18/18 Clotrimazole Santos 1 lozenge ORAL TID PRN 10/06/18 12/18/18 Lidocaine 2% [Xylocaine 2%] 0.5 tsp ORAL Q6HR PRN 10/06/18 12/18/18 Apixaban [Eliquis] 5 mg PO BID 12/05/18 12/18/18 Citalopram Hydrobromide [Celexa] 20 mg PO DAILY 12/05/18 12/18/18 Salena-C Bioflavoid 1 tab PO DAILY 12/05/18 12/18/18 Furosemide 20 mg PO DAILY 12/05/18 12/18/18 Iron High Potency 240 mg PO DAILY 12/05/18 12/18/18 Mv-Mn/Folic Acid/Vit [id number] 1 tab PO DAILY 12/05/18 12/18/18 [Alive Once Daily Women 50 Plus] Saccharomyces Boulardii [Florastor] 250 mg PO BID 12/05/18 12/18/18 oxyCODONE [Roxicodone] 10 - 20 mg PO Q3HR PRN MDD 8 tabls 12/05/18 12/18/18 fentaNYL [Fentanyl 50mcg patch] 75 mcg TOP .Q3 DAYS 12/11/18 12/18/18 Fluconazole [Diflucan] 150 mg PO ONCE PRN #2 tablet 12/27/18 Sulfamethoxazole/Trimethoprim 1 each PO BID #20 tablet 12/27/18 [Sulfamethoxazole-Tmp Ds Tablet] - Allergies Allergies/Adverse Reactions: Allergies Allergy/AdvReac Type Severity Reaction Status Date / Time mold Allergy Unknown Verified 12/27/18 11:53 - Social History Does the pt smoke?: No Smoking Status: Former smoker Does the pt drink ETOH?: No Does the pt have substance abuse?: No - Immunizations Immunizations are current?: Yes - POLST Patient has POLST: Yes POLST Status: Full Code PD ED PE NORMAL - Vitals Vital signs reviewed: Yes - General General: Alert and oriented X 3, No acute distress - Extremities Extremities: Other (There is a pointed 3 cm abscess to the posterior medial right knee with overlying cellulitis) - Neuro Neuro: Alert and oriented X 3, No motor deficit, Normal speech Results - Vitals Vitals: Vital Signs - 24 hr 12/27/18 11:49 Temperature 36.7 C Heart Rate 93 Respiratory 18 Rate Blood Pressure 139/68 H O2 Saturation 98 Oxygen O2 Source Room air Procedures - Abscess I&D (location) RLE Preparation: Alcohol, Lidocaine 1% Incision: Incised with scalpel, Purulent drainage, Loculations broken, Culture obtained. No: Packed Other: Pt tolerated well, Dressing applied, Antibiotic prescribed PD MEDICAL DECISION MAKING - ED course ED course: After the initial I&D the nurse got her up to clean her up and put a dressing on and she had a lot more drainage. Was reinfiltrated with lidocaine and then a second incision was made higher up in a looped [place] drain was placed. I recommended hospitalization given the extent of the abscess, she wants a trial of outpatient management. Departure - Departure Disposition: 01 Home, Self Care Clinical Impression: Abscess Condition: Good Record reviewed to determine appropriate education?: Yes Instructions: ED Abscess IandD Prescriptions: Fluconazole [Diflucan] 150 mg PO ONCE PRN #2 tablet PRN Reason: yeast infection Sulfamethoxazole/Trimethoprim [Sulfamethoxazole-Tmp Ds Tablet] 1 each PO BID #20 tablet Comments: We are performing a wound culture, the results should be done in 48-72 hours. If antibiotic change is necessary we will call you. Return if worse in the meantime, especially if you develop increased pain, fevers, cannot keep down the medication. Otherwise follow-up with your physician in approximately 2-3 days.
== END 2018-12-27 13:45 | disposition home or self-care (01) ==
LOC: ED 11:43
DX: L02.415 Cutaneous abscess of right lower limb (principal); C54.1 Malignant neoplasm of endometrium; C79.9 Secondary malignant neoplasm of unspecified site; Z87.891 Personal history of nicotine dependence
CPT/HCPCS: 10060; 87070; 87205; 96372; 96374; 99283; A9270; J1170; J2060

== ENCOUNTER 2018-12-29 12:31 | Emergency (ER) | payer MEDICARE, MEDICAID ==
--- NOTE | 2018-12-29 12:51 | ED Physician Documentation ---
PD HPI WOUND RECHECK - Stated complaint Stated Complaint: RT LEG WOUND CHECK/SENT BY - Chief complaint Chief Complaint: Wound - Histroy obtained from History obtained from: Patient - History of Present Illness Location: Right Lower Extremity (Lower posterior lateral thigh had abscess that was incised and drained and he had Ellen drain looped in for promoting drainage. She had been directed to recheck for evaluation and drain removal. She states the swelling and redness have gone down. It is still been draining onto dressings. She has not have any fevers.) Timing - onset: How many days ago (2) Associated symptoms: Redness (decreasing), Swelling (decreasing), Drainage (still some drainage today). No: Fever Recently seen: Emergency Dept Review of Systems Constitutional: reports: Myalgias. denies: Fever, Chills Neurologic: denies: Focal weakness, Numbness PD PAST MEDICAL HISTORY - Past Medical History Past Medical History: Yes Cardiovascular: High cholesterol Respiratory: Pneumonia, Sleep apnea, CPAP use Neuro: Migraines, Peripheral neuropathy Endocrine/Autoimmune: HyPOthyroidism GI: GERD DEPARTMENT OF SOCIOLOGY CHAIR: Other : None HEENT: Other Psych: Depression, Anxiety, Panic attacks, Post traumatic stress disorder, Claustrophobia Musculoskeletal: Osteoarthritis, Fibromyalgia, Fatigue, Chronic back pain Derm: Other drug resistant infections, Eczema - Past Surgical History Past Surgical History: Yes /DEPARTMENT OF SOCIOLOGY CHAIR: Hysterectomy - Present Medications Home Medications: Ambulatory Orders Medication Instructions Recorded Confirmed Levothyroxine [Synthroid] 100 mcg PO QDAC 04/12/16 12/18/18 Topiramate 300 mg PO QPM 04/12/16 12/18/18 Omeprazole 20 mg PO DAILY 08/17/16 12/18/18 LORazepam [Lorazepam] 0.5 mg PO Q8HR PRN 09/07/16 12/18/18 QUEtiapine [SEROquel] 100 tab ORAL QPM 05/09/18 12/18/18 Prochlorperazine Maleate 10 mg PO Q6H PRN #30 tablet 05/12/18 12/18/18 [Compazine] Atorvastatin Calcium 20 mg PO QPM 06/15/18 12/18/18 Buspirone HCl 10 mg PO TID 06/15/18 12/18/18 Sumatriptan Succinate [Imitrex] 100 mg PO DAILY PRN 06/15/18 12/18/18 Cholecalciferol (Vitamin D3) 2,000 unit PO DAILY 06/16/18 12/18/18 [Vitamin D3] Potassium Chloride [K-Dur] 20 meq PO DAILY 07/26/18 12/18/18 Clotrimazole Santos 1 lozenge ORAL TID PRN 10/06/18 12/18/18 Lidocaine 2% [Xylocaine 2%] 0.5 tsp ORAL Q6HR PRN 10/06/18 12/18/18 Apixaban [Eliquis] 5 mg PO BID 12/05/18 12/18/18 Citalopram Hydrobromide [Celexa] 20 mg PO DAILY 12/05/18 12/18/18 Salena-C Bioflavoid 1 tab PO DAILY 12/05/18 12/18/18 Furosemide 20 mg PO DAILY 12/05/18 12/18/18 Iron High Potency 240 mg PO DAILY 12/05/18 12/18/18 Mv-Mn/Folic Acid/Vit [id number] 1 tab PO DAILY 12/05/18 12/18/18 [Alive Once Daily Women 50 Plus] Saccharomyces Boulardii [Florastor] 250 mg PO BID 12/05/18 12/18/18 oxyCODONE [Roxicodone] 10 - 20 mg PO Q3HR PRN MDD 8 tabls 12/05/18 12/18/18 fentaNYL [Fentanyl 50mcg patch] 75 mcg TOP .Q3 DAYS 12/11/18 12/18/18 Fluconazole [Diflucan] 150 mg PO ONCE PRN #2 tablet 12/27/18 Sulfamethoxazole/Trimethoprim 1 each PO BID #20 tablet 12/27/18 [Sulfamethoxazole-Tmp Ds Tablet] - Allergies Allergies/Adverse Reactions: Allergies Allergy/AdvReac Type Severity Reaction Status Date / Time mold Allergy Unknown Verified 12/29/18 12:39 - Social History Does the pt smoke?: No Smoking Status: Former smoker Does the pt drink ETOH?: No Does the pt have substance abuse?: No - Immunizations Immunizations are current?: Yes - POLST Patient has POLST: Yes POLST Status: Full Code PD ED PE NORMAL - Vitals Vital signs reviewed: Yes - General General: Alert and oriented X 3, No acute distress, Well developed/nourished - Derm Derm: Normal color, Warm and dry - Extremities Extremities: Other (The right lower posterior lateral thigh shows an area of mild inflammation with minimal redness. There are 2 open wounds from incision and drainage and Pinard's drain coming out looped and tied. There is slight drainage noted.) Results - Vitals Vitals: Vital Signs - 24 hr 12/29/18 12/29/18 12:37 13:26 Temperature 36.5 C Heart Rate 95 72 Respiratory 16 18 Rate Blood Pressure 121/68 126/70 O2 Saturation 97 97 Oxygen O2 Source Room air Departure - Departure Disposition: 01 Home, Self Care Clinical Impression: Abscess re-check Condition: Stable Record reviewed to determine appropriate education?: Yes Follow-Up: Ibrahima Perkins MD [Primary Care Provider] - Comments: Warm moist compresses or soaks for the area 2-3 times a day. Dressings on it to continue to promote drainage. Continue your antibiotics. Recheck if not continually improving over the next several days as well and the drainage should decrease and stop. The wounds from opening the abscess should heal up over a week or so. Discharge Date/Time: 12/29/18 13:29
[2018-12-29 13:27] VITALS: BP 126/70
== END 2018-12-29 13:29 | disposition home or self-care (01) ==
LOC: ED 12:31
DX: L02.415 Cutaneous abscess of right lower limb (principal); M79.7 Fibromyalgia; G62.9 Polyneuropathy, unspecified; Z79.01 Long term (current) use of anticoagulants; Z87.891 Personal history of nicotine dependence
CPT/HCPCS: 99282; 99283

== ENCOUNTER 2019-01-09 10:57 | Outpatient (CLI) | payer MEDICARE, MEDICAID ==
[2019-01-09] MEDS ORDERED: IOVERSOL 320 100 ML VIAL IVP ONE ×2 (11:52→13:41)
[2019-01-09] MEDS ORDERED: IOVERSOL 320 50 ML VIAL ONE (11:52)
[2019-01-09] MEDS ORDERED: IOVERSOL 320 50 ML VIAL PO ONE (13:41)
--- NOTE | 2019-01-09 16:53 | CT Report ---
Reason: ENDOMETRIAL CANCER, METASTATIC Procedure Date: 01/09/2019 Accession Number: [id number] / [id number] Procedure: CT - Abdomen/Pelvis W CPT Code: FULL RESULT: EXAM: CT ABDOMEN AND PELVIS EXAM DATE: 01/09/2019 01:14 PM. CLINICAL HISTORY: ENDOMETRIAL CANCER, METASTATIC. For follow-up COMPARISONS: 06/17/2018, 06/15/2018 and 02/21/2018. TECHNIQUE: Routine helical CT imaging was performed through the abdomen and pelvis. IV contrast: opti 320 90mL. Enteric contrast: Yes. Reconstructions: Coronal and sagittal. In accordance with CT protocol optimization, one or more of the following dose reduction techniques were utilized for this exam: automated exposure control, adjustment of mA and/or KV based on patient size, or use of iterative reconstructive technique. FINDINGS: Lung Bases: Hiatal hernia no longer seen. Liver: A few peripheral calcifications 11/20 and 11/25, and one sub-centimeter cyst is noted 11/24. No masses. Gallbladder/Bile Ducts: Distended. No radiopaque stones identified. Spleen: Normal. Pancreas: Normal. Adrenal Glands: Normal. Kidneys: Left: Stable small lower pole cyst. No masses or hydronephrosis. Right kidney, peritoneal cavity, and pelvis: New massive right hydronephrosis with the right renal pelvis measuring 3.5 cm and the mid ureter measuring 1.8 cm. The level of obstruction is in the right pelvis where a soft tissue mass initially identified on 02/21/2018 was subsequently replaced by an extraluminal collection of fluid and gas on the 06/15/2018 CT. There is now a heterogenous ill defined soft tissue mass question tumor, adenopathy, scarring, and/or infection measuring approximately 3 cm axial and 6 cm vertical. Central low attenuation within this mass may represent fluid or necrosis. Hydronephrosis likely secondary to scarring or direct involvement of the ureter. Below this level the right ureter is decompressed. The right external iliac vein is compressed by this process. There is a second ill defined soft tissue mass/process posterior to the bladder and anterior to the rectum , inseparable from adjacent bowel, urinary bladder, and the vaginal cuff. Differential for this mass would also include recurrent tumor and adenopathy with superimposed infection and fistulization with adjacent bowel and/or bladder not excluded. Remaining peritoneal Cavity/Bowel: No free fluid or free air. Extensive sigmoid diverticulosis without definite diverticulitis. Vasculature: No aneurysms or other significant abnormality. Right external iliac vein compression. Bones: T10 sclerotic focus similar to previous. Multilevel degenerative change in the spine with levoscoliosis also similar to previous. Other: Anterior left abdominal wall 5.3 x 2.9 cm low-attenuation structure with possible peripheral enhancement and inferior nodular component similar to prior. Appears to be inseparable from the anterior abdominal wall musculature IMPRESSION: 1. New massive right hydroureteronephrosis. 2. Right pelvic heterogeneous ill-defined soft tissue mass involving the right ureter and right external iliac vein. Question tumor, adenopathy, infection, scarring, necrosis or a combination thereof. 3. Second mass between the urinary bladder and rectum inseparable from the vaginal cuff, bladder, and adjacent sigmoid colon with the same differential. 4. Stable degenerative change and scoliosis in the spine with T10 sclerotic focus. 5. Hiatal hernia no longer seen. 6. Stable hepatic calcifications. Findings regarding the new hydronephrosis and pelvic findings discussed with Krystal David 4 PM 01/09/2019. [facility]
== END 2019-01-09 10:58 | disposition home or self-care (01) ==
LOC: DI 10:57
PROVIDERS: ATTEND Nurse Practitioner Adult Health
DX: C54.1 Malignant neoplasm of endometrium (principal); N13.30 Unspecified hydronephrosis; M79.9 Soft tissue disorder, unspecified; M47.9 Spondylosis, unspecified; M41.9 Scoliosis, unspecified
CPT/HCPCS: 74177; Q9967

== ENCOUNTER 2019-01-10 09:10 | Outpatient (CLI) | payer MEDICARE, MEDICAID ==
--- NOTE | 2019-01-10 18:32 | CONSULTATION NOTE ---
Palliative Care Follow Up - Referral Referring Provider: Dr. Ibrahima Perkins Time of Visit: Referral setting: Home Referral Reason: Recurrent Endometrial CA/Pain of neoplastic origin - Information Sources Records reviewed: Previous records reviewed History/Review of Systems obtained from: Patient Exam limitations: No limitations - History of Present Illness Update Brief HPI Update: This is a 73-year-old woman with metastatic/recurrent endometrial serous adenocarcinoma. She has had a complex course since her hospitalization in [place] in early November, for right leg cellulitis, UTI with sepsis and leukopenia due to her chemotherapy. She is having increased right leg pain and discomfort, cellulitis resolved, but pain did not. Over the course of a couple weeks, what emerged was a significant abscess on the right lateral aspect of her knee and intoHer posterior right lateral thigh. This necessitated an acute visit to the ED for I&D, and originally placement of a Clemons drain loop for promoting for drainage. This was then removed several days later, and the abscesses have continued to improve, she is completed her antibiotics. She has still continued to have a fairly high level of pain and discomfort not only into the knee and left side but has radiated up into her right lower abdomen. She is currently on fentanyl 75 mcg patch, with oxycodone 10 to 20 mg for breakthrough pain, with the drainage of abscesses has improved somewhat but continues to be fairly persistent and uncomfortable. Pain is exacerbated with movement, sitting, nd significantly painful with and CT exam prolonged waiting time yesterday at CT scan. She is most comfortable and pain is relieved and lying flat out, and with low heat on the back of her thigh. Patient unfortunately has not been able to resume her immunotherapy, she had originally been treated most recently with 6 courses of Doxil with significant side effects and Avastin has been on hold given her current infections and homebound status which is improving, she did get her CT scan yesterday. Unfortunately it does show some disease progression, his CT of her abdomen and pelvis showed a new massive right hydronephrosis with the right renal pelvis measuring 3.5 and mid ureter measuring 1.8 cm. Reports a right pelvic heterogeneous ill-defined soft tissue mass does involve the right ureter and the right exterior iliac vein. The scan does question tumor, adenopathy, infection, scarring, necrosis or combination therefore. Of concern is a second mass between the urinary bladder and rectum inseparable from the vaginal cuff, bladder, and adjacent sigmoid colon this is the site of her original recurrence. She is due to see the oncologist on 01/16. It does coincide though with patient's description of pain. She also reports she has been having intermittent vaginal bleeding over the last 3 weeks. On exam patient is much more mobile, she does have significant tenderness in the right lower abdominal abdomen, no masses appreciated. Some tenderness over the pubic area, and her soft tissue mass on her left abdominal wall, continues to enlarge, with more of a fixed feeling and firmness on palpation. Her swelling of her left thigh, is continuing to decrease. On examination The large swelling of the abscess, is now resolved, just a small 1.5 cm of slough whole, draining quigley-brown liquid, posterior thigh Ellen drain hole does appear to be approximated and closed. Today there is no signs or symptoms of infection, but is still some firmness on examination in the posterior of the left thigh. Social History - Living Situation Living arrangement: At home Living Situation: With spouse/s.o. Support System: Patient lives with her Ibrahima, who has complex health problems as well related to TBI, with residual dizziness and weakness. He is very devoted to her, but is limited at times. He is asking appropriate questions, and wants to support her wishes. He has a daughter, who also stops by on a regular basis and provide support to the both of them. She has a caregiver Bee who is her [place] [employer] worker, and has been with her for 5 years and supportive through her cancer process. Medications/Allergies - Medications Home Medications: Ambulatory Orders Medication Instructions Recorded Confirmed Levothyroxine [Synthroid] 100 mcg PO QDAC 04/12/16 01/10/19 Topiramate 300 mg PO QPM 04/12/16 01/10/19 Omeprazole 20 mg PO DAILY 08/17/16 01/10/19 QUEtiapine [SEROquel] 100 tab ORAL QPM 05/09/18 01/10/19 Prochlorperazine Maleate 10 mg PO Q6H PRN #30 tablet 05/12/18 01/10/19 [Compazine] Atorvastatin Calcium 20 mg PO QPM 06/15/18 01/10/19 Sumatriptan Succinate [Imitrex] 100 mg PO DAILY PRN 06/15/18 01/10/19 Cholecalciferol (Vitamin D3) 2,000 unit PO DAILY 06/16/18 01/10/19 [Vitamin D3] Potassium Chloride [K-Dur] 20 meq PO DAILY 07/26/18 01/10/19 Clotrimazole Santos 1 lozenge ORAL TID PRN 10/06/18 01/10/19 Lidocaine 2% [Xylocaine 2%] 0.5 tsp ORAL Q6HR PRN 10/06/18 01/10/19 Apixaban [Eliquis] 5 mg PO BID 12/05/18 01/10/19 Citalopram Hydrobromide [Celexa] 20 mg PO DAILY 12/05/18 01/10/19 Salena-C Bioflavoid 1 tab PO DAILY 12/05/18 01/10/19 Furosemide 20 mg PO DAILY 12/05/18 01/10/19 Iron High Potency 240 mg PO DAILY 12/05/18 01/10/19 Mv-Mn/Folic Acid/Vit K/Euia672 1 tab PO DAILY 12/05/18 01/10/19 [Alive Once Daily Women 50 Plus] Saccharomyces Boulardii [Florastor] 250 mg PO BID 12/05/18 01/10/19 oxyCODONE [Roxicodone] 10 - 20 mg PO Q3HR PRN MDD 8 tabls 12/05/18 01/10/19 fentaNYL [Fentanyl 50mcg patch] 75 mcg TOP .Q3 DAYS 12/11/18 01/10/19 ALPRAZolam [Alprazolam] 0.25 - 0.5 mg PO TID PRN 01/10/19 01/10/19 - Allergies Allergies/Adverse Reactions: Allergies Allergy/AdvReac Type Severity Reaction Status Date / Time mold Allergy Unknown Verified 12/29/18 12:39 Review of Systems - Constitutional Constitutional: reports: Fatigue, Poor appetite, Weight loss. denies: Fever, Chills - Ears, Nose & Throat Ears, Nose & Throat: reports: Dry mouth - Cardiovascular Cardiovascular: reports: Decr. exercise tolerance - Respiratory Respiratory: reports: SOB with exertion. denies: SOB at rest - Gastrointestinal Gastrointestinal: reports: Abdominal pain, Constipation (currently controlled with Senna 2 tabs BID), Poor appetite, Early satiety, Other (taste changes). denies: Nausea - Genitourinary Genitourinary: denies: Dysuria - Musculoskeletal Musculoskeletal: reports: Back pain, Stiffness, Limited range of motion, Muscle weakness, Transfer issues (uses wheelchair for longer distances) - Integumentary Integumentary: reports: Dryness, Other (wound right medial knee; back of right thigh from I & D of abcesses. Drainage improving but still needing daily drsg changes; JOSÉ RN 2 x week) - Neurological Neurological: reports: General weakness, Headache - Psychiatric Psychiatric: reports: Depression, Anxiety (reports worsening;) - Hematologic/Lymphatic Hematologic/Lymphatic: reports: Anemia (11.2 12/19), Blood clots (on xarlto), Recurrent infections (finished Septra for abcess) - All Other Systems All Other Systems: reports: Reviewed and negative Physical Exam - Vital Signs Temperature: 97.6 C Pulse Rate: 96 Respiratory Rate: 18 O2 Saturation: 96 Blood Pressure: 132/68 - Physical Exam General Appearance: positive: No acute distress, Alert Eyes Bilateral: positive: Normal inspection ENT: positive: No signs of dehydration Neck: positive: No JVD, Trachea midline Cardiovascular: positive: Regular rate & rhythm Respiratory: positive: No respiratory distress Abdomen: positive: Nml bowel sounds, Tenderness (right upper and lower quadrant; slight mass left abdominal wall more firm and fixed; size of small orange) Skin: positive: Pallor, Wound (with yellow slough at exit site; about 1.5 cm opening; drain wound in back of thigh closed; surrounding skin still with firmness but swelling much improved; drainage saturated abd size large orange; brownish in color; no odor; changing dressing daily) Extremities: positive: Pedal edema (trace-1+ edema in right calf) Neurologic/Psychiatric: positive: Oriented x3, Mood/affect nml, Weakness, Flat affect Palliative Care - POLST Patient has POLST: Yes POLST Status: DNR, Selective Treatment Pain: Pain improved, Location (See HPI.Patient satsified with current regimen) Tiredness/Fatigue: Severe (7-10) Drowsiness/Sedation: Mild (1-3) Nausea: None Depression: Mild (1-3) Anxiety: Severe (7-10) Dyspnea: None Anorexia: Moderate (4-6) Sleep: Variable sleep pattern Constipation: Yes, Opoid induced, Managed, Comment (using 2 Senna BID) Performance Status: Patient is ambulatory for short distances in her apartment, they are using wheelchair for longer distances as an appointments. She does have limitations mostly related to her pain, and discomfort with sitting. Her activity tolerance is decreased, she is trying to do bed exercises. She does have physical therapy from home health on hold, but will await treatment plan and further resolution of her right leg abscesses and pain. - Palliative Care Discussion: Did discuss initial findings of CT scan secondary to need to correlate pain and pain management, and labs with concerns related to the hydronephrosis. Patient was not surprised, had known cancer was progressing, and is anxious to meet with Dr. Wynn regarding treatment plan. She does have underlying anxiety disorder, reports this is been exacerbated with her current situation, particularly with needing to travel and her ongoing decline. She is quite pragmatic, though she does not want a specific prognosis, she does understand that treatments are of palliative intent, and asked appropriate questions regarding hospice and hospice transition. Ibrahima her joined us for conversation today, we did review at end of life her goals and wishes are to be at home, he does feel like this is something he could support with appropriate support in place. Addressed his questions regarding hospice, end-of-life, and support for himself particularly bereavement follow-up. Patient goals remain to continue treatment as long as the benefits outweigh the burdens, and it will be of benefit. Her focus still remains on quality of life, and has appreciated the support of both the home health care team and palliative care. Did meet with Ibrahima separately, he shared his difficulties with TBI, processing information and just the emotional toll. He has counseling through his [place], [place] program. Does not feel a specific enough to the issues he is facing with Rosemarie. In review, particularly in the future transition with hospice, will go ahead and make referral to the medical palliative care bleach packer for him for support. Results - Lab Results Lab and Imaging Results: Follow up with oncology ELVIS David, as had reviewed findings with oncologist Dr. Wynn yesterday. Will order MACCBC, CMP, and CA 125 with HH RN tomorrows visit. There were no scans done at her stay at [place] in November. 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 Concern regarding right hydronephrosis, and new soft tissue mass posterior to the bladder and anterior rectum. Patient has been on almost continuous antibiotics for her cellulitis, UTI, and most recently her abscess. With her acute right thigh pain improved with I&D of the abscess, her chronic pain of right abdomen, right thoracic/back area can be correlated with exam. She is currently comfortable on her current regimen of fentanyl 75 mcg patch, and has needed decreased breakthrough pain medications other than when she was being transported upright to her CT scan. Patient though does present with escalating anxiety, related to her pain, decline, and overall situation. Palliative care continues to provide support regarding pain and symptom management and anticipatory guidance Recommendations/Counseling Done: 1.Right leg abscess. Her acute pain has improved with the I&D of this, she has needed less breakthrough pain medication, wound is resolving, at this point in time no signs or symptoms of cellulitis or infection. She is changing dressing daily, home health providing support for dressing change and oversight 2 times a week. 2. Acute on chronic pain, pain of neoplastic origin. Patient does present with ongoing progressive pain syndrome this is multifactorial, she is currently on fentanyl 75 mcg patch, using 4-6 tabs of oxycodone 10 mg for breakthrough pain with relief. She is tracking this appropriately. We will continue to monitor, and titrate up or down as indicated. 3. Vaginal bleeding. She reports this is fluctuating, from small amount, to a couple tablespoons on her pads. She has had recurrent vaginal candidiasis as well. She reports this is been fairly persistent for the last 2 to 3 weeks. 4. Constipation. Patient is having more regular bowel movements, using MiraLAX daily and senna 2 tabs twice daily. Patient is aware of the need to keep her bowel movements soft and frequent given her history of bowel obstructions. 5. Anxiety. Patient does have underlying generalized anxiety disorder, has been on clonazepam in the past. Discussed weighing benefits of burdens of moving forward of antianxiety medication. Patient does not want to add to sed ation, or fuzziness. Will trial alprazolam 0.25 mg up to 3 times daily, and evaluate effectiveness. 6. Metastatic endometrial cancer. Reviewed findings, correlate with pain and discomfort, and plan for oncology to see next week. Patient has had ongoing recurrent bladder infections, intermittent hematuria, and vaginal bleeding. Patient's last labs were drawn on 2, will make arrangements for pending oncology appointment and to assess the acuteness of the situation for max CBC, CMP, and CA 125, plan was reviewed with patient. Reviewed given the findings of the CT scan, signs and symptoms to access ED emergently, given patient's goals of care are at this point in time still to weigh benefits and burdens of treating reversible conditions.She is also to follow-up with her primary Germaine LEAL, for further wound check and review of ED visit. 7. Advanced care planning. Patient's goals remain to follow-up with oncologist, is hopeful there are still treatment options for her, though given the complexity of her care, and recent infections. This may be limited. Patient does have a POLST in place, as DNA R/selective treatments. Address both patient's and 's questions regarding hospice and that transition, patient feels that she will know/understand when this time is right. Time Spent: 50 minutes with greater than 50% of this done in counseling regarding signs and symptoms to acutely access ED, pain and symptom management, goals of care, and anticipatory guidance.
== END 2019-01-10 09:11 | disposition home or self-care (01) ==
LOC: PC 09:10
PROVIDERS: ATTEND Nurse Practitioner Adult Health
DX: Z51.5 Encounter for palliative care (principal); L02.415 Cutaneous abscess of right lower limb; G89.3 Neoplasm related pain (acute) (chronic); C54.1 Malignant neoplasm of endometrium; C79.89 Secondary malignant neoplasm of other specified sites; N13.1 Hydronephrosis with ureteral stricture, not elsewhere classified; N93.9 Abnormal uterine and vaginal bleeding, unspecified; B37.3 Candidiasis of vulva and vagina; K59.03 Drug induced constipation; T40.2X5D Adverse effect of other opioids, subsequent encounter; F41.1 Generalized anxiety disorder; F32.9 Major depressive disorder, single episode, unspecified; D64.9 Anemia, unspecified; Z79.01 Long term (current) use of anticoagulants; Z79.899 Other long term (current) drug therapy; Z99.3 Dependence on wheelchair; Z66 Do not resuscitate; Z87.440 Personal history of urinary (tract) infections
CPT/HCPCS: 99349

== ENCOUNTER 2019-01-11 13:13 | Outpatient (CLI) | payer MEDICARE, MEDICAID ==
[2019-01-11 17:14] LABS: HGB - HEMOGLOBIN 12.1 g/dL (12.0-16.0); MEAN CORPUSCULAR HEMOGLOBIN 28.6 pg (27.0-31.0); MEAN CORPUSCULAR VOLUME 89.2 fL (81.0-99.0); MEAN PLATELET VOLUME 7.7 fL (7.9-10.8); NEUTROPHILS # (AUTO) 2.3 10^3/uL (1.5-6.6); NEUTROPHILS % (AUTO) 53.5 %; RED BLOOD COUNT 4.23 10^6/uL (4.20-5.40); RED CELL DISTRIBUTION WIDTH 15.9 % (12.0-15.0); WHITE BLOOD COUNT 4.3 x10^3/uL (4.8-10.8)
[2019-01-11 17:22] LABS: ALBUMIN 3.5 g/dL (3.2-5.5); ALBUMIN/GLOBULIN RATIO 1.1 (1.0-2.2); BILIRUBIN,TOTAL 0.2 mg/dL (0.2-1.0); TOTAL PROTEIN 6.6 g/dL (6.7-8.2)
== END 2019-01-11 13:14 | disposition home or self-care (01) ==
LOC: LAB.R 13:13
PROVIDERS: ATTEND Nurse Practitioner Adult Health
DX: N18.2 Chronic kidney disease, stage 2 (mild) (principal); D64.9 Anemia, unspecified; C54.1 Malignant neoplasm of endometrium
CPT/HCPCS: 80053; 85025; 85027; 86304

== ENCOUNTER 2019-01-25 15:40 | Outpatient (CLI) | payer MEDICARE, MEDICAID ==
--- NOTE | 2019-01-25 17:07 | CONSULTATION NOTE ---
Palliative Care Follow Up - Referral Referring Provider: Dr. 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 She had a history of a complete hysterectomy in early 2016, T2N0. Followed by adjuvant chemotherapy with carbo/Taxol until January 2017, then brachii therapy. She did have a recurrence in May 2018, was on Doxil with Avastin, she also had recurrent disease in her pelvic sidewall and left abdominal wall. She had difficulty with multiple hospitalizations, sepsis. Her most recent hospitalization was in [place] early November, for which she developed right leg cellulitis, UTI with sepsis, as a result of her leukopenia due to her chemotherapy. Her leg was quite swollen when discharged home, eventually developed some abscesses on the external right knee, and back of right thigh, her pain is been escalating along with this, she was sent to the ER on 12/29 and had an I&D done with relief. His wound is continued to improve, though her pain is stayed fairly acute. She also follow-up with her oncologist had a CT scan, that did show severe right hydronephrosis and right hydroureter. The level obstruction is in the right pelvis where a soft tissue mass was found, it measures 3 x 6, there is also another ill-defined soft mass/process posterior to the bladder, anterior to the rectum, involving the urinary bladder and vaginal cuff. And she has a bone mets at T12. His most observant, is her anterior left abdominal wall, the mass is increasing, on CT it was 5.3 x 2.9, it is hard, but not fixed, nor is it breaking through the skin. She met with her oncologist, with very few treatment options left, and worried given her tolerance before, would not expect the duration of any kind of response that they did try the Gemzar. Patient does have an understanding of her poor prognosis, though has not wanted any numbers. Patient is feeling somewhat overwhelmed, reports she is "in denial" regarding her cancer. It is somewhat difficult to ignore the mass in her left abdomen. Her pain is been escalating through this week, and she had increased severe pain and burning, did restart her on some Septra. She reports in the last 24 hours her pain has resolved not only in her bladder, but her leg has improved as well. She denies any abdominal or pelvic pain today, we had also though increased her Duragesic to 100 mcg. She does not need any oxycodone for breakthrough pain for discomfort, and has been able to ambulate out to her living room today. On exam, patient is quite pale, her abdomen is soft, the left abdominal tumor is palpable and hardened. She does have bowel tones, though has not had a bowel movement for several days. She is continued to have small amount of vaginal bleeding, the dysuria has decreased in her urine is clear. Her leg is somewhat dull red in color, swelling has significantly decreased, only able to open areas a small 0.5 x 1 cm area of yellow eschar. With only a small amount of drainage. Only pain in her legs with palpation and dressing change today. She is remained weight neutral at 150, she does have intermittent reflux, and intermittent nausea. She is using the alprazolam on half tab with relief. Her anxiety is better controlled on the alprazolam, the most she is used is up to 1 full tablet. Social History - Living Situation Living arrangement: At home Living Situation: With spouse/s.o. Support System: This with her Ibrahima, he has multiple health problems as well and a TBI. She has a felisa worker Bee, and I met her stepdaughter lives today. She does feel well supported both by her friends family and community. Medications/Allergies - Medications Home Medications: Ambulatory Orders Medication Instructions Recorded Confirmed Levothyroxine [Synthroid] 100 mcg PO QDAC 04/12/16 01/25/19 Topiramate 300 mg PO QPM 04/12/16 01/25/19 Omeprazole 20 mg PO DAILY 08/17/16 01/25/19 QUEtiapine [SEROquel] 100 tab ORAL QPM 05/09/18 01/25/19 Prochlorperazine Maleate 10 mg PO Q6H PRN #30 tablet 05/12/18 01/25/19 [Compazine] Atorvastatin Calcium 20 mg PO QPM 06/15/18 01/25/19 Sumatriptan Succinate [Imitrex] 100 mg PO DAILY PRN 06/15/18 01/25/19 Cholecalciferol (Vitamin D3) 2,000 unit PO DAILY 06/16/18 01/25/19 [Vitamin D3] Potassium Chloride [K-Dur] 20 meq PO DAILY 07/26/18 01/25/19 Clotrimazole Santos 1 lozenge ORAL TID PRN 10/06/18 01/25/19 Apixaban [Eliquis] 5 mg PO BID 12/05/18 01/25/19 Citalopram Hydrobromide [Celexa] 20 mg PO DAILY 12/05/18 01/25/19 Salena-C Bioflavoid 1 tab PO DAILY 12/05/18 01/25/19 Furosemide 20 mg PO DAILY PRN 12/05/18 01/25/19 Iron High Potency 240 mg PO DAILY PRN 12/05/18 01/25/19 Mv-Mn/Folic Acid/Vit K/[id number] 1 tab PO DAILY 12/05/18 01/25/19 [Alive Once Daily Women 50 Plus] oxyCODONE [Roxicodone] 10 - 20 mg PO Q3HR PRN MDD 8 tabls 12/05/18 01/25/19 fentaNYL [Fentanyl 50mcg patch] 100 mcg TOP .Q3 DAYS 12/11/18 01/25/19 ALPRAZolam [Alprazolam] 0.25 - 0.5 mg PO TID PRN 01/10/19 01/25/19 Saccharomyces Boulardii [Florastor] 1 cap PO BID 01/16/19 01/25/19 - Allergies Allergies/Adverse Reactions: Allergies Allergy/AdvReac Type Severity Reaction Status Date / Time mold Allergy Unknown Verified 01/16/19 15:23 Review of Systems - Constitutional Constitutional: reports: Fatigue, Weight stable (150). denies: Fever, Chills - Cardiovascular Cardiovascular: reports: Decr. exercise tolerance - Respiratory Respiratory: denies: SOB at rest - Gastrointestinal Gastrointestinal: reports: Constipation, Nausea (intermittent), Early satiety. denies: Abdominal pain, Vomiting - Genitourinary Genitourinary: denies: Dysuria - Musculoskeletal Musculoskeletal: reports: Stiffness, Muscle weakness - Integumentary Integumentary: reports: Dryness - Neurological Neurological: reports: General weakness - Psychiatric Psychiatric: reports: Anxiety. denies: Depression - Endocrine Endocrine: reports: Hyperthyroidism - Hematologic/Lymphatic Hematologic/Lymphatic: reports: Recurrent infections (utis/leg) - All Other Systems All Other Systems: reports: Reviewed and negative Physical Exam - Physical Exam General Appearance: positive: No acute distress, Alert Eyes Bilateral: positive: Normal inspection ENT: positive: No signs of dehydration Neck: positive: No JVD, Trachea midline Cardiovascular: positive: Regular rate & rhythm Respiratory: positive: No respiratory distress, Breath sounds nml Abdomen: positive: Soft, Tenderness Skin: positive: Pallor, Wound (see hpi) Extremities: positive: Pedal edema (slight edema continues in right leg; much improved) Neurologic/Psychiatric: positive: Oriented x3, Mood/affect nml, Weakness Palliative Care - POLST Patient has POLST: Yes POLST Status: DNR, Selective Treatment Pain: Pain improved, Location (Pain has been localized to the right leg, radiating down the back of her leg. Denies any abdominal or hip pain today, reports has improved since this morning. Has not needed any oxycodone for breakthrough. She is wondering if the antibiotics, for the UTI has actually helped some of the pain in her leg, if she has residual infection. She still has 5 days left, her dysuria has improved, and is feeling better overall.) Tiredness/Fatigue: Severe (7-10) Drowsiness/Sedation: Mild (1-3) Nausea: Mild (1-3) Depression: Mild (1-3) Anxiety: Moderate (4-6) (Reports does get escalating anxiety, particularly regarding thinking about her cancer. She reports that the most she is using 1 mg total of alprazolam.) Dyspnea: None Anorexia: Moderate (4-6) Sleep: Sleeps well Constipation: Yes, Opoid induced, Unmanaged (Patient has been taking MiraLAX daily, senna 2 tabs twice daily, increase that to 3 tabs twice daily is no BM for several days. She is also added back in her probiotics. She feels like she is going to move, does not feel any obstructive symptoms.) Feelings of wellbeing/Perceived Quality of Life: Fair, Acceptable, Improved Performance Status: She is most comfortable laying flat, with her leg outstretched. She has been bedbound, her spending most of her time in bed for actually several years. This is related to her chronic fatigue syndrome. She is usually though ambulatory through the house, and able to manage her own ADLs. She feels like she has a the place that she could increase her activity and work on her activity tolera nce with her pain well controlled - Palliative Care Discussion: Given patient does not have any treatment options at this point in time, she is wondering about the threshold for hospice. She does not want "a number", but we did discuss the 2 requirements for hospice is best we know 6 months or less, though people certainly last longer than this. In fact some people do better on hospice, as well as goals for comfort. This would mean no further acute hospitalizations unless her uncontrolled symptoms, and the goal would be for comfort and focusing on transition at end of life for at home which is congruent with her goals. She is concerned about doing this too soon, wondering if "they can cut out the tumor". We did discuss at this point time is just an annoyance, not symptomatic, may be an option in the future for radiation, most likely not surgical options. Patient does have the risk of further obstruction related to her kidneys. She also is at risk for bowel obstruction in the future as well. Did discuss benefits of increased hospice referral, getting to know the team, support for Ibrahima, and reviewed the hospice benefit and what it provides. She remains somewhat tentative, as well as anxious. Discussed this is not a decision that needs to be made today, and can be transitioned at any point. Addressed all questions she had regarding the hospice benefit and implications. 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 She has met with oncology, and at this point in time her chemotherapy options are limited as far as efficacy. Patient likes to stay positive, but is feeling somewhat overwhelmed with a news of no further life prolonging treatments. She is interested in hospice, just wondering about the transition point. Palliative care to continue provide support for pain and symptom management, transition to hospice when patient ready. Recommendations/Counseling Done: 1. Acute on chronic pain. Pain does have ongoing progressive pain that is multifactorial in origin. Had escalated prior to beginning the week. Had increase Duragesic to 100 mcg patch, she is using oxycodone 10 to 20 mg for breakthrough pain up to 8 to 10 tablets a day prior to this. I also initiated Bactrim for severe symptoms of UTI, she reports her pain overall has decreased to a 0. She is not sedated, are feeling overmedicated. Unclear if her right sharp shooting leg pain and hip pain is related to her infectious process, or is improved because of the patch escalation. Patient's goal is to titrate down, and be off of opioids at some point if possible. We did discuss in the context of her disease, this may fluctuate. Though given the current situation unclear if this is acute versus malignant pain. Patient will decrease her Duragesic patch to 75 mcg tomorrow, use the oxycodone for breakthrough pain, and we will keep her there until she is finished with her Bactrim. She will notify me though if the pain escalates over the weekend, and we will put her back on 100 mcg and I will drop off a prescription at [facility] if needed. She is satisfied with this plan to be her goals of dose reduction, but clear she wants good pain control as well. Metastatic/recurrent endometrial serous adenocarcinoma, abdominal/pelvic mets now with documentation of progressive disease. Patient at high risk for multiple sequela regarding to progressive tumor burden, including kidney failure, obstruction, fistula, and recurrent UTIs. Patient does have small amount of vaginal bleeding. We will continue to monitor, patient has not d ecided about transition to hospice yet, but also hoping to avoid hospitalization. 3. Right leg abscess. Her acute pain has essentially resolved, her wound is improving, swelling decreased. Home health RN continue support for dressing changes and oversight 2 times a week. 4. Constipation. Patient's bowels have been doing better on her daily MiraLAX and senna 2 twice daily, instructed to increase to 3 twice daily more consistently, and to increase to 3 times daily temporarily until bowel movement. 5. Anxiety. Patient does have known underlying generalized anxiety disorder. She has benefited and feels the alprazolam 0.25 mg up to 3 times a day has been effective. She reports she has been using about 1 mg total. She does find it actually works best if she is having some nausea as well. 6. Advanced care planning. Counseling session regarding hospice, hospice benefit, goals of care, acknowledging grief and loss and impending decline. Anticipatory guidance was provided within the scope of patient's comfort zone. Patient will continue to consider, at this point will continue with palliative care and HH. Time Spent: 50 minutes is greater than 50% of this done in counseling regarding the hospice benefit, pain management, goals of care, and education on disease and disease progression.
== END 2019-01-25 15:41 | disposition home or self-care (01) ==
LOC: PC 15:40
PROVIDERS: ATTEND Nurse Practitioner Adult Health
DX: Z51.5 Encounter for palliative care (principal); C54.1 Malignant neoplasm of endometrium; G89.3 Neoplasm related pain (acute) (chronic); C78.6 Secondary malignant neoplasm of retroperitoneum and peritoneum; C79.89 Secondary malignant neoplasm of other specified sites; N13.30 Unspecified hydronephrosis; N13.4 Hydroureter; N39.0 Urinary tract infection, site not specified; L02.415 Cutaneous abscess of right lower limb; F41.9 Anxiety disorder, unspecified; N93.9 Abnormal uterine and vaginal bleeding, unspecified; R53.82 Chronic fatigue, unspecified; M79.604 Pain in right leg; K59.03 Drug induced constipation; T40.2X5D Adverse effect of other opioids, subsequent encounter; Z66 Do not resuscitate; Z79.891 Long term (current) use of opiate analgesic; Z74.01 Bed confinement status; Z90.710 Acquired absence of both cervix and uterus; Z92.21 Personal history of antineoplastic chemotherapy
CPT/HCPCS: 99349

== ENCOUNTER 2019-02-12 14:28 | Outpatient (CLI) | payer MEDICARE, MEDICAID ==
--- NOTE | 2019-02-12 17:41 | CONSULTATION NOTE ---
Palliative Care Follow Up - Referral Referring Provider: Dr. Ibrahima Perkins Time of Visit: [id number] Referral setting: Home Referral Reason: Recurrent Endometrial serous adenocarcinoma - Information Sources Records reviewed: Previous records reviewed History/Review of Systems obtained from: Patient Exam limitations: No limitations - History of Present Illness Update Brief HPI Update: This is a darius 73-year-old woman who had been following for her metastatic/recurrent endometrial serous carcinoma. She has a history of a complete hysterectomy in early 2016, T2N0 tumor. She had a follow-up adjuvant chemotherapy with carbo Taxol until January 2017 then had brachii therapy/radiation. Unfortunately she did have a recurrence at the vaginal cuff in May 2018, was treated with Doxil with Avastin, she also had recurrent disease in her pelvic sidewall and her left abdominal wall. She had multiple hospitalizations secondary to side effects of her chemotherapy including pancytopenia. Her last one was in early November, with right leg cellulitis, UTI with sepsis, and also has a history of a DVT back in June 2018 and her right groin. Patient eventually was discharged home, she had developed some abscesses that finally showed themselves at the level of knee and back of thigh, her escalating pain along with visualized abscesses, she was sent to the ER on 12/29 and had an I&D done with relief. Her wound still has an open area in the back of her thigh, but no further drainage. In follow-up with her oncologist and a CT scan that did show severe right hydronephrosis and pressure on her right hydroureter. There was a soft tissue mass measuring 3 x 6 at the level of the right pelvis involving the right ureter and the right external iliac vein. It is assumed that it is tumor, she had adenopathy and infection, scarring, and necrosis or thought to be a combination of there of. She has a second mass between the urinary bladder and rectum inseparable from the vaginal cuff, bladder, and adjacent sigmoid colon with the same differential, and degenerative changes and scoliosis in the spine with T10 sclerotic focus. She also has a notable tumor that is palpable in the anterior left abdominal wall, its about 5 x 3 cm it is hard but not fixed nor breaking through the skin.She met with Dr. Barksdale, given the fact that there few treatment options left, and worried about her experience as before, she would not expect any duration of response even if they did try the Gemzar, patient does understand her poor prognosis and was left to make the decision when she wanted to transition to hospice. Spoke to the patient last week, she was having escalating pain, she feels like she can feel her body changing and is ready for hospice. We did agree to one last visit, to further help with her transition and understanding. She does have underlying anxiety disorder, but is quite accepting of her imminent decline. But does not want any timelines if can be helped. Her most prominent symptom has been her pain, she is currently on 100 mcg of fentanyl, over the weekend is continued to escalate she has been using oxycodone 10-12 tabs of 10 mg for an equivalent 120 mg of oxycodone. She would like to have her pain better managed with the fentanyl, with each escalation we have gotten control, it has been a good vehicle for her as she is managing her own medications. Her has a TBI, so ease of application of the patch has been significant in there. We agreed given her escalating level of pain, and her oxycodone use, would increase her to 150 mcg fentanyl patch, as 120 oxycodone would more than meet the equal analgesic dosing. The recent changes to be aware of is that we recently stopped her Xarelto, this was as a result of increased vaginal bleeding, discussing the benefits and burdens of stopping. Given patient has had history of hematuria, and now with easton bleeding, her DVT was back in June it was agreed to stop. She has not had any recurrent bleeding or hematuria. Patient does have history though of recurrent UTIs, we did discuss this could still be treated on hospice. Patient's other underlying health problems include long-standing autoimmune dysfunction including but not limited to chronic fatigue syndrome, fibromyalgia, chronic migraines, eczema, anxiety disorder, sleep apnea not currently on CPAP. Social History - Living Situation Living arrangement: At home Living Situation: With spouse/s.o. Support System: Patient lives at home with her Ibrahima, he has multiple health problems as well and a TBI. He is quite anxious but is wanting to keep her at home and be a good caregiver. She has a [employer] P[employer] worker Bee who has been with her for several years, and her stepdaughter lives who comes on a regular daily basis to provide support as well. She is feeling well supported by her family and community, and is hoping to be able to have a successful transition to a at home. Medications/Allergies - Medications Home Medications: Ambulatory Orders Medication Instructions Recorded Confirmed Levothyroxine [Synthroid] 100 mcg PO QDAC 04/12/16 01/25/19 Topiramate 300 mg PO QPM 04/12/16 01/25/19 Omeprazole 20 mg PO DAILY 08/17/16 01/25/19 QUEtiapine [SEROquel] 100 tab ORAL QPM 05/09/18 01/25/19 Prochlorperazine Maleate 10 mg PO Q6H PRN #30 tablet 05/12/18 01/25/19 [Compazine] Sumatriptan Succinate [Imitrex] 100 mg PO DAILY PRN 06/15/18 01/25/19 Cholecalciferol (Vitamin D3) 2,000 unit PO DAILY 06/16/18 01/25/19 [Vitamin D3] Potassium Chloride [K-Dur] 20 meq PO DAILY 07/26/18 01/25/19 Clotrimazole Santos 1 lozenge ORAL TID PRN 10/06/18 01/25/19 Citalopram Hydrobromide [Celexa] 20 mg PO DAILY 12/05/18 01/25/19 Salena-C Bioflavoid 1 tab PO DAILY 12/05/18 01/25/19 Furosemide 20 mg PO DAILY PRN 12/05/18 01/25/19 Iron High Potency 240 mg PO DAILY PRN 12/05/18 01/25/19 Mv-Mn/Folic Acid/Vit K/Aydp518 1 tab PO DAILY 12/05/18 01/25/19 [Alive Once Daily Women 50 Plus] oxyCODONE [Roxicodone] 10 - 20 mg PO Q3HR PRN MDD 10 tabs 12/05/18 01/25/19 fentaNYL [Fentanyl 50mcg patch] 150 mcg TOP .Q3 DAYS 12/11/18 01/25/19 ALPRAZolam [Alprazolam] 0.25 - 0.5 mg PO TID PRN 01/10/19 01/25/19 Saccharomyces Boulardii [Florastor] 1 cap PO BID 01/16/19 01/25/19 Polyethylene Glycol 3350 [Miralax] 17 gm PO DAILY MDD up to BID 02/12/19 02/12/19 Senna [Senokot] 2 tab PO TID 02/12/19 - Allergies Allergies/Adverse Reactions: Allergies Allergy/AdvReac Type Severity Reaction Status Date / Time mold Allergy Unknown Verified 01/16/19 15:23 Review of Systems - Constitutional Constitutional: reports: Fatigue, Weight loss - Ears, Nose & Throat Ears, Nose & Throat: reports: Dry mouth - Cardiovascular Cardiovascular: reports: Decr. exercise tolerance - Respiratory Respiratory: denies: SOB at rest - Gastrointestinal Gastrointestinal: reports: Reflux/heartburn, Early satiety (but improved appetite), Other (rectal pressure). denies: Constipation, Rectal bleeding, Nausea - Genitourinary Genitourinary: reports: Dysuria (mild). denies: Hematuria - Musculoskeletal Musculoskeletal: reports: Stiffness, Muscle weakness - Integumentary Integumentary: reports: Dryness - Neurological Neurological: reports: General weakness, Memory problems (mild STM at times) - Psychiatric Psychiatric: reports: Anxiety. denies: Depression - Hematologic/Lymphatic Hematologic/Lymphatic: reports: Anemia, Recurrent infections (UTIS), Other (MRSA colonized + nares; wound was not positive) - All Other Systems All Other Systems: reports: Reviewed and negative Physical Exam - Vital Signs Temperature: 96.4 C Pulse Rate: 71 Respiratory Rate: 18 O2 Saturation: 97 (ra @ rest) Blood Pressure: 132/72 - Physical Exam General Appearance: positive: Mild distress, Anxious Eyes Bilateral: positive: Normal inspection ENT: positive: No signs of dehydration. negative: Oral lesions Neck: positive: No JVD, Trachea midline Cardiovascular: positive: Regular rate & rhythm Respiratory: positive: No respiratory distress Abdomen: positive: Soft, Nml bowel sounds, Tenderness Skin: positive: Pallor, Dryness, Bruising Extremities: positive: No pedal edema Neurologic/Psychiatric: positive: Oriented x3, Mood/affect nml, Weakness Palliative Care - POLST Patient has POLST: Yes POLST Status: DNR Pain: Pain worsening, Location (see HPI; Pain is mostly localized to right mid lower back area, deep pelvic, complains of increased pain across her lower lum bar region, she is also had a fall wondering if that exacerbated a disc or her back pain; she also has some vague deep pain around her rectal area vaginal area. These are correlated with where her tumor burden is. She does have some new right arm pain, though in observing her moving herself around the bed, she is mostly using that for bed mobility.) Tiredness/Fatigue: Severe (7-10) Drowsiness/Sedation: Moderate (4-6) Nausea: None Depression: Mild (1-3) Anxiety: Moderate (4-6), Comment (Very anxious about what hospice is going to look like, what to expect,) Dyspnea: Mild (1-3) Anorexia: Mild (1-3), Weight loss Sleep: Sleeps well Constipation: Yes, Opoid induced, Managed Feelings of wellbeing/Perceived Quality of Life: Fair, Acceptable, Worsening Performance Status: Patient is mostly bedbound, she can get up and ambulate to the bathroom with little effort. She does at this point tolerate bed baths better. She does ambulate for short periods of time out to the living room and back. I would put her at a PPS of 50% - Palliative Care Discussion: Met with patient and regarding questions about transitioning to hospice. She does feel like her time is good for making this transition, she does feel herself "deteriorating". She has been disappointed with her escalating pain, she has some interesting spiritual believes regarding Shirley and feels like this is not frightening, but does not want any boundaries put around her timeline for end-of-life aware it is coming. We were talking about an analogy of a car running out of gas, she feels like she is bothering towards the end. They have been concerns regarding what to look like, discussed the hospice team the support available Ibrahima wants to make sure he knows how to call and get support if needed. He very much wants to do this but is somewhat limited. They do have Ibrahima his daughter, who is been very supportive and a very season caregiver Bee. A few significant worries are actually have to do the financial stressors of making plans, how this is going to be paid for, and how best to facilitate this. I did reassure her that the social professionals from the hospice team will be working with them on this. Ibrahima is already been receiving support from the palliative care shoulder puncher Jacey, so this should be it easy transition as far as ongoing support for him. 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 Patient is having escalating pain, increased fatigue, and decline in functional status. She does recognize her impending decline, and is open to transitioning to hospice today. Recommendations/Counseling Done: 1. Pain of neoplastic origin. Patient does have ongoing progressive pain that is multifactorial in origin, her pain is been fairly well controlled on Duragesic 100 mcg patch, fact had been looking at titrating it back to 75 mcg. She has had an escalation over this last week, she has been using 10-12 tabs of the oxycodone for breakthrough, agreed after much discussion to increase her to 150 mcg, she did have a 50 mcg patch left, she will need a new prescription of this with hospice initiation tomorrow. 2. Metastatic/recurrent endometrial serous adenocarcinoma, abdominal/pelvic max now with documentation of progressive disease. Patient is at high risk for multiple sequela regarding to her progressive symptom burden, including kidney failure, obstruction, fistula, and ongoing recurrent UTIs. Patient did have an escalation in her bleeding vaginally, did stop the Xarelto this is since resolved. Patient feeling at this point in time she is ready to transition to hospice. 3. Right leg abscesses. Her acute pain is essentially resolved, swelling decreased, home health RN had been providing support for dressing changes and oversight, there is still an open area but no more drainage. 4. Constipation. Patient has been doing better with her daily MiraLAX and senna 2-3 times daily, she is titrating appropriately. 5. Anxiety. Patient has known underlying generalized anxiety disorder, she is using alprazolam on 0.251 to 2 tablets twice daily with good effect. She finds this also is addressing her nausea as well. 6. Generalized weakness. We did discuss practicality given her current living situation of a hospital bed. They have a huge solid would Esteban Buck in a small apartment, feels like she could be comfortable in her bed if were able to get a 2 or 3 inch memory foam, she would like to sleep with her as long as possible, we did discuss the end of life may need to set up a hospital bed for care but could do this out in the living room. We will follow-up with molina mendes if willing to purchase a memory foam overlay for her current situation. 7. Advanced care planning counseling provided regarding transitioning to hospice, hospice benefit, addressing concerns and anxieties over transitioning. Counseling provided regarding knowledge grief and loss with impending decline, as well as anticipatory guidance provided with the scope of patient's level of comfort. Patient scheduled to transition to hospice tomorrow. Patient's going to need to Duragesic 50 mcg patches on admit, please explore SHREDDED FILLER CUTTER OPERATOR as soon as possible arrangements, and if we can obtain a memory foam overlay through hospice funds. Time Spent: 45 minutes with greater than 50% of this done in counseling regarding transitioning to hospice, counseling regarding titration of pain management medications, and anticipatory guidance
== END 2019-02-12 14:29 | disposition home or self-care (01) ==
LOC: PC 14:28
PROVIDERS: ATTEND Nurse Practitioner Adult Health
DX: Z51.5 Encounter for palliative care (principal); C54.1 Malignant neoplasm of endometrium; G89.3 Neoplasm related pain (acute) (chronic); C79.89 Secondary malignant neoplasm of other specified sites; F41.9 Anxiety disorder, unspecified; L02.415 Cutaneous abscess of right lower limb; R53.82 Chronic fatigue, unspecified; M79.7 Fibromyalgia; G43.909 Migraine, unspecified, not intractable, without status migrainosus; L30.9 Dermatitis, unspecified; G47.30 Sleep apnea, unspecified; D64.9 Anemia, unspecified; K59.03 Drug induced constipation; T40.605A Adverse effect of unspecified narcotics, initial encounter; R53.1 Weakness; Z22.322 Carrier or suspected carrier of Methicillin resistant Staphylococcus aureus; Z79.891 Long term (current) use of opiate analgesic; Z66 Do not resuscitate; Z92.3 Personal history of irradiation; Z87.440 Personal history of urinary (tract) infections; Z90.79 Acquired absence of other genital organ(s); Z92.21 Personal history of antineoplastic chemotherapy; Z86.718 Personal history of other venous thrombosis and embolism
CPT/HCPCS: 99349